=== PATIENT | female | born 1985 | race Caucasian/White ===

== ENCOUNTER → 2018-02-10 16:36 | Outpatient (CLI) | payer MEDICAID, SELFPAY | PROVIDERS: Visit Provider Obstetrics & Gynecology | DX: R31.9 Hematuria, unspecified (principal) | CPT/HCPCS: 87086; 87088 ==

== ENCOUNTER → 2018-05-16 11:19 | Outpatient (CLI) | payer MEDICAID, SELFPAY ==
[2018-05-16 15:18] LABS: Chlamydia Trachomatis by PCR Negative (Negative); Neisserai gonorrhoeae by PCR Negative (Negative); Probe Check PASS; Sample Adequacy Control PASS; Specimen Processing Control PASS
== END ==
PROVIDERS: Visit Provider Obstetrics & Gynecology
DX: Z11.3 Encounter for screening for infections with a predominantly sexual mode of transmission (principal)
CPT/HCPCS: 87491; 87591

== ENCOUNTER → 2018-08-29 16:53 | Outpatient (CLI) | payer MEDICAID, SELFPAY ==
[2018-08-29 18:58] LABS: Chlamydia Trachomatis by PCR Negative (Negative); Neisserai gonorrhoeae by PCR Negative (Negative); Probe Check PASS; Sample Adequacy Control PASS; Specimen Processing Control PASS
== END ==
PROVIDERS: Visit Provider Obstetrics & Gynecology
DX: N39.0 Urinary tract infection, site not specified (principal); Z11.3 Encounter for screening for infections with a predominantly sexual mode of transmission
CPT/HCPCS: 87086; 87088; 87491; 87591

== ENCOUNTER → 2018-10-20 11:15 | Outpatient (CLI) | payer MEDICAID, SELFPAY ==
[2018-10-20 15:11] LABS: HIV - WCH Non-Reactive (Nonreactive)
[2018-10-26 08:22] LABS: HPV HC, High Risk Positive (Negative); HPV Reflexed? YES, CHARGE PATIENT
--- OUTSIDE RECORDS SUMMARY | 2018-12-15 09:33 | XMS RPT_ITS ---
:1985 Author Organization OHIP Care Team Providers Name Role Phone LUIS FERNANDO FLORES Attending Unavailable LUIS FERNANDO FLORES Referring Unavailable LUIS FERNANDO FLORES Referring Unavailable LUIS FERNANDO FLORES Attending Unavailable LUIS FERNANDO FLORES Attending Unavailable SANDRA LUIS FERNANDO L Referring Unavailable FRANCISCO LEELA L ([facility]) Attending Unavailable FRANCISCO LEELA L ([facility]) Referring Unavailable FRANCISCO, LEELA L ([facility]) Referring Unavailable Marge Haro Attending Unavailable Marge Haro Attending Unavailable Marge Haro Attending Unavailable Marge Haro Attending Unavailable PROBLEMS PROBLEMS DATE TYPE CONDITION / CODE ATTENDING STATUS SOURCE 10/20/2018 Unknown Z12.4 - Encounter Marge Haro Active [facility] for screening for Community malignant neoplasm [facility] / Repository Z12.4(ICD-10) 10/20/2018 Unknown Z11.3 - Encounter Marge Haro Active [facility] for screening for Community infections with a Hospital predominantly Repository sexual mode of transmission / Z11.3(ICD-10) 08/29/2018 Unknown N39.0 - Urinary Marge Haro Active [facility] tract infection, Community site not specified Hospital / N39.0(ICD-10) Repository 06/23/2018 Active Lower abdominal NA Active [facility] pain, unspecified / [facility] [place] R10.30(ICD-10) Repository 06/23/2018 Active Diarrhea, NA Active [facility] unspecified / [place] R19.7(ICD-10) Repository 06/23/2018 Active Cervicalgia / NA Active [facility] M54.2(ICD-10) [facility] Repository 02/27/2018 Active Other detention NA Active [facility] (current) drug [facility] therapy / Repository Z79.899(ICD-10) 02/27/2018 Active Nontoxic NA Active [facility] multinodular goiter [facility] / E04.2(ICD-10) Repository 02/10/2018 Unknown R31.9 - Hematuria, Marge Haro Active [facility] unspecified / Community R31.9(ICD-10) Hospital Repository PROCEDURES PROCEDURES No Procedure Records FoundRESULTS RESULTS HIV - [facility] Collected: 10/20/2018 Status: F Source: [facility] 11:18 AM [facility] REPOSITORY TYPE CODE TESTS RESULT OUT OF RANGE REFERENCE UNITS LAB L3890.6005 Nonreactive Normal HIV - [facility] Non-Reactive Performed By: #### L3890.6005 #### [facility] [place], [address] PAP I-G W/RFX HRHPV Collected: 10/20/2018 Status: F Source: [facility] 10:45 AM [facility] REPOSITORY Order Comment: CYTOLOGY INFORMATION: - CLINICAL INFORMATION: - DATE LMP/MENOPAUSE: 10/15/18 LMP - COLLECTION VIAL: Thin Prep Vial - FILTER WASHER SOURCE: CERVICAL/ENDOCERVICAL - COLLECTION TECHNIQUE: BRUSH/SPATULA Specimen Comment: [id number] Specimen Comment: Source.............Cervix;Endocervix Specimen Comment: LMP / Prev Treat...[id number] Specimen Comment: No. of containers..01 ThinPrep Vial TYPE CODE TESTS RESULT OUT OF REFERENCE UNITS RANGE LAB L7400.0800 . High DIAGN Comment Result Comment: EPITHELIAL CELL ABNORMALITY. ATYPICAL SQUAMOUS CELLS OF UNDETERMINED SIGNIFICANCE. LAB L7400.0900 . Normal ADEQ Comment Result Comment: Satisfactory for evaluation. Endocervical and/or squamous metaplastic cells (endocervical component) are present. LAB L7400.1300 . High RECOMM Comment Result Comment: Suggest follow up as clinically appropriate. LAB L7400.1400 . Normal PERFORM Comment Result Comment: Tenzin Delatorre, Quality Control Associate (ASCP) LAB L7400.1700 . Normal SIGN Comment Result Comment: Mich Loza MD, Pathologist LAB L7400.1720 . Normal Path prov. Comment ICD9 Result Comment: R87.610 LAB L7400.2575 . Normal TEST METHOD Comment Result Comment: This liquid based ThinPrep(R) pap test was screened with the use of an image guided system. LAB L7400.2600 . Normal . COMM LAB L7400.2700 . Normal PAPSMR Comment Result Comment: The Pap smear is a screening test designed to aid in the detection of premalignant and malignant conditions of the uterine cervix. It is not a diagnostic procedure and should not be used as the sole means of detecting cervical cancer. Both false-positive and false-negative reports do occur. LAB L7400.2800 . Normal HPV RFLX Comment Result Comment: See below for HPV testing results. LAB L7400.2900 Negative High HPV HC,HGH Positive RISK Result Comment: This high-risk HPV test detects thirteen high-risk types (16/18/31/33/35/39/45/51/52/56/58/59/68) without differentiation. Performed at: - [facility] [id number] [employer] Specialist: Francie Evans MD, Phone: [phone] Performed at: =[facility] [id number] [employer] Specialist: Francie Evans MD, Phone: [phone] Performed By: #### L7400.0350 #### [facility] (refer to report for specific site) refer to report for address and phone number PROGRESS Observed: 09/25/2018 Status: COMPLETED Source: [facility] 1:33 PM [facility] RE[facility] HNO ID: [id number] Author: Gala Nazario Service: (none) Author Type: Nurse Practitioner Type: Progress Notes Filed: 09/25/2018 1:41 PM Note Text: Subjective HPI Pt presents with c/o flu like sx x 4 days. Reports abrupt onset, sneezing, runny nose, sore throat, fever, chills, myalgias, frequent, dry, nonproductive cough. Did not get influenza vaccines this season. No known exposure to sick contacts. Has been taking dayquil with minimal improvement of sx. Denies increased WOB, dyspnea. Review of Systems Constitutional: Positive for chills, fever and malaise/fatigue. HENT: Positive for congestion and sore throat. Negative for ear pain and sinus pain. Respiratory: Positive for cough. Negative for hemoptysis, sputum production, shortness of breath and wheezing. Musculoskeletal: Positive for myalgias. Skin: Negative for rash. Objective Physical Exam Constitutional: She is oriented to person, place, and time and well-developed, well-nourished, and in no distress. No distress. HENT: Head: Normocephalic. Right Ear: Hearing, tympanic membrane, external ear and ear canal normal. Left Ear: Hearing, tympanic membrane, external ear and ear canal normal. Nose: Nose normal. Right sinus exhibits no maxillary sinus tenderness and no frontal sinus tenderness. Left sinus exhibits no maxillary sinus tenderness and no frontal sinus tenderness. Mouth/Throat: Uvula is midline, oropharynx is clear and moist and mucous membranes are normal. No oropharyngeal exudate, posterior oropharyngeal edema, posterior oropharyngeal erythema or tonsillar abscesses. Eyes: Pupils are equal, round, and reactive to light. Conjunctivae are normal. Right eye exhibits no discharge. Left eye exhibits no discharge. Neck: Neck supple. Cardiovascular: Normal rate, regular rhythm and normal heart sounds. Exam reveals no gallop and no friction rub. No murmur heard. Pulmonary/Chest: Effort normal and breath sounds normal. No accessory muscle usage. No tachypnea. No respiratory distress. She has no decreased breath sounds (CTA, good air movement throughout, no cough noted during exam.). She has no wheezes. She has no rhonchi. She has no rales. Lymphadenopathy: She has no cervical adenopathy. Neurological: She is alert and oriented to person, place, and time. Skin: Skin is warm. She is not diaphoretic. BP 118/80 Pulse 98 Temp 37.4 ?C (99.3 ?F) (Tympanic) Wt 91 kg (200 lb 9.6 oz) SpO2 95% BMI 36.69 kg/m? .Patient presents with: Cough: chills/night sweats, congestion x3-4 days PAST MEDICAL HISTORY Diagnosis Date - Left knee pain since childhood - Left thyroid nodule 02/2016 - PMH - PAST MEDICAL HISTORY OF CHILDHOOD SEIZURES; none since age 8 - induced hypertension - Thyromegaly 02/2016 PAST SURGICAL HISTORY Procedure Laterality Date - [facility] 2010 - REMOVAL OF TONSILS,<12 Y/O 2000 Tonsillectomy ALLERGIES Amoxicillin MEDICATIONS fluticasone (FLONASE) 50 mcg/actuation nasal spray Use 2 Sprays in each nostril once daily. Rinse mouth after use. cetirizine (ZYRTEC) 10 mg tablet Take 1 tablet by mouth once daily. Cayiaaxghxslv-Bddhnwzfyfxjz-WH (TYLENOL COLD HEAD CONGEST SEVR) 5-325-200 mg tab Take 1 Dose by mouth as directed. benzonatate (TESSALON PERLES) 100 mg capsule Take 1 capsule by mouth three times daily as needed. lidocaine viscous (LIDOCAINE VISCOUS) 2 % solution Gargle and spit 10-15mLs every 3-4 hours as need for throat discomfort. FAMILY HISTORY Problem Relation Age of Onset - Alcohol/Drug Mother ALCOHOL - Alcohol/Drug Father ALCOHOL AND DRUGS - Diabetes Maternal Grandmother - Emphysema Maternal Grandmother - Stroke Maternal Grandmother - Asthma Brother - Heart Maternal Aunt 45 - Heart Maternal Uncle 45 Social History Substance Use Topics - Smoking status: Never Smoker - Smokeless tobacco: Never Used - Alcohol use No ASSESSMENT/PLAN: 1. Influenza-like illness - ICD9: 799.89, ICD10: R69 - VUHFHAMFTACZJ-ZISHMEAADVHQB-QOAFDHQSNCG 5 MG-325 MG-200 MG TABLET - BENZONATATE 100 MG CAPSULE - LIDOCAINE 2 % MUCOSAL SOLUTION Reviewed and printed influenza education. The patient is instructed to return or seek emergency treatment if symptoms become worse or with any acute change in condition. The patient verbalizes understanding and is in agreement with plan of care. Gala Nazario CNP CNOV Observed: 09/25/2018 Status: COMPLETED Source: [place] 1:30 PM [facility] REPOSITORY Office Visit (WSTR) CATRACHITA LANDERS ([id number]) 1985 F Date Time Provider Department 09/25/18 1:30 PM GALA NAZARIO [facility] During your visit today, we recorded the following information about you: Temperature Pulse Blood pressure Weight 99.3 degrees 98/minute 118/80 91 kg Gala Nazario APRN.CNP 09/25/2018 1:31 PM Signed Flu (Influenza) What is the flu? The flu is a viral infection of the nose, throat, trachea, and bronchi that occurs every winter. Major epidemics every 3 or 4 years (for example, influenza). The main symptoms are a stuffy nose, sore throat, and nagging cough. There may be more muscle pain, headache, fever, and chills than colds usually cause. For most people, influenza is just a bad cold and bed rest is not necessary. Flu is not dangerous to people who are otherwise healthy. How can I take care of my child? The treatment of flu depends on a child's main symptoms and is no different from the treatment for other viral respiratory infections. Bed rest is not necessary. Fever or aches Use acetaminophen (Tylenol) every 6 hours or ibuprofen (Advil) every 8 hours for fever over 102?F (39?C). Children and adolescents who may have influenza should never take aspirin because it may cause Reji's syndrome. Cough or hoarseness For children over age 4 give cough drops. If your child is 1 to 4 years old, give corn syrup (1/2 to 1 teaspoon as needed). Sore throat Use hard candy for children over 4 years old. Warm chicken broth may also help children over 1 year old. Stuffy nose Warm-water or saline nosedrops and suction (or nose blowing) will open most blocked noses. Use nasal washes at least four times a day or whenever your child can't breathe through the nose. Saline nosedrops are made by adding 1/2 teaspoon of salt to 1 cup of warm water. Contagiousness Influenza spreads rapidly because the incubation period is only 24 to 36 hours and the virus is very contagious. Your child may return to day care or school after the fever is gone and he feels up to it. Does my child need antiviral medicine? Most healthcare providers do not use antiviral medicines because they only reduce the time that your child is sick by a day or so. Usually the runny nose lasts 7 to 14 days and the cough lasts 2 to 3 weeks. All antiviral medicines must be given within 48 hours of the start of influenza symptoms to have an effect. Antiviral medicine is usually only used to treat children at high-risk for complications from the flu. Talk with your healthcare provider about this. Does my child need a flu shot? Yearly flu shots have always been recommended for high-risk children over 6 months of age. These children often have complications from influenza, such as pneumonia. Parents and siblings of high-risk children should also get a flu shot. Children are considered high-risk if they have the following conditions: Lung disease, such as asthma Heart disease, such as a congenital heart disease Muscle disease, such as muscular dystrophy Metabolic disease, such as diabetes Renal disease, such as nephrotic syndrome Cancer or immune system conditions Diseases requiring long-term aspirin therapy. In 2006, the [place] [employer] added all children age 6 months to 5 years to the list of people who should get a flu shot. Recent research has shown that healthy children younger than 24 months are at as great a risk of complications as children with the high-risk conditions listed above. When should I call my child's healthcare provider? Call IMMEDIATELY if: Your child is having trouble breathing. Your child starts to act very sick. Call during office hours if: Your child develops any complications such as an earache, sinus pain or pressure, or a fever lasting over 3 days. You have other questions or concerns. Published by [employer]. This content is reviewed periodically and is subject to change as new health information becomes available. The information is intended to inform and educate and is not a replacement for medical evaluation, advice, diagnosis or treatment by a healthcare professional. Written by Vipul Alexis M.D., author of Your Child's Health, [employer]. Copyright ? 2006 [employer] and/or one of its subsidiaries. All Rights Reserved. Copyright ? [employer] 2008 Pediatric Advisor Gala Nazario APRN.REFINERY PIPELINE OPERATOR 09/25/2018 1:41 PM Signed Subjective HPI Pt presents with c/o flu like sx x 4 days. Reports abrupt onset, sneezing, runny nose, sore throat, fever, chills, myalgias, frequent, dry, nonproductive cough. Did not get influenza vaccines this season. No known exposure to sick contacts. Has been taking dayquil with minimal improvement of sx. Denies increased WOB, dyspnea. Review of Systems Constitutional: Positive for chills, fever and malaise/fatigue. HENT: Positive for congestion and sore throat. Negative for ear pain and sinus pain. Respiratory: Positive for cough. Negative for hemoptysis, sputum production, shortness of breath and wheezing. Musculoskeletal: Positive for myalgias. Skin: Negative for rash. Objective Physical Exam Constitutional: She is oriented to person, place, and time and well-developed, well-nourished, and in no distress. No distress. HENT: Head: Normocephalic. Right Ear: Hearing, tympanic membrane, external ear and ear canal normal. Left Ear: Hearing, tympanic membrane, external ear and ear canal normal. Nose: Nose normal. Right sinus exhibits no maxillary sinus tenderness and no frontal sinus tenderness. Left sinus exhibits no maxillary sinus tenderness and no frontal sinus tenderness. Mouth/Throat: Uvula is midline, oropharynx is clear and moist and mucous membranes are normal. No oropharyngeal exudate, posterior oropharyngeal edema, posterior oropharyngeal erythema or tonsillar abscesses. Eyes: Pupils are equal, round, and reactive to light. Conjunctivae are normal. Right eye exhibits no discharge. Left eye exhibits no discharge. Neck: Neck supple. Cardiovascular: Normal rate, regular rhythm and normal heart sounds. Exam reveals no gallop and no friction rub. No murmur heard. Pulmonary/Chest: Effort normal and breath sounds normal. No accessory muscle usage. No tachypnea. No respiratory distress. She has no decreased breath sounds (CTA, good air movement throughout, no cough noted during exam.). She has no wheezes. She has no rhonchi. She has no rales. Lymphadenopathy: She has no cervical adenopathy. Neurological: She is alert and oriented to person, place, and time. Skin: Skin is warm. She is not diaphoretic. BP 118/80 Pulse 98 Temp 37.4 ?C (99.3 ?F) (Tympanic) Wt 91 kg (200 lb 9.6 oz) SpO2 95% BMI 36.69 kg/m? .Patient presents with: Cough: chills/night sweats, congestion x3-4 days PAST MEDICAL HISTORY Diagnosis Date - Left knee pain since childhood - Left thyroid nodule 02/2016 - PMH - PAST MEDICAL HISTORY OF CHILDHOOD SEIZURES; none since age 8 - induced hypertension - Thyromegaly 02/2016 PAST SURGICAL HISTORY Procedure Laterality Date - [facility] 2010 - REMOVAL OF TONSILS,<12 Y/O 2000 Tonsillectomy ALLERGIES Amoxicillin MEDICATIONS fluticasone (FLONASE) 50 mcg/actuation nasal spray Use 2 Sprays in each nostril once daily. Rinse mouth after use. cetirizine (ZYRTEC) 10 mg tablet Take 1 tablet by mouth once daily. Oojbmunqmjpka-Jhpxcrvhefrys-UL (TYLENOL COLD HEAD CONGEST SEVR) 5-325-200 mg tab Take 1 Dose by mouth as directed. benzonatate (TESSALON PERLES) 100 mg capsule Take 1 capsule by mouth three times daily as needed. lidocaine viscous (LIDOCAINE VISCOUS) 2 % solution Gargle and spit 10-15mLs every 3-4 hours as need for throat discomfort. FAMILY HISTORY Problem Relation Age of Onset - Alcohol/Drug Mother ALCOHOL - Alcohol/Drug Father ALCOHOL AND DRUGS - Diabetes Maternal Grandmother - Emphysema Maternal Grandmother - Stroke Maternal Grandmother - Asthma Brother - Heart Maternal Aunt 45 - Heart Maternal Uncle 45 Social History Substance Use Topics - Smoking status: Never Smoker - Smokeless tobacco: Never Used - Alcohol use No ASSESSMENT/PLAN: 1. Influenza-like illness - ICD9: 799.89, ICD10: R69 - YFRXYVPUCGNHX-PLRJXNXWIEZDW-JFTQLTDMGQN 5 MG-325 MG-200 MG TABLET - BENZONATATE 100 MG CAPSULE - LIDOCAINE 2 % MUCOSAL SOLUTION Reviewed and printed influenza education. The patient is instructed to return or seek emergency treatment if symptoms become worse or with any acute change in condition. The patient verbalizes understanding and is in agreement with plan of care. Gala Nazario CNP Referring Provider: SELF [200] Allergies As of Date: 09/25/2018 Noted Allergy Reaction AMOXICILLIN 12/07/2010 16 - Unknown Date Reviewed: 09/25/2018 Reviewed by: Love Espinoza Ma - Fully Assessed Reason for Visit: Cough [28] Cmt: chills/night sweats, congestion x3-4 days Reason For Visit History Recorded Primary Visit Diagnosis:Influenza-like illness [R69] Order(s):Izbanwzegqsyw-Agqxcwrkyuuju-CK (TYLENOL COLD HEAD CONGEST SEVR) 5-325-200 mg tabTake 1 Dose by mouth as directed.Disp: 30 tabletRfl: 0 benzonatate (TESSALON PERLES) 100 mg capsuleTake 1 capsule by mouth three times daily as needed.Disp: 40 capsuleRfl: 0 lidocaine viscous (LIDOCAINE VISCOUS) 2 % solutionGargle and spit 10-15mLs every 3-4 hours as need for throat discomfort.Disp: 120 mLRfl: 0 Prescriptions as of 09/25/2018 Sig: FLUTICASONE 50 MCG/ACTUATION * Use 2 Sprays in each nostril * CETIRIZINE 10 MG TABLET Take 1 tablet by mouth once d* JEDQCYINLPNTY-ETIAMYTVTELMN-P* Take 1 Dose by mouth as direc* BENZONATATE 100 MG CAPSULE Take 1 capsule by mouth three* LIDOCAINE 2 % MUCOSAL SOLUTION Gargle and spit 10-15mLs ever* Problem List As Of Date 09/25/2018 Noted Resolved Supervision of normal first [Z34.00] INVALID FOR*06/23/2018 Pain in thoracic spine [M54.6] INVALID FOR*06/23/2018 Pain in joint, lower leg [M25.569] INVALID FOR*06/23/2018 Patellar dislocation [S83.006A] INVALID FOR*06/23/2018 Chronic lymphocytic thyroiditis [E06.3] INVALID FOR* Other instructions from your clinician: Flu (Influenza) What is the flu? The flu is a viral infection of the nose, throat, trachea, and bronchi that occurs every winter. Major epidemics every 3 or 4 years (for example, influenza). The main symptoms are a stuffy nose, sore throat, and nagging cough. There may be more muscle pain, headache, fever, and chills than colds usually cause. For most people, influenza is just a bad cold and bed rest is not necessary. Flu is not dangerous to people who are otherwise healthy. How can I take care of my child? The treatment of flu depends on a child's main symptoms and is no different from the treatment for other viral respiratory infections. Bed rest is not necessary. Fever or aches Use acetaminophen (Tylenol) every 6 hours or ibuprofen (Advil) every 8 hours for fever over 102?F (39?C). Children and adolescents who may have influenza should never take aspirin because it may cause Reji's syndrome. Cough or hoarseness For children over age 4 give cough drops. If your child is 1 to 4 years old, give corn syrup (1/2 to 1 teaspoon as needed). Sore throat Use hard candy for children over 4 years old. Warm chicken broth may also help children over 1 year old. Stuffy nose Warm-water or saline nosedrops and suction (or nose blowing) will open most blocked noses. Use nasal washes at least four times a day or whenever your child can't breathe through the nose. Saline nosedrops are made by adding 1/2 teaspoon of salt to 1 cup of warm water. Contagiousness Influenza spreads rapidly because the incubation period is only 24 to 36 hours and the virus is very contagious. Your child may return to day care or school after the fever is gone and he feels up to it. Does my child need antiviral medicine? Most healthcare providers do not use antiviral medicines because they only reduce the time that your child is sick by a day or so. Usually the runny nose lasts 7 to 14 days and the cough lasts 2 to 3 weeks. All antiviral medicines must be given within 48 hours of the start of influenza symptoms to have an effect. Antiviral medicine is usually only used to treat children at high-risk for complications from the flu. Talk with your healthcare provider about this. Does my child need a flu shot? Yearly flu shots have always been recommended for high- risk children over 6 months of age. These children often have complications from influenza, such as pneumonia. Parents and siblings of high-risk children should also get a flu shot. Children are considered high-risk if they have the following conditions: Lung disease, such as asthma Heart disease, such as a congenital heart disease Muscle disease, such as muscular dystrophy Metabolic disease, such as diabetes Renal disease, such as nephrotic syndrome Cancer or immune system conditions Diseases requiring long-term aspirin therapy. In 2006, the [employer] [employer] added all children age 6 months to 5 years to the list of people who should get a flu shot. Recent research has shown that healthy children younger than 24 months are at as great a risk of complications as children with the high- risk conditions listed above. When should I call my child's healthcare provider? Call IMMEDIATELY if: Your child is having trouble breathing. Your child starts to act very sick. Call during office hours if: Your child develops any complications such as an earache, sinus pain or pressure, or a fever lasting over 3 days. You have other questions or concerns. Published by [employer]. This content is reviewed periodically and is subject to change as new health information becomes available. The information is intended to inform and educate and is not a replacement for medical evaluation, advice, diagnosis or treatment by a healthcare professional. Written by Vipul Alexis M.D., author of Your Child's Health, [employer]. Copyright ? 2006 [employer] and/or one of its subsidiaries. All Rights Reserved. Copyright ? [employer] Systems 2007 Pediatric Advisor Prescriptions ordered this encounter Disp Refills Start End ZETSFUIZUYEXJ-NFQPQTRJDIDCK-GYQQGKWX* 30 t* 0 09/25/2018 Route: ORAL Sig: Take 1 Dose by mouth as directed. BENZONATATE 100 MG CAPSULE 40 c* 0 09/25/2018 Route: ORAL Sig: Take 1 capsule by mouth three times daily as needed. LIDOCAINE 2 % MUCOSAL SOLUTION 120 * 0 09/25/2018 Sig: Gargle and spit 10-15mLs every 3-4 hours as need for throat discomfort. Encounter Status:Closed by GALA NAZARIO CNP on 09/25/18 CT/NG [facility] BY PCR Collected: 08/29/2018 Status: F Source: [place] 3:30 PM [facility] REPOSITORY TYPE CODE TESTS RESULT OUT OF RANGE REFERENCE UNITS LAB L8200.2100 Negative Normal Chlam Negative Trac PCR LAB L8200.2200 Negative Normal NG by Negative PCR Performed By: #### L8200.1999 #### [facility] [facility] [place], [address] Observed: 08/29/2018 Status: F Source: SHAINA CULTURE, URINE 3:30 PM [facility] REPOSITORY Urine Culture Below infection level. ORGANISM 1: Mixed Gram Positive Organisms Fans[place]we Count 1000-10,000 Performed By: #### M100.0650 #### [facility] [address] [place], [address] PROGRESS Observed: 07/10/2018 Status: COMPLETED Source: ETLAN 8:50 PM [facility] REPOSITORY HNO ID: [id number] Author: Alee Levy (Elia) Biju Service: (none) Author Type: Nurse Practitioner Type: Progress Notes Filed: 07/10/2018 8:53 PM Note Text: Subjective HPI Patient presents with: Eye Problem: bilateral eye burning and itching, left eye red and swollen x today, pt states frequently rubbing eyes Nasal Congestion: sneezing, allergies Taking Zyrtec daily with no relief. ROS All other reviewed and negative other than HPI. PAST MEDICAL HISTORY Diagnosis Date - Left knee pain since childhood - Left thyroid nodule 02/2016 - PMH - PAST MEDICAL HISTORY OF CHILDHOOD SEIZURES; none since age 8 - induced hypertension - Thyromegaly 02/2016 PAST SURGICAL HISTORY Procedure Laterality Date - MIRENA 2010 - REMOVAL OF TONSILS,<11 Y/O 2000 Tonsillectomy ALLERGIES Amoxicillin MEDICATIONS cetirizine (ZYRTEC) 10 mg tablet Take 1 tablet by mouth once daily. predniSONE (DELTASONE) 20 mg tablet Take 2 tablets by mouth once daily for 4 days. Take daily with food. fluticasone (FLONASE) 50 mcg/actuation nasal spray Use 2 Sprays in each nostril once daily. Rinse mouth after use. FAMILY HISTORY Problem Relation Age of Onset - Alcohol/Drug Mother ALCOHOL - Alcohol/Drug Father ALCOHOL AND DRUGS - Diabetes Maternal Grandmother - Emphysema Maternal Grandmother - Stroke Maternal Grandmother - Asthma Brother - Heart Maternal Aunt 45 - Heart Maternal Uncle 45 Social History Substance Use Topics - Smoking status: Never Smoker - Smokeless tobacco: Never Used - Alcohol use No Objective Physical Exam Constitutional: She is well-developed, well-nourished, and in no distress. HENT: Head: Normocephalic. Right Ear: Tympanic membrane, external ear and ear canal normal. Left Ear: Tympanic membrane, external ear and ear canal normal. Nose: Rhinorrhea present. Right sinus exhibits no maxillary sinus tenderness and no frontal sinus tenderness. Left sinus exhibits no maxillary sinus tenderness and no frontal sinus tenderness. Mouth/Throat: No posterior oropharyngeal erythema (PND). Eyes: Pupils are equal, round, and reactive to light. EOM are normal. Right eye exhibits discharge (watery). Left eye exhibits discharge (watery). Right conjunctiva is injected (mild). Left conjunctiva is injected (mild). Visual acuity intact Neck: Normal range of motion. Neck supple. Cardiovascular: Normal rate, regular rhythm and normal heart sounds. Pulmonary/Chest: Effort normal and breath sounds normal. No respiratory distress. She has no wheezes. Abdominal: Soft. She exhibits no distension. There is no tenderness. Lymphadenopathy: She has no cervical adenopathy. Skin: Skin is warm and dry. No rash noted. Nursing note and vitals reviewed. ASSESSMENT/PLAN: 1. Acute conjunctivitis of both eyes, unspecified acute conjunctivitis type - ICD9: 372.00, ICD10: H10.33 Allergic - see medication orders - course and contagiousness issues discussed, including hand washing. - Instructed to call if high fever, development of periorbital redness or swelling, eye pain, visual changes, concerns or if symptoms persist. Prescription instructions reviewed with patient as applicable. Patient advised if symptoms do not improve or if symptoms worsen sooner, to contact their primary care physician. Potential red flag symptoms discussed with the patient. Reviewed appropriate action plan to take if red flag symptoms occur. Patient agreeable to treatment plan. Alee Mckeon APRN.REFINERY PIPELINE OPERATOR CNOV Observed: 07/10/2018 Status: COMPLETED Source: ETLAN 8:00 PM [facility] REPOSITORY Office Visit (WSTR) CARTACHITA LANDERS ([id number]) 1985 F Date Time Provider Department 07/10/18 8:00 PM ALEE MCKEON (INTERACTIVE MEDIA MARKETING SPECIALIST) WSTR During your visit today, we recorded the following information about you: Temperature Pulse Respiration Blood pressure 99.8 degrees 80/minute 16/minute 112/76 Weight 88 kg Alee Mildred Mckeon APRN.REFINERY PIPELINE OPERATOR 07/10/2018 8:53 PM Signed Subjective HPI Patient presents with: Eye Problem: bilateral eye burning and itching, left eye red and swollen x today, pt states frequently rubbing eyes Nasal Congestion: sneezing, allergies Taking Zyrtec daily with no relief. ROS All other reviewed and negative other than HPI. PAST MEDICAL HISTORY Diagnosis Date - Left knee pain since childhood - Left thyroid nodule 02/2016 - PMH - PAST MEDICAL HISTORY OF CHILDHOOD SEIZURES; none since age 8 - induced hypertension - Thyromegaly 02/2016 PAST SURGICAL HISTORY Procedure Laterality Date - MIRENA 2010 - REMOVAL OF TONSILS,<11 Y/O 2000 Tonsillectomy ALLERGIES Amoxicillin MEDICATIONS cetirizine (ZYRTEC) 10 mg tablet Take 1 tablet by mouth once daily. predniSONE (DELTASONE) 20 mg tablet Take 2 tablets by mouth once daily for 4 days. Take daily with food. fluticasone (FLONASE) 50 mcg/actuation nasal spray Use 2 Sprays in each nostril once daily. Rinse mouth after use. FAMILY HISTORY Problem Relation Age of Onset - Alcohol/Drug Mother ALCOHOL - Alcohol/Drug Father ALCOHOL AND DRUGS - Diabetes Maternal Grandmother - Emphysema Maternal Grandmother - Stroke Maternal Grandmother - Asthma Brother - Heart Maternal Aunt 45 - Heart Maternal Uncle 45 Social History Substance Use Topics - Smoking status: Never Smoker - Smokeless tobacco: Never Used - Alcohol use No Objective Physical Exam Constitutional: She is well-developed, well-nourished, and in no distress. HENT: Head: Normocephalic. Right Ear: Tympanic membrane, external ear and ear canal normal. Left Ear: Tympanic membrane, external ear and ear canal normal. Nose: Rhinorrhea present. Right sinus exhibits no maxillary sinus tenderness and no frontal sinus tenderness. Left sinus exhibits no maxillary sinus tenderness and no frontal sinus tenderness. Mouth/Throat: No posterior oropharyngeal erythema (PND). Eyes: Pupils are equal, round, and reactive to light. EOM are normal. Right eye exhibits discharge (watery). Left eye exhibits discharge (watery). Right conjunctiva is injected (mild). Left conjunctiva is injected (mild). Visual acuity intact Neck: Normal range of motion. Neck supple. Cardiovascular: Normal rate, regular rhythm and normal heart sounds. Pulmonary/Chest: Effort normal and breath sounds normal. No respiratory distress. She has no wheezes. Abdominal: Soft. She exhibits no distension. There is no tenderness. Lymphadenopathy: She has no cervical adenopathy. Skin: Skin is warm and dry. No rash noted. Nursing note and vitals reviewed. ASSESSMENT/PLAN: 1. Acute conjunctivitis of both eyes, unspecified acute conjunctivitis type - ICD9: 372.00, ICD10: H10.33 Allergic - see medication orders - course and contagiousness issues discussed, including hand washing. - Instructed to call if high fever, development of periorbital redness or swelling, eye pain, visual changes, concerns or if symptoms persist. Prescription instructions reviewed with patient as applicable. Patient advised if symptoms do not improve or if symptoms worsen sooner, to contact their primary care physician. Potential red flag symptoms discussed with the patient. Reviewed appropriate action plan to take if red flag symptoms occur. Patient agreeable to treatment plan. Alee Mckeon APRN.REFINERY PIPELINE OPERATOR Referring Provider: SELF [200] Allergies As of Date: 07/10/2018 Noted Allergy Reaction AMOXICILLIN 12/07/2010 16 - Unknown Date Reviewed: 07/10/2018 Reviewed by: Fani Perea Ma - Fully Assessed Reason for Visit: Eye Problem [43] Cmt: bilateral eye burning and itching, left eye red and swollen x today Nasal Congestion [235] Cmt: allegeries Primary Visit Diagnosis:Acute conjunctivitis of both eyes, unspecified acute conjunctivitis type [H10.33] Order(s):predniSONE (DELTASONE) 20 mg tabletTake 2 tablets by mouth once daily for 4 days. Take daily with food.Disp: 8 tabletRfl: 0 fluticasone (FLONASE) 50 mcg/actuation nasal sprayUse 2 Sprays in each nostril once daily. Rinse mouth after use.Disp: 1 BottleRfl: 0 Prescriptions as of 07/10/2018 Sig: CETIRIZINE 10 MG TABLET Take 1 tablet by mouth once d* PREDNISONE 20 MG TABLET Take 2 tablets by mouth once * FLUTICASONE 50 MCG/ACTUATION * Use 2 Sprays in each nostril * Problem List As Of Date 07/10/2018 Noted Resolved Supervision of normal first [Z34.00] INVALID FOR*06/23/2018 Pain in thoracic spine [M54.6] INVALID FOR*06/23/2018 Pain in joint, lower leg [M25.569] INVALID FOR*06/23/2018 Patellar dislocation [S83.006A] INVALID FOR*06/23/2018 Chronic lymphocytic thyroiditis [E06.3] INVALID FOR* Prescriptions ordered this encounter Disp Refills Start End PREDNISONE 20 MG TABLET 8 ta* 0 07/10/2018 07/14/2018 Route: ORAL Sig: Take 2 tablets by mouth once daily for 4 days. Take daily with food. FLUTICASONE 50 MCG/ACTUATION NASAL S* 1 Yusuf* 0 07/10/2018 Route: EACH NOSTRIL Sig: Use 2 Sprays in each nostril once daily. Rinse mouth after use. Disposition: Return if symptoms worsen or fail to improve. Follow-up and Disposition History Recorded Letter Text Alee Mckeon APRN.[facility] [address] [address] Dept: [phone] 07/10/2018 Catrachita Landers [address] [address] To Whom it May Concern: This is to certify that Catrachita Landers was seen at our office for medical care. Catrachita may return to work on 07/11/2018. If you have any questions please feel free to call. Sincerely: Alee Mckeon APRN.[facility] Encounter Status:Closed by ALEE MCKEON on 07/10/18 PROGRESS Observed: 06/23/2018 Status: COMPLETED Source: ETLAN 3:53 PM [facility] REPOSITORY HNO ID: [id number] Author: Erin Rao Rdms Service: (none) Author Type: (none) Type: Progress Notes Filed: 06/23/2018 3:53 PM Note Text: Radiology Service Progress Note PATIENT NAME: Catrachita Landers DATE OF SERVICE: June 23, 2018 TIME: 3:53 PM PATIENT IDENTITY VERIFICATION COMPLETED USING TWO (2) METHODS: Patient confirmed name verbally and Date of . PATIENT GENDER DATA: Female. status: : No status: NO. PATIENT RELEVANT IMPLANT DATA REVIEWED: Not Applicable RADIOLOGY DEPARTMENT: Ultrasound PERIPHERAL IV DATA: Not applicable SIGNED BY: Erin Rao Rdms June 23, 2018 3:53 PM US THYROID/PARATHYROID Observed: 06/23/2018 Status: F Source: ETLAN 3:52 PM [facility] REPOSITORY * * *Final Report* * * DATE OF EXAM: Jun 23 2018 3:52PM U 1048 - US THYROID/PARATHYROID / PROCEDURE REASON: Cervicalgia * * * * Physician Interpretation * * * * EXAMINATION: US THYROID/PARATHYROID HISTORY: Cervicalgia . TECHNIQUE: Grayscale and color Doppler images of the thyroid gland were obtained. COMPARISON: 03/20/2018 RESULT: Limited examination secondary to patient swallowing during the examination. The thyroid gland is heterogeneous in echotexture. The right lobe measures approximately 5.3 x 1.5 x 1.7 cm. The left lobe measures approximately 5.4 x 1.6 x 1.7 cm. The isthmus measures approximately 5 mm. Please note that the nodule seen within the left lobe and right isthmus on the prior examination are not appreciated on today's exam. IMPRESSION: Diffusely heterogeneous thyroid echotexture. Please note that the nodules seen within the left lobe and right isthmus on the prior examination are not appreciated on today's exam. Ground Service Equipment Mechanic[facility] Transcribe Date/Time: Jun 25 2018 4:44P Dictated by : HAJA COX MD This examination was interpreted and the report reviewed and electronically signed by: HAJA COX MD on Jun 25 2018 4:47PM EST [id number] CBC AND DIFFERENTIAL Collected: 06/23/2018 Status: F Source: ETLAN 2:47 PM [facility] REPOSITORY TYPE CODE TESTS RESULT OUT OF REFERENCE UNITS RANGE LAB WBC 3.70-11.00 k/uL WBC 7.33 LAB RBC 3.90-5.20 m/uL RBC 4.80 LAB HGB 11.5-15.5 g/dL Hemoglobin 14.7 LAB HCT 36.0-46.0 % Hematocrit 44.7 LAB MCV 80.0-100.0 fL MCV 93.1 LAB MCH 26.0-34.0 pG MCH 30.6 LAB MCHC 30.5-36.0 g/dL MCHC 32.9 LAB RDWCV 11.5-15.0 % RDW-CV 12.7 LAB PLTCT 150-400 k/uL Platelet Count 290 LAB MPV 9.0-12.7 fL MPV 9.1 LAB ANEUT % Neut% 56.9 LAB AANEUT 1.45-7.50 k/uL Abs Neut 4.17 LAB ALYMP % Lymph% 35.2 LAB AALYMP 1.00-4.00 k/uL Abs Lymph 2.58 LAB AMONO % Stoddard% 6.0 LAB AAMONO <0.87 k/uL Abs Stoddard 0.44 LAB AEOS % Eosin% 1.4 LAB AAEOS <0.46 k/uL Abs Eosin 0.10 LAB ABASO % Baso% 0.5 LAB AABASO <0.11 k/uL Abs Baso 0.04 LAB AUNRBC 0 /100 WBC NRBCs 0.0 LAB ABNRBC <0.01 k/uL Absolute nRBC <0.01 LAB DTYP DTYPE Auto Diff Performed By: #### CBCDIF, CMP, TSH #### [facility] [address], [place] [address] COMP METABOLIC PANEL Collected: 06/23/2018 Status: F Source: ETLAN 2:47 PM [facility] REPOSITORY TYPE CODE TESTS RESULT OUT OF REFERENCE UNITS RANGE LAB TP 6.3-8.0 g/dL Protein, Total 7.0 LAB ALB 3.9-4.9 g/dL Albumin 4.3 LAB CA 8.5-10.2 mg/dL Calcium, Total 9.4 LAB TBIL 0.2-1.3 mg/dL Bilirubin, Total 0.5 LAB ALKP 32-117 U/L Alkaline Phosphatase 51 LAB AST 13-35 U/L AST 35 LAB GLU 74-99 mg/dL Low Glucose 72 Result Comment: The [place] Diabetes Association (ADA) provides guidance for cutoff values for fasting glucose and random glucose. The ADA defines fasting as no caloric intake for at least 8 hours. Fas ting plasma glucose results between 100 to 125 mg/dL indicate increased risk for diabetes (prediabetes). Fasting plasma glucose results greater than or equal to 126 mg/dL meet the criteria for diagnosis of diabetes. In the absence of unequivocal hyperglycemia, results should be confirmed by repeat testing. In a patient with classic symptoms of hyperglycemia or hyperglycemic crisis, random plasma glucose results greater than or equal to 200 mg/dL meet the criteria for diagnosis of diabetes. Reference: Standards of Medical Care in Diabetes 2016, [place] Diabetes Association. Diabetes Care. 2016.39(Suppl 1). LAB BUN 7-21 mg/dL BUN 9 LAB CRET 0.58-0.96 mg/dL Creatinine 0.58 LAB NA 136-144 mmol/L Sodium 140 LAB K 3.7-5.1 mmol/L Potassium 3.9 LAB CL 97-105 mmol/L Chloride 100 LAB CO2 22-30 mmol/L CO2 26 LAB AGAP 9-18 mmol/L Anion Gap 14 LAB ALT 7-38 U/L ALT 33 LAB GFRAA eGFR- Amer. >60 LAB GFRNAA . eGFR-All Other Races >60 Result Comment: eGFR (Estimated GFR) Units of measure: mL/min/1.73 meters squared eGFR is derived from the reexpressed MDRD Study equation using the following parameters: serum creatinine, age, gender and race. The creatinine assay has been calibrated to be traceable to IDMS. An eGFR <60 mL/min/1.73m2 for >3 months is consistent with chronic kidney disease. Refer to KDOQI guidelines for clinical interpretation. In patients with unstable renal function, e.g. those with acute kidney injury, the eGFR may not accurately reflect actual GFR. Performed By: #### CBCDIF, CMP, TSH #### [facility] [address] [place], [place] [address] TSH Collected: 06/23/2018 Status: F Source: ETLAN 2:47 PM [facility] REPOSITORY TYPE CODE TESTS RESULT OUT OF RANGE REFERENCE UNITS LAB TSH 0.400-5.500 uU/mL TSH 3.670 Result Comment: If the patient is , TSH reference range varies by gestational period: First Trimester 0.100-2.500 uU/mL Second Trimester 0.200-3.000 uU/mL Third Trimester 0.300-3.000 uU/mL References: 1. De Delia L, Pablo M, Domingo EK, et al. Management of Thyroid Dysfunction during and : An Endocrine Society Clinical Practice Guideline. J Clin Endocrinol Metab, 2012:97:6602-8622. 2. Franko CHIU. Overview of thyroid disease in . UpToDate. 2016. Accessed on May 07, 2016. Performed By: #### CBCDIF, CMP, TSH #### [facility] [address] [place], [place] [address] PROGRESS Observed: 06/23/2018 Status: COMPLETED Source: ETLAN 1:36 PM [facility] REPOSITORY HNO ID: [id number] Author: Leela Rowe (Ahsan) Francisco Service: (none) Author Type: Nurse Practitioner Type: Progress Notes Filed: 06/23/2018 3:02 PM Note Text: HPI/CC: Catrachita Landers is a 33 year old female who presents for Diarrhea, abdominal cramping and bloating x 1 week) and Difficulty Swallowing feels like something is stuck in throat; tender to touch x 1 week. Neck pain is intermittent and 4/10. Denies fever, chills, N/V, Attempted acetaminophen. ROS as above, otherwise non-contributory. Reviewed PMHx, PSHx, social Hx, medications and allergies. PHYSICAL EXAMINATION: BP 106/64 Pulse 84 Temp 36.7 ?C (98.1 ?F) Resp 16 Wt 87.5 kg (193 lb) BMI 35.30 kg/m? General appearance: Well appearing, alert, in no acute distress, well-hydrated, well nourished. Skin: Skin color, texture, turgor normal, no suspicious rashes or lesions Oropharynx: Lips, mucosa, and tongue normal, teeth and gums normal, oropharynx normal Neck: Positive findings: thyroid: left side with tenderness to palpation Lungs: Lungs clear to auscultation. No wheezing, rhonchi, rales Heart: RRR without murmur, gallop, or rubs. No ectopy ASSESSMENT/PLAN: 1. Lower abdominal pain - ICD9: 789.09, ICD10: R10.30 (primary diagnosis) 2. Diarrhea, unspecified type - ICD9: 787.91, ICD10: R19.7 - UA DIP B/O - CBC + DIFF - COMP METABOLIC PANEL - TSH BLD 3. Neck pain - ICD9: 723.1, ICD10: M54.2 - US THYROID/PARATHYROID - CBC + DIFF - COMP METABOLIC PANEL - TSH BLD - f/u PRN Leela Singh APRN.[facility] Observed: 06/23/2018 Status: COMPLETED Source: ETLAN 1:20 PM [facility] REPOSITORY Office Visit (FAMPWS) CATRACHITA LANDERS ([id number]) 1985 F Date Time Provider Department 06/23/18 1:20 PM LEELA SINGH ([facility]) PATRICEWS During your visit today, we recorded the following information about you: Temperature Pulse Respiration Blood pressure 98.1 degrees 84/minute 16/minute 106/64 Weight 87.5 kg Leela Singh, LIZZIE 06/23/2018 3:02 PM Signed HPI/CC: Catrachita Landers is a 33 year old female who presents for Diarrhea, abdominal cramping and bloating x 1 week) and Difficulty Swallowing feels like something is stuck in throat; tender to touch x 1 week. Neck pain is intermittent and 4/10. Denies fever, chills, N/V, Attempted acetaminophen. ROS as above, otherwise non-contributory. Reviewed PMHx, PSHx, social Hx, medications and allergies. PHYSICAL EXAMINATION: BP 106/64 Pulse 84 Temp 36.7 ?C (98.1 ?F) Resp 16 Wt 87.5 kg (193 lb) BMI 35.30 kg/m? General appearance: Well appearing, alert, in no acute distress, well-hydrated, well nourished. Skin: Skin color, texture, turgor normal, no suspicious rashes or lesions Oropharynx: Lips, mucosa, and tongue normal, teeth and gums normal, oropharynx normal Neck: Positive findings: thyroid: left side with tenderness to palpation Lungs: Lungs clear to auscultation. No wheezing, rhonchi, rales Heart: RRR without murmur, gallop, or rubs. No ectopy ASSESSMENT/PLAN: 1. Lower abdominal pain - ICD9: 789.09, ICD10: R10.30 (primary diagnosis) 2. Diarrhea, unspecified type - ICD9: 787.91, ICD10: R19.7 - UA DIP B/O - CBC + DIFF - COMP METABOLIC PANEL - TSH BLD 3. Neck pain - ICD9: 723.1, ICD10: M54.2 - US THYROID/PARATHYROID - CBC + DIFF - COMP METABOLIC PANEL - TSH BLD - f/u PRN Leela Singh APRN.CNP Referring Provider: SELF [200] Allergies As of Date: 06/23/2018 Noted Allergy Reaction AMOXICILLIN 12/07/2010 16 - Unknown Date Reviewed: 06/23/2018 Reviewed by: Mich Umanzor LPN - Fully Assessed Reason for Visit: Diarrhea [35] Cmt: and bloating x 1 week Difficulty Swallowing [207] Cmt: feels like something is stuck in throat; tender to touch Primary Visit Diagnosis:Lower abdominal pain [R10.30] Other Visit Diagnoses:Diarrhea, unspecified type [R19.7] Neck pain [M54.2] Order(s):UA DIP B/O [[id number]] Order #: [id number] THYROID/PARATHYROID [[id number]] Order #: [id number] FUTURE CBC + DIFF [SQCBCDIF] Order #: [id number] FUTURE COMP METABOLIC PANEL [SQCMP] Order #: [id number] FUTURE TSH BLD [SQTSH] Order #: [id number] FUTURE Prescriptions as of 06/23/2018 Sig: CETIRIZINE 10 MG TABLET Take 1 tablet by mouth once d* Problem List As Of Date 06/23/2018 Noted Resolved Supervision of normal first [Z34.00] INVALID FOR*06/23/2018 Pain in thoracic spine [M54.6] INVALID FOR*06/23/2018 Pain in joint, lower leg [M25.569] INVALID FOR*06/23/2018 Patellar dislocation [S83.006A] INVALID FOR*06/23/2018 Chronic lymphocytic thyroiditis [E06.3] INVALID FOR* Letter Text [facility] Leela Singh CNP [address], [place] [address] 06/23/2018 TO WHOM IT MAY CONCERN: This is to confirm that Catrachita Landers had an appointment and was seen at the [facility] in the Department of Family Medicine by Leela Singh CNP on 06/23/2018. Sincerely yours, Leela Singh CNP Letter Text [facility] Department of Family Medicine Leela Singh CNP [address], [place] [address] 06/23/2018 TO WHOM IT MAY CONCERN: This is to confirm that Catrachita Landers had an appointment and was seen at the [facility] in the Department of Family Medicine by Leela Singh CNP on 06/23/2018 in regards to her thyroid. Sincerely yours, Leela Singh CNP Encounter Status:Closed by LEELA SINGH CNP on 06/23/18 CT/NG [facility] BY PCR Collected: 05/16/2018 Status: F Source: MACY 8:30 AM [facility] REPOSITORY TYPE CODE TESTS RESULT OUT OF RANGE REFERENCE UNITS LAB L8200.2100 Negative Normal Chlam Negative Trac PCR LAB L8200.2200 Negative Normal NG by Negative PCR Performed By: #### L8200.2000 #### [facility] [address] [place], [address] PROGRESS Observed: 04/18/2018 Status: COMPLETED Source: ETLAN 6:50 AM [facility] REPOSITORY HNO ID: [id number] Author: Luis Fernando Flores Service: (none) Author Type: Physician Type: Progress Notes Filed: 04/18/2018 6:52 AM Note Text: CC: Catrachita Landers is a 32 year old female who presents to the office for weight follow up HPI: ? Obesity, starting weight 195 lbs, tolerated Adipex well in the past, BMI 35, just finished 2nd month of Adipex, tolerating well, previous weight is 189 lbs. Currently weight is 184 lbs. Allergies, itching nose, watery eyes and noses, PND symptoms, asking for options ? PAST MEDICAL HISTORY Diagnosis Date - Left knee pain since childhood - Left thyroid nodule 02/2016 - PMH - PAST MEDICAL HISTORY OF CHILDHOOD SEIZURES; none since age 8 - induced hypertension - Thyromegaly 02/2016 PAST SURGICAL HISTORY Procedure Laterality Date - MIRENA 2010 - REMOVAL OF TONSILS,<11 Y/O 2000 Tonsillectomy Current Outpatient Prescriptions: Phentermine HCl (ADIPEX-P) 37.5 mg tablet Take 1 tablet by mouth once daily for 30 days. BMI 35 cetirizine (ZYRTEC) 10 mg tablet Take 1 tablet by mouth once daily. No current facility-administered medications for this visit. 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 PT COUNSELED BIKE HELMET No SEAT BELT No SELF EXAMS Yes Comment:DOESNT DO SBE. PT COUNSELED Social History Narrative 2 sons, ages 5 and 7 ([facility] 12/2014) ROS: See HPI PE: BP 116/70 Pulse 88 Temp (Src) 98.5 (Left Tympanic) Resp 16 Wt 184 lb (83.5kg) Gen: AANDOX3, NAD, non-toxic appearing HEENT: PERRLA, EOMs intact b/l, nares with clear drainage, pharynx without erythema, exudate, lesions, or drainage. Posterior cobblestoning, MMM, Uvula midline. Neck: No LAD, no thyromegaly, no meningismus. CV: RRR, no murmur Lungs: CTA b/l, no wheezing Skin: No rashes, lesions, or wounds on exposed skin. ASSESSMENT/PLAN: 1. Seasonal allergic rhinitis due to pollen - ICD9: 477.0, ICD10: J30.1 (primary diagnosis) - rx as below, use of nasal saline mist as well, avoid allergens as able - CETIRIZINE 10 MG TABLET 2. Obesity, Class II, BMI 35-39.9 - ICD9: 278.00, ICD10: E66.9 - 3rd month rx refilled, overall doing well - PHENTERMINE 37.5 MG TABLET Luis Fernando Flores DO Return if no improvement. Follow up with Luis Fernando Flores DO. Discussed risks, benefits, alternatives, and potential side effects of medications. Patient/Guardian expressed understanding and agreed with the plan. See patient instructions. Luis Fernando Flores DO [address] [place] [address] CNOV Observed: 04/15/2018 Status: COMPLETED Source: [place] 11:20 AM [facility] REPOSITORY Office Visit (FAMPWS) CATRACHITA LANDERS ([id number]) 1985 F Date Time Provider Department 04/15/18 11:20 AM [facility] During your visit today, we recorded the following information about you: Temperature Pulse Respiration Blood pressure 98.5 degrees 88/minute 16/minute 116/70 Weight 83.5 kg Luis Fernando Flores DO 04/18/2018 6:52 AM Signed CC: Catrachita Landers is a 32 year old female who presents to the office for weight follow up HPI: ? Obesity, starting weight 195 lbs, tolerated Adipex well in the past, BMI 35, just finished 2nd month of Adipex, tolerating well, previous weight is 189 lbs. Currently weight is 184 lbs. Allergies, itching nose, watery eyes and noses, PND symptoms, asking for options ? PAST MEDICAL HISTORY Diagnosis Date - Left knee pain since childhood - Left thyroid nodule 02/2016 - PMH - PAST MEDICAL HISTORY OF CHILDHOOD SEIZURES; none since age 8 - induced hypertension - Thyromegaly 02/2016 PAST SURGICAL HISTORY Procedure Laterality Date - MIRENA 2010 - REMOVAL OF TONSILS,<12 Y/O 2000 Tonsillectomy Current Outpatient Prescriptions: Phentermine HCl (ADIPEX-P) 37.5 mg tablet Take 1 tablet by mouth once daily for 30 days. BMI 35 cetirizine (ZYRTEC) 10 mg tablet Take 1 tablet by mouth once daily. No current facility-administered medications for this visit. 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 PT COUNSELED BIKE HELMET No SEAT BELT No SELF EXAMS Yes Comment:DOESNT DO SBE. PT COUNSELED Social History Narrative 2 sons, ages 5 and 7 ([facility] 12/2014) ROS: See HPI PE: BP 116/70 Pulse 88 Temp (Src) 98.5 (Left Tympanic) Resp 16 Wt 184 lb (83.5kg) Gen: AANDOX3, NAD, non-toxic appearing HEENT: PERRLA, EOMs intact b/l, nares with clear drainage, pharynx without erythema, exudate, lesions, or drainage. Posterior cobblestoning, MMM, Uvula midline. Neck: No LAD, no thyromegaly, no meningismus. CV: RRR, no murmur Lungs: CTA b/l, no wheezing Skin: No rashes, lesions, or wounds on exposed skin. ASSESSMENT/PLAN: 1. Seasonal allergic rhinitis due to pollen - ICD9: 477.0, ICD10: J30.1 (primary diagnosis) - rx as below, use of nasal saline mist as well, avoid allergens as able - CETIRIZINE 10 MG TABLET 2. Obesity, Class II, BMI 35-39.9 - ICD9: 278.00, ICD10: E66.9 - 3rd month rx refilled, overall doing well - PHENTERMINE 37.5 MG TABLET Luis Fernando Flores DO Return if no improvement. Follow up with Luis Fernando Flores DO. Discussed risks, benefits, alternatives, and potential side effects of medications. Patient/Guardian expressed understanding and agreed with the plan. See patient instructions. Luis Fernando Flores DO [address] [place] [address] Referring Provider: LUIS FERNANDO FLORES [[id number]] Allergies As of Date: 04/15/2018 Noted Allergy Reaction AMOXICILLIN 12/07/2010 16 - Unknown Date Reviewed: 04/15/2018 Reviewed by: Bonnie Webb LPN - Fully Assessed Reason for Visit: Weight Check [196] Cmt: Last weight 189lbs Primary Visit Diagnosis:Seasonal allergic rhinitis due to pollen [J30.1] Other Visit Diagnosis:Obesity, Class II, BMI 35-39.9 [E66.9] Order(s):Phentermine HCl (ADIPEX-P) 37.5 mg tabletTake 1 tablet by mouth once daily for 30 days. BMI 35Disp: 30 tabletRfl: 0 cetirizine (ZYRTEC) 10 mg tabletTake 1 tablet by mouth once daily.Disp: 30 tabletRfl: 11 Prescriptions as of 04/15/2018 Sig: PHENTERMINE 37.5 MG TABLET Take 1 tablet by mouth once d* CETIRIZINE 10 MG TABLET Take 1 tablet by mouth once d* Problem List As Of Date 04/15/2018 Noted Resolved SUPERVIS NORMAL 1ST PREG [Z34.00] INVALID FOR* Pain in thoracic spine [M54.6] INVALID FOR* Pain in joint, lower leg [M25.569] INVALID FOR* Patellar dislocation [S83.006A] INVALID FOR* Chronic lymphocytic thyroiditis [E06.3] INVALID FOR* Prescriptions ordered this encounter Disp Refills Start End PHENTERMINE 37.5 MG TABLET 30 t* 0 04/15/2018 05/15/2018 Class: Print RX Route: ORAL Sig: Take 1 tablet by mouth once daily for 30 days. BMI 35 CETIRIZINE 10 MG TABLET 30 t* 11 04/15/2018 Route: ORAL Sig: Take 1 tablet by mouth once daily. Medications Discontinued During This Encounter Phentermine HCl (ADIPEX-P) 37.5 mg t* 30 t* 0 03/22/2018 04/15/2018 Class: Print RX Route: ORAL Sig: Take 1 tablet by mouth once daily for 30 days. BMI 35 Disc: Reason for discontinue is not on file. Encounter Status:Closed by LUIS FERNANDO FLORES DO on 04/18/18 PROGRESS Observed: 03/22/2018 Status: COMPLETED Source: [facility] 7:47 PM [facility] HNO ID: [id number] Author: Luis Fernando Flores Service: (none) Author Type: Physician Type: Progress Notes Filed: 03/22/2018 7:55 PM Note Text: CC:Catrachita Landers is a 32 year old female who presents to the office for weight follow up HPI: Obesity, starting weight 195 lbs, tolerated Adipex well in the past, BMI 35, just finished 1st month of Adipex, tolerating well, weight is 189 lbs. PAST MEDICAL HISTORY Diagnosis Date - Left knee pain since childhood - Left thyroid nodule 02/2016 - PMH - PAST MEDICAL HISTORY OF CHILDHOOD SEIZURES; none since age 8 - induced hypertension - Thyromegaly 02/2016 PAST SURGICAL HISTORY Procedure Laterality Date - MIRENA 2010 - REMOVAL OF TONSILS,<11 Y/O 2000 Tonsillectomy Current Outpatient Prescriptions: Phentermine HCl (ADIPEX-P) 37.5 mg tablet Take 1 tablet by mouth once daily for 30 days. BMI 35 No current facility-administered medications for this visit. 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 PT COUNSELED BIKE HELMET No SEAT BELT No SELF EXAMS Yes Comment:DOESNT DO SBE. PT COUNSELED Social History Narrative 2 sons, ages 5 and 7 ([facility] 12/2014) ROS: See HPI PE: BP 120/80 Pulse 88 Temp (Src) 97.5 (Left Tympanic) Resp 16 Wt 189 lb (85.7kg) Gen: AANDOX3, NAD, non-toxic appearing HEENT: PERRLA, EOMs intact b/l, nares without drainage, pharynx without erythema, exudate, lesions, or drainage. Uvula midline. Neck: No LAD, no thyromegaly, no meningismus. CV: RRR, no murmur Lungs: CTA b/l, no wheezing Skin: No rashes, lesions, or wounds on exposed skin. ASSESSMENT/PLAN: 1. Obesity, Class II, BMI 35-39.9 - ICD9: 278.00, ICD10: E66.9 - 2nd month rx refilled, doing well. - PHENTERMINE 37.5 MG TABLET Luis Fernando Flores DO Return if no improvement. Follow up with Luis Fernando Flores. Discussed risks, benefits, alternatives, and potential side effects of medications. Patient/Guardian expressed understanding and agreed with the plan. See patient instructions. Luis Fernando Flores DO [address] [place] [address] CNOV Observed: 03/22/2018 Status: COMPLETED Source: [place] 7:00 PM [facility] REPOSITORY Office Visit (FAMPWS) CATRACHITA LANDERS ([id number]) 1985 F Date Time Provider Department 03/22/18 7:00 PM [facility] During your visit today, we recorded the following information about you: Temperature Pulse Respiration Blood pressure 97.5 degrees 88/minute 16/minute 120/80 Weight 85.7 kg Luis Fernando Flores DO 03/22/2018 7:55 PM Signed CC:Catrachitatra Landers is a 32 year old female who presents to the office for weight follow up HPI: Obesity, starting weight 195 lbs, tolerated Adipex well in the past, BMI 35, just finished 1st month of Adipex, tolerating well, weight is 189 lbs. PAST MEDICAL HISTORY Diagnosis Date - Left knee pain since childhood - Left thyroid nodule 02/2016 - PMH - PAST MEDICAL HISTORY OF CHILDHOOD SEIZURES; none since age 8 - induced hypertension - Thyromegaly 02/2016 PAST SURGICAL HISTORY Procedure Laterality Date - MIRENA 2010 - REMOVAL OF TONSILS,<12 Y/O 2000 Tonsillectomy Current Outpatient Prescriptions: Phentermine HCl (ADIPEX-P) 37.5 mg tablet Take 1 tablet by mouth once daily for 30 days. BMI 35 No current facility-administered medications for this visit. 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 PT COUNSELED BIKE HELMET No SEAT BELT No SELF EXAMS Yes Comment:DOESNT DO SBE. PT COUNSELED Social History Narrative 2 sons, ages 5 and 7 ([facility] 12/2014) ROS: See HPI PE: BP 120/80 Pulse 88 Temp (Src) 97.5 (Left Tympanic) Resp 16 Wt 189 lb (85.7kg) Gen: AANDOX3, NAD, non-toxic appearing HEENT: PERRLA, EOMs intact b/l, nares without drainage, pharynx without erythema, exudate, lesions, or drainage. Uvula midline. Neck: No LAD, no thyromegaly, no meningismus. CV: RRR, no murmur Lungs: CTA b/l, no wheezing Skin: No rashes, lesions, or wounds on exposed skin. ASSESSMENT/PLAN: 1. Obesity, Class II, BMI 35-39.9 - ICD9: 278.00, ICD10: E66.9 - 2nd month rx refilled, doing well. - PHENTERMINE 37.5 MG TABLET Luis Fernando Flores DO Return if no improvement. Follow up with Luis Fernando Flores. Discussed risks, benefits, alternatives, and potential side effects of medications. Patient/Guardian expressed understanding and agreed with the plan. See patient instructions. Luis Fernando Flores DO [address] [place] [address] Referring Provider: SELF [[id number]] Allergies As of Date: 03/22/2018 Noted Allergy Reaction AMOXICILLIN 12/07/2010 16 - Unknown Date Reviewed: 03/22/2018 Reviewed by: Bonnie Webb LPN - Fully Assessed Reason for Visit: Follow Up [171] Cmt: last weight 195 Reason For Visit History Recorded Visit Diagnosis:Obesity, Class II, BMI 35-39.9 [E66.9] Order(s):Phentermine HCl (ADIPEX-P) 37.5 mg tabletTake 1 tablet by mouth once daily for 30 days. BMI 35Disp: 30 tabletRfl: 0 Prescriptions as of 03/22/2018 Sig: PHENTERMINE 37.5 MG TABLET Take 1 tablet by mouth once d* Problem List As Of Date 03/22/2018 Noted Resolved SUPERVIS NORMAL 1ST PREG [Z34.00] INVALID FOR* Pain in thoracic spine [M54.6] INVALID FOR* Pain in joint, lower leg [M25.569] INVALID FOR* Patellar dislocation [S83.006A] INVALID FOR* Chronic lymphocytic thyroiditis [E06.3] INVALID FOR* Prescriptions ordered this encounter Disp Refills Start End PHENTERMINE 37.5 MG TABLET 30 t* 0 03/22/2018 04/21/2018 Class: Print RX Route: ORAL Sig: Take 1 tablet by mouth once daily for 30 days. BMI 35 Medications Discontinued During This Encounter Phentermine HCl (ADIPEX-P) 37.5 mg t* 30 t* 0 02/22/2018 03/22/2018 Class: Print RX Route: ORAL Sig: Take 1 tablet by mouth once daily for 30 days. BMI 35 Disc: Reason for discontinue is not on file. Encounter Status:Closed by LUIS FERNANDO FLORES DO on 03/22/18 PROGRESS Observed: 03/16/2018 Status: COMPLETED Source: [place] 4:14 [facility] REPOSITORY HNO ID: [id number] Author: Bunny Brown Service: (none) Author Type: Awning Maker And Installer Type: Progress Notes Filed: 03/16/2018 4:15 PM Note Text: Radiology Service Progress Note PATIENT NAME: Catrachita Landers DATE OF SERVICE: March 16, 2018 TIME: 4:14 PM PATIENT IDENTITY VERIFICATION COMPLETED USING TWO (2) METHODS: Patient confirmed name verbally and Date of . PATIENT GENDER DATA: Female. status: : No status: N/A PATIENT RELEVANT IMPLANT DATA REVIEWED: Not Applicable RADIOLOGY DEPARTMENT: Ultrasound PERIPHERAL IV DATA: Not applicable SIGNED BY: BUNNY BROWN RDMS RVT March 16, 2018 4:14 PM US THYROID/PARATHYROID Observed: 03/16/2018 Status: F Source: [facility] 4:14 PM [facility] REPOSITORY * * *Final Report* * * DATE OF EXAM: Mar 16 2018 4:14PM [facility] 1048 - US THYROID/PARATHYROID / PROCEDURE REASON: Nontoxic multinodular goiter * * * * Physician Interpretation * * * * US THYROID/PARATHYROID EXAM DATE/TIME: 03/16/2018 4:14 PM CLINICAL HISTORY: Follow up thyroid nodules. COMPARISON: Ultrasound thyroid on 05/19/2017 TECHNIQUE: Sonography and Doppler imaging of the thyroid was performed. Images were obtained and stored in a permanent archive. FINDINGS: RIGHT LOBE: Size: 4.3 x 1.7 x 1.3 cm Echotexture: Heterogeneous Nodules: No discrete nodules identified. The calcifications seen on prior study appear as ligaments going through the thyroid. LEFT LOBE: Size: 4.3 x 1.7 x 1.6 cm Echotexture: Heterogeneous Nodules: There is a heterogeneous slightly hypoechoic nodule in the mid to inferior thyroid measuring 1.3 x 1.3 x 0.7 cm, previously 1.4 x 1.1 x 0.8 cm. ISTHMUS: AP diameter: 5 mm Nodules: A 7 x 4 x 2 mm hypoechoic/sonolucent nodule identified in the right isthmus, not previously identified. IMPRESSION: Stable left thyroid nodule with new nodule in the right isthmus. Ground Service Equipment Mechanic: [facility] Transcribe Date/Time: Mar 20 2018 9:59A Dictated by : ANGEL LAZARO MD This examination was interpreted and the report reviewed and electronically signed by: ANGEL LAZARO MD on Mar 20 2018 10:16AM EST [id number] HEMOGLOBIN A1C Collected: 02/27/2018 Status: F Source: [place] 4:30 PM [facility] REPOSITORY TYPE CODE TESTS RESULT OUT OF REFERENCE UNITS RANGE LAB HGBA1C 4.3-5.6 % Hemoglobin A1c 5.1 LAB HBA0 mg/dL Est. Average Glucose 100 Result Comment: eAG: (Estimated average glucose) is a calculated value from HgbA1c and is small business sales representative of the average blood glucose level in the last 2-3 month period. Performed By: #### HBA1C #### [facility] [address] [place], [place] [address] FREE T4 Collected: 02/27/2018 Status: F Source: [place] 4:29 PM [facility] REPOSITORY TYPE CODE TESTS RESULT OUT OF RANGE REFERENCE UNITS LAB FT4 0.9-1.7 ng/dL Free T4 1.4 Performed By: #### FT4, T3, TSH, MICRO #### [facility] [address] [place], [place] [address] T3 Collected: 02/27/2018 Status: F Source: [facility] 4:29 PM [facility] [place] REPOSITORY TYPE CODE TESTS RESULT OUT OF RANGE REFERENCE UNITS LAB T3 79-165 ng/dL T3 122 Performed By: #### FT4, T3, TSH, MICRO #### [facility] [address] [place], [place] [address] TSH Collected: 02/27/2018 Status: F Source: [place] 4:29 PM [facility] REPOSITORY TYPE CODE TESTS RESULT OUT OF RANGE REFERENCE UNITS LAB TSH 0.400-5.500 uU/mL TSH 3.660 Result Comment: If the patient is , TSH reference range varies by gestational period: First Trimester 0.100-2.500 uU/mL Second Trimester 0.200-3.000 uU/mL Third Trimester 0.300-3.000 uU/mL References: 1. De Delia L, Pablo M, Domingo EK, et al. Management of Thyroid Dysfunction during and : An Endocrine Society Clinical Practice Guideline. J Clin Endocrinol Metab, 2012:97:9377-2297. 2. Franko CHIU. Overview of thyroid disease in . UpToDate. 2016. Accessed on May 07, 2016. Performed By: #### FT4, T3, TSH, MICRO #### [facility] [address] [place] [id number] TPO ANTIBODY Collected: 02/27/2018 Status: F Source: [place] 4:29 PM [facility] REPOSITORY TYPE CODE TESTS RESULT OUT OF REFERENCE UNITS RANGE LAB MICRO <5.6 IU/mL TPO Antibody <1.0 Performed By: #### FT4, T3, TSH, MICRO #### [facility] [address] [place], [place] [address] PROGRESS Observed: 02/22/2018 Status: COMPLETED Source: [facility] 6:15 PM [facility] HNO ID: [id number] Author: Luis Fernando Flores Service: (none) Author Type: Physician Type: Progress Notes Filed: 02/22/2018 6:21 PM Note Text: CC: Catrachita Landers is a 32 year old female who presents to the office for 6 months follow up HPI: Thyroid goiter, diagnosed 2 years ago, has had an FNA which was benign. Last US in the last 1 year, wondering if growing, sometimes feels a fullness in anterior neck area when swallowing, Last labs wnl Obesity, weight 195 lbs, tolerated Adipex well in the past, BMI 35, asking to restart now PAST MEDICAL HISTORY Diagnosis Date - Left knee pain since childhood - Left thyroid nodule 02/2016 - PMH - PAST MEDICAL HISTORY OF CHILDHOOD SEIZURES; none since age 8 - induced hypertension - Thyromegaly 02/2016 PAST SURGICAL HISTORY Procedure Laterality Date - MIRENA 2010 - REMOVAL OF TONSILS,<11 Y/O 2000 Tonsillectomy Current Outpatient Prescriptions: Phentermine HCl (ADIPEX-P) 37.5 mg tablet Take 1 tablet by mouth once daily for 30 days. BMI 35 No current facility-administered medications for this visit. 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 PT COUNSELED BIKE HELMET No SEAT BELT No SELF EXAMS Yes Comment:DOESNT DO SBE. PT COUNSELED Social History Narrative 2 sons, ages 5 and 7 ([facility] 12/2014) ROS: See HPI PE: BP 110/80 Pulse 80 Temp (Src) 98.9 (Left Tympanic) Resp 16 Wt 195 lb (88.5kg) Gen: AANDOX3, NAD, non-toxic appearing HEENT: PERRLA, EOMs intact b/l, nares without drainage, pharynx without erythema, exudate, lesions, or drainage. Uvula midline. Neck: No LAD, + b/l NT thyromegaly, no meningismus. CV: RRR, no murmur Lungs: CTA b/l, no wheezing Skin: No rashes, lesions, or wounds on exposed skin. ASSESSMENT/PLAN: 1. Multinodular goiter - ICD9: 241.1, ICD10: E04.2 (primary diagnosis) - recheck thyroid US and labs - TSH BLD - T4 FREE/FREE THYROX - T3 BLD - THYROID PEROXIDASE ANTIBODY BLOOD - US THYROID/PARATHYROID 2. Obesity, Class II, BMI 35-39.9 - ICD9: 278.00, ICD10: E66.9 - Lengthy discussion in office today regarding diet and exercise. Discussed use of small plate to eat meals from, drink 1 glass of water 10-15 minutes prior to eating meal, drink 8 glasses of water daily, eat fresh fruit and vegetable during meal first then lean protein such as grilled/baked chicken breast or fish, limit carbohydrate intake (less pasta, breads, rice and snack foods) as well as limiting sugars (desserts etc). Important to count / track your calories and exercise as well. - 1st month medication refilled. - PHENTERMINE 37.5 MG TABLET Luis Fernando Flores DO Return if no improvement. Follow up with Luis Fernando Flores DO. Discussed risks, benefits, alternatives, and potential side effects of medications. Patient/Guardian expressed understanding and agreed with the plan. See patient instructions. Luis Fernando Flores DO [address] [place] [address] CNOV Observed: 02/22/2018 Status: COMPLETED Source: [place] 5:40 PM [facility] REPOSITORY Office Visit (FAMPWS) CATRACHITA LANDERS ([id number]) 1985 F Date Time Provider Department 02/22/18 5:40 PM FLORESLUIS FERNANDO DENIS During your visit today, we recorded the following information about you: Temperature Pulse Respiration Blood pressure 98.9 degrees 80/minute 16/minute 110/80 Weight 88.5 kg Luis Fernando Flores DO 02/22/2018 6:21 PM Signed CC: Catrachita Landers is a 32 year old female who presents to the office for 6 months follow up HPI: Thyroid goiter, diagnosed 2 years ago, has had an FNA which was benign. Last US in the last 1 year, wondering if growing, sometimes feels a fullness in anterior neck area when swallowing, Last labs wnl Obesity, weight 195 lbs, tolerated Adipex well in the past, BMI 35, asking to restart now PAST MEDICAL HISTORY Diagnosis Date - Left knee pain since childhood - Left thyroid nodule 02/2016 - PMH - PAST MEDICAL HISTORY OF CHILDHOOD SEIZURES; none since age 8 - induced hypertension - Thyromegaly 02/2016 PAST SURGICAL HISTORY Procedure Laterality Date - MIRENA 2010 - REMOVAL OF TONSILS,ANDlt;11 Y/O 2000 Tonsillectomy Current Outpatient Prescriptions: Phentermine HCl (ADIPEX-P) 37.5 mg tablet Take 1 tablet by mouth once daily for 30 days. BMI 35 No current facility-administered medications for this visit. 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 PT COUNSELED BIKE HELMET No SEAT BELT No SELF EXAMS Yes Comment:DOESNT DO SBE. PT COUNSELED Social History Narrative 2 sons, ages 5 and 7 ([facility] 12/2014) ROS: See HPI PE: BP 110/80 Pulse 80 Temp (Src) 98.9 (Left Tympanic) Resp 16 Wt 195 lb (88.5kg) Gen: AANDamp;OX3, NAD, non-toxic appearing HEENT: PERRLA, EOMs intact b/l, nares without drainage, pharynx without erythema, exudate, lesions, or drainage. Uvula midline. Neck: No LAD, + b/l NT thyromegaly, no meningismus. CV: RRR, no murmur Lungs: CTA b/l, no wheezing Skin: No rashes, lesions, or wounds on exposed skin. ASSESSMENT/PLAN: 1. Multinodular goiter - ICD9: 241.1, ICD10: E04.2 (primary diagnosis) - recheck thyroid US and labs - TSH BLD - T4 FREE/FREE THYROX - T3 BLD - THYROID PEROXIDASE ANTIBODY BLOOD - US THYROID/PARATHYROID 2. Obesity, Class II, BMI 35-39.9 - ICD9: 278.00, ICD10: E66.9 - Lengthy discussion in office today regarding diet and exercise. Discussed use of small plate to eat meals from, drink 1 glass of water 10- 15 minutes prior to eating meal, drink 8 glasses of water daily, eat fresh fruit and vegetable during meal first then lean protein such as grilled/baked chicken breast or fish, limit carbohydrate intake (less pasta, breads, rice and snack foods) as well as limiting sugars (desserts etc). Important to count / track your calories and exercise as well. - 1st month medication refilled. - PHENTERMINE 37.5 MG TABLET Luis Fernando Flores DO Return if no improvement. Follow up with Luis Fernando Flores DO. Discussed risks, benefits, alternatives, and potential side effects of medications. Patient/Guardian expressed understanding and agreed with the plan. See patient instructions. Luis Fernando Flores DO [address] [place] [address] Referring Provider: SELF [200] Allergies As of Date: 02/22/2018 Noted Allergy Reaction AMOXICILLIN 12/07/2010 16 - Unknown Date Reviewed: 02/22/2018 Reviewed by: Bonnie Webb LPN - Fully Assessed Reason for Visit: Follow Up [171] Cmt: thyroid Primary Visit Diagnosis:Multinodular goiter [E04.2] Other Visit Diagnosis:Obesity, Class II, BMI 35-39.9 [E66.9] Order(s):TSH BLD [SQTSH] Order #: [id number] FUTURE T4 FREE/FREE THYROX [SQFT4] Order #: [id number] FUTURE T3 BLD [SQT3] Order #: [id number] FUTURE THYROID PEROXIDASE ANTIBODY BLOOD [SQMICRO] Order #: [id number] FUTURE US THYROID/PARATHYROID [2045702] Order #: [id number] FUTURE Phentermine HCl (ADIPEX-P) 37.5 mg tabletTake 1 tablet by mouth once daily for 30 days. BMI 35Disp: 30 tabletRfl: 0 Prescriptions as of 02/22/2018 Sig: PHENTERMINE 37.5 MG TABLET Take 1 tablet by mouth once d* Problem List As Of Date 02/22/2018 Noted Resolved SUPERVIS NORMAL 1ST PREG [Z34.00] INVALID FOR* Pain in thoracic spine [M54.6] INVALID FOR* Pain in joint, lower leg [M25.569] INVALID FOR* Patellar dislocation [S83.006A] INVALID FOR* Chronic lymphocytic thyroiditis [E06.3] INVALID FOR* Prescriptions ordered this encounter Disp Refills Start End PHENTERMINE 37.5 MG TABLET 30 t* 0 02/22/2018 03/24/2018 Class: Print RX Route: ORAL Sig: Take 1 tablet by mouth once daily for 30 days. BMI 35 Medications Discontinued During This Encounter doxycycline monohydrate (MONODOX) 10* 10 c* 0 10/24/2017 02/22/2018 Route: ORAL Sig: Take 1 capsule by mouth twice daily. Disc: Reason for discontinue is not on file. fluticasone (FLONASE) 50 mcg/actuati* 1 Yusuf* 11 10/24/2017 02/22/2018 Route: EACH NOSTRIL Sig: Use 2 Sprays in each nostril once daily. Disc: Reason for discontinue is not on file. benzonatate (TESSALON PERLES) 100 mg* 15 c* 0 10/24/2017 02/22/2018 Route: ORAL Sig: Take 1 capsule by mouth three times daily as needed for Cough. Disc: Reason for discontinue is not on file. Phentermine HCl (ADIPEX-P) 37.5 mg t* 30 t* 0 08/10/2017 02/22/2018 Class: Print RX Route: ORAL Sig: Take 1 tablet by mouth once daily. .Body mass index is 36.4 kg/(m2). May fill on or after 08/10/2017 Disc: Reason for discontinue is not on file. diazePAM (VALIUM) 5 mg tablet 2 ta* 0 05/30/2017 02/22/2018 Class: Print RX Route: ORAL Sig: Take 1 tablet by mouth every 6 hours as needed (take two tablets about an hour prior to procedure). Disc: Reason for discontinue is not on file. Encounter Status:Closed by LUIS FERNANDO FLORES DO on 02/22/18 Observed: 02/10/2018 Status: F Source: MACY CULTURE, URINE 4:00 PM [facility] REPOSITORY Urine Culture ORGANISM 1: Mixed Gram Positive Organisms [place]we Count 25,000-50,000 MIX CULTURE Mixed contaminants. Submit a new specimen if indicated. Performed By: #### M100.0650 #### [facility] [address] [place], [address] ALLERGIES ALLERGIES DATE TYPE / CODE NAME / CODE REACTION SEVERITY SOURCE 12/05/2013 Drug amoxicillin/Q24927 Hives Unknown Blunt Allergy/416 3675(RXNORM) Community 265360([facility] ED CT) Repository 12/07/2010 DRUG AMOXICILLIN UNKNOWN [facility] INGREDI/[address] [place] [id number]([facility] ED CT) ENCOUNTERS ENCOUNTERS ADMIT/DISCHARGE ACCOUNT ADMITTING ENCOUNTER LOCATION SOURCE NUMBER CLASS 10/20/[id number] [facility] ing:WOBLAB Repository 09/25/2018/09/26/[id number] Repository 08/29/[id number] [facility] ing:LABSPEC Repository 07/10/2018/07/12/[id number] Repository 06/23/2018/06/27/[id number] Repository 06/23/2018/06/23/[id number] Repository 06/23/2018/06/26/[id number] Repository 05/16/[id number] [facility] ing:LABSPEC Repository 04/15/2018/04/18/[id number] Repository 03/22/2018/03/23/20 [id number] Ambulatory [address] Repository 03/16/2018/03/16/20 [id number] Ambulatory [address] Repository 02/27/2018/02/28/20 [id number] Ambulatory [address] Repository 02/22/2018/02/24/20 [id number] Ambulatory [address] Repository 02/10/2018 [id number] [facility] Rep[facility] PAYERS PAYERS ENCOUNTER GUARANTOR PAYER SUBSCRIBER SOURCE 10/20/2018 CATRACHITA A Primary CATRACHITA A Blunt [id number] Insurance:CARESOURCEP ADAMSDOB: [facility] Number: [id number] Hospital [address]99[address]Gzg: [phone] [id number] Repository [phone] () Date:2018-10-20[address]ATTN: [place] [address]LW: 10/20/2018 Secondary NOT GIVENUNK Shaina Insurance:SELF PAY [facility] Number: Effective Repository Date:2018-10-20 08/29/2018 CATRACHITA A Primary CATRACHITA A Blunt [id number] Insurance:CARESOURCEP ADAMSDOB: [facility] Number: [id number] Hospital [address]Buo: [phone] [id number] Repository [phone] () Date:2018-08-29 [address]ATTN: [place] [address]VJ: 08/29/2018 Secondary NOT GIVENUNK Blunt Insurance:SELF PAY [facility] Number: Effective Repository Date:2018-08-29 05/16/2018 CATRACHITA A Primary CATRACHITA A Blunt [id number] Insurance:CARESOURCEP ADAMSDOB: [facility] Number: [id number] Hospital [address]Jlm: [phone] [id number] Repository [phone] () Date:2018-05-16[address]ATTN: [place] [address]OL: 05/16/2018 Secondary NOT GIVENUNK Blunt Insurance:SELF PAY [facility] Number: Effective Repository Date:2018-05-16 02/10/2018 Catrachita A Primary Catrachita A Blunt [id number] Insurance:[facility] AnshulB: [facility] Number: [id number] Hospital [address]Mju: [phone] [id number] Repository [phone] () Date:2018-02-10[address]ATTN: [place] [address]ER: 02/10/2018 Secondary NOT GIVENUNK Shaina Insurance:SELF PAY [facility] Number: Effective Repository Date:2018-02-10
== END ==
PROVIDERS: Visit Provider Obstetrics & Gynecology
DX: Z11.3 Encounter for screening for infections with a predominantly sexual mode of transmission (principal); Z12.4 Encounter for screening for malignant neoplasm of cervix
CPT/HCPCS: 36415; 86703; 87624; 88175; G0145

== ENCOUNTER → 2018-11-17 16:26 | Outpatient (CLI) | payer MEDICAID, SELFPAY ==
[2018-11-17 22:29] LABS: Chlamydia Trachomatis by PCR Negative (Negative); Neisserai gonorrhoeae by PCR Negative (Negative); Probe Check PASS; Sample Adequacy Control PASS; Specimen Processing Control PASS
== END ==
PROVIDERS: Visit Provider Obstetrics & Gynecology
DX: Z11.3 Encounter for screening for infections with a predominantly sexual mode of transmission (principal)
CPT/HCPCS: 87491; 87591

== ENCOUNTER → 2019-06-12 14:25 | Outpatient (CLI) | payer MEDICAID, SELFPAY ==
[2019-06-12 18:50] LABS: Chlamydia Trachomatis by PCR Negative (Negative); Neisserai gonorrhoeae by PCR Negative (Negative); Probe Check PASS; Sample Adequacy Control PASS; Specimen Processing Control PASS; Trichomonas Vag DNA by PCR Negative (Negative)
== END ==
PROVIDERS: Visit Provider Obstetrics & Gynecology
DX: Z11.3 Encounter for screening for infections with a predominantly sexual mode of transmission (principal)
CPT/HCPCS: 87491; 87591; 87661

== ENCOUNTER → 2019-08-28 17:18 | Outpatient (CLI) | payer MEDICAID, SELFPAY | PROVIDERS: Visit Provider Obstetrics & Gynecology | DX: N39.0 Urinary tract infection, site not specified (principal) | CPT/HCPCS: 87086; 87088 ==

== ENCOUNTER → 2019-09-12 17:48 | Outpatient (CLI) | payer MEDICAID, SELFPAY ==
[2019-09-12 21:28] LABS: Chlamydia Trachomatis by PCR Negative (Negative); Neisserai gonorrhoeae by PCR Negative (Negative); Probe Check PASS; Sample Adequacy Control PASS; Specimen Processing Control PASS
== END ==
PROVIDERS: Referring Provider Obstetrics & Gynecology; Visit Provider Obstetrics & Gynecology
DX: Z11.3 Encounter for screening for infections with a predominantly sexual mode of transmission (principal)
CPT/HCPCS: 87491; 87591

== ENCOUNTER → 2019-10-10 10:19 | Outpatient (CLI) | payer MEDICAID, SELFPAY ==
--- NOTE | 2019-10-10 10:30 | MRI_ITS ---
STUDY: MRI RIGHT MIDFOOT REASON FOR EXAM: Right lateral foot pain. TECHNIQUE: Standardized fat and water weighted pulse sequences were obtained in all 3 orthogonal planes. COMPARISON: None. FINDINGS: Normal talonavicular articulation. Normal calcaneocuboid articulation. Normal navicular-cuneiform articulations. Normal intercuneiform articulations. Normal first tarsometatarsal articulation. Normal Lisfranc ligament. Normal second and third tarsometatarsal articulations. Normal cuboid fourth and cuboid fifth tarsometatarsal articulation. Normal first through fifth metatarsi. Normal tibialis anterior tendon. Normal extensor hallucis longus tendon. Normal extensor digitorum longus tendons. Normal peroneus longus tendon and distal insertion. There is a very small volume of fluid in the peroneus brevis tendon sheath at the level of the anterior calcaneus (T2 series 5 images 26, 27). The peroneus brevis tendon is morphologically normal. There is a small volume of fluid in the flexor hallucis longus tendon sheath distal to the sustentaculum rasta (T2 series 5 image 25). Normal intrinsic muscles of the mid and forefoot region. Normal extensor digitorum brevis muscle. Normal visualized plantar fascia. Normal subcutis adipose space. MRI/Lower Ext/No Jt/w/o IMPRESSION: Very mild peroneus brevis tenosynovitis. Small volume of fluid in the flexor hallucis longus tendon sheath. Otherwise, unremarkable MRI of the right midfoot. Electronically Signed: Hong Barraza MD at 12:21 EST Tel , Service support ,
== END ==
PROVIDERS: Family Provider Student in an Organized Health Care Education/Training Program; PCP Student in an Organized Health Care Education/Training Program; Referring Provider Podiatrist; Visit Provider Podiatrist
DX: M19.271 Secondary osteoarthritis, right ankle and foot (principal); M76.71 Peroneal tendinitis, right leg; M79.671 Pain in right foot
CPT/HCPCS: 73718

== ENCOUNTER → 2019-10-22 13:08 | Outpatient (CLI) | payer MEDICAID, SELFPAY | PROVIDERS: Visit Provider Obstetrics & Gynecology | DX: R87.610 Atypical squamous cells of undetermined significance on cytologic smear of cervix (ASC-US) (principal); R87.810 Cervical high risk human papillomavirus (HPV) DNA test positive; Z12.4 Encounter for screening for malignant neoplasm of cervix ==

== ENCOUNTER 2019-12-27 18:00 | Outpatient (RCR) | payer MEDICAID, SELFPAY ==
--- NOTE | 2019-12-06 16:54 | HP.PTEVAL ---
Patient's Visit Information NADEEN HAYES is a 34 year old F referred to Physical Therapy by Lorna Naqvi DPM with a diagnosis of Peroneal Tendonitis and Mid Foot Sprain. Date of Evaluation: 12/06/19 Physical Therapist: Nichole Berry DPT - Visit Plan Frequency: 2x /Week Duration: 4 Weeks Plan: Focus on LE and core strength/stabilization. US as modality of choice - Subjective Findings: Right foot pain for over a year- if she is on it to long it starts to throb and the veins are burning. She has started to work out- and her feet go numb. Insidious onset- MRI and x-rays which were negative. Seeing Dr. Naqvi- band, exercises, no injections or brace. Pain is on the top of the 5th met and in the plantar facia. Worst: 10/10 Agg: standing on it or being on it. Eases: massage Best: 0/10. When she is working and then drives home it feels like she is walking on needles. 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 Has tried insoles but needs to wait until February to get custom. She currently has over the counter. Sleep: not disturbed. Describes as throbbing and burning sensation. Does have knee pain in the right side- comes and goes- that has been longer than the foot pain. Does have low back pain- has had it for a long time. PMHx: none Meds: none - Objective Posture: FH, RS- pt is overweight- can correct posture but is unable to maintain. Gait: no deviation noted. Observation: mild pes planus- rearfoot varus- mild edema around lateral malleolus. HR/TR: able without UE A. SLS: 10 sec then LOB increased pes planus. Palpation: tender along lateral mall, plantar fascia, and along the met heads. ROM: DF: neutral, PF: 40 degrees, Ever: 30 degrees, Inver: 40 degrees. Strength: Core:poor, Hip; 4/5, Knee4+/5, Ankle: 4+/5. Flex: HS: moderate, Gastroc: severe. Soleus: moderate - Goals Goal 1:: Patient will be I with HEP and progression Goal Time Frame: 4-6 Weeks Goal 2:: Patient will demo 10 degrees of DF Goal Time Frame: 4-6 Weeks Goal 3:: Patient will maintain proper posture t/o tx session to demo increased core s/s Goal Time Frame: 4-6 Weeks - Rehabilitation Potential Physical Therapy Diagnosis: Patient presents with hypomobility- she has decreased ROM, strength, flex and muscular endurance leading to poor posture and increasdd pain with ADL's. Rehabilitation Potential: Fair - Anticipated Interventions Patient/Client Instruction: Educate patient on: Benefits of Fitness Program Therapeutic Exercise to Include: Strength training, Endurance training, Balance training, Agility training, Body mechanics, Postural training, Flexibilty training, Gait and locomotor training, Passive ROM, Active ROM, Dynamic Lumbar Stabilization For the Purpose of:: To improve muscle performance and motor function TENS: Yes Cryotherapy (ice pack, ice massage): Yes Thermo therapy (hot pack): Yes Ultrasound (thermal/non thermal): Yes For the Purpose of:: To improve nutrient delivery to tissue Thank you for the opportunity to evaluate your patient. For Medicare and Medicare HMO plans, please review the plan of care and approve it. It will need to be FAXED BACK to us at [phone] for Medicare purposes. For Medicare only, by signing this I certify the plan of care. Please let me know if there are questions or concerns regarding this plan of care. Physician Signature: Date:
--- NOTE | 2020-04-01 10:26 | HP.PT.NRP ---
NADEEN HAYES was seen in my office for initial evaluation on 12/06/19. The following Plan of Care was established for this patient: Initial Frequency: 2x /Week Initial Duration: 4 Weeks Patient/Client Instruction: Educate patient on: Benefits of Fitness Program Therapeutic Exercise to Include: Strength training, Endurance training, Balance training, Agility training, Body mechanics, Postural training, Flexibilty training, Gait and locomotor training, Passive ROM, Active ROM, Dynamic Lumbar Stabilization For the Purpose of:: To improve muscle performance and motor function TENS: Yes Cryotherapy (ice pack, ice massage): Yes Thermo therapy (hot pack): Yes Ultrasound (thermal/non thermal): Yes For the Purpose of:: To improve nutrient delivery to tissue This patient was last seen in our office . Pertinent comments regarding their Physical therapy will appear below: Patient has not attended physical therapy in over 8 weeks- appropriate for d/c and return to MD as appropriate. At this point I will be discontinuing this patient from physical therapy. I would be happy to see this patient again in the future if found appropriate by the physician. Thank you! EDWARD McgrathT
== END 2019-12-27 19:00 | disposition home or self-care (01) ==
LOC: PT 18:00
PROVIDERS: Family Provider Student in an Organized Health Care Education/Training Program; PCP Student in an Organized Health Care Education/Training Program; Referring Provider Podiatrist; Visit Provider Podiatrist
DX: M76.71 Peroneal tendinitis, right leg (principal); M76.72 Peroneal tendinitis, left leg; S93.602D Unspecified sprain of left foot, subsequent encounter; S93.601D Unspecified sprain of right foot, subsequent encounter
CPT/HCPCS: 97035; 97110; 97162

== ENCOUNTER → 2020-04-29 | Outpatient (CLI) | payer MEDICAID, SELFPAY ==
[2020-04-29 17:54] LABS: Color, Urine Yellow (Yellow); Glucose, Dipstick Normal (Normal); Ketone-Dipstick Negative (Negative); Leukocyte Esterase-Dipstick Negative /ul (Negative); Nitrite-Dipstick Negative (Negative); Occult Blood-Urine 25 /ul (Negative); Protein-Dipstick Negative (Negative); Specific Gravity, Urine 1.025 (1.002-1.030); Urine Bilirubin Dipstick Negative (Negative); Urine Clarity Sl. Cloudy (Clear); Urine Urobilinogen Normal (Normal)
[2020-04-29 19:54] LABS: Chlamydia Trachomatis by PCR Negative (Negative); Neisserai gonorrhoeae by PCR Negative (Negative); Probe Check PASS; Sample Adequacy Control PASS; Specimen Processing Control PASS; Trichomonas Vag DNA by PCR Negative (Negative)
== END | disposition home or self-care (01) ==
LOC: LABSPEC 16:08
PROVIDERS: PCP Student in an Organized Health Care Education/Training Program; Visit Provider Obstetrics & Gynecology
DX: N39.0 Urinary tract infection, site not specified (principal); Z11.3 Encounter for screening for infections with a predominantly sexual mode of transmission
CPT/HCPCS: 81002; 87086; 87088; 87491; 87591; 87661

== ENCOUNTER → 2020-07-17 12:59 | Outpatient (CLI) | payer MEDICAID, SELFPAY ==
[2020-07-17 13:19] LABS: Bacteria 0 SEEN /hpf (None Seen); Mucous, Urine 0 SEEN /hpf (<or=2+); Red Blood Cells-Urine 0 SEEN /hpf (0-5); White Blood Cells 0 SEEN /hpf (0-5)
[2020-07-17 13:46] LABS: Color, Urine Straw (Yellow); Glucose, Dipstick Normal (Normal); Ketone-Dipstick Negative (Negative); Leukocyte Esterase-Dipstick Negative /ul (Negative); Nitrite-Dipstick Negative (Negative); Occult Blood-Urine 10 /ul (Negative); Protein-Dipstick Negative (Negative); Urine Bilirubin Dipstick Negative (Negative); Urine Clarity Clear (Clear); Urine Urobilinogen Normal (Normal)
[2020-07-17 13:54] LABS: Squamous Epithelial Cells - UA 0-5 SEEN /hpf (5-10)
== END ==
PROVIDERS: PCP Student in an Organized Health Care Education/Training Program; Visit Provider Student in an Organized Health Care Education/Training Program
DX: R30.0 Dysuria (principal); N76.0 Acute vaginitis
CPT/HCPCS: 81001; 87086; 87088

== ENCOUNTER → 2020-07-29 13:05 | Outpatient (CLI) | payer MEDICAID, SELFPAY ==
[2020-08-01 05:07] LABS: Chlamydia By Nucleic Acid AMP Negative (Negative)
[2020-08-01 15:50] LABS: Gonococcus By Nucleic Acid AMP Negative (Negative)
== END ==
PROVIDERS: PCP Student in an Organized Health Care Education/Training Program; Visit Provider Student in an Organized Health Care Education/Training Program
DX: Z11.3 Encounter for screening for infections with a predominantly sexual mode of transmission (principal); Z30.430 Encounter for insertion of intrauterine contraceptive device
CPT/HCPCS: 87491; 87591

== ENCOUNTER → 2020-10-23 10:41 | Outpatient (CLI) | payer MEDICAID, SELFPAY ==
[2020-10-30 15:00] LABS: HPV APTIMA, High Risk Positive (Negative)
[2020-10-30 15:01] LABS: HPV Reflexed? YES, CHARGE PATIENT
== END ==
PROVIDERS: PCP Student in an Organized Health Care Education/Training Program; Visit Provider Student in an Organized Health Care Education/Training Program
DX: Z12.4 Encounter for screening for malignant neoplasm of cervix (principal)
CPT/HCPCS: 87624; 88175; G0145

== ENCOUNTER → 2020-12-04 15:57 | Outpatient (CLI) | payer MEDICAID, SELFPAY ==
--- NOTE | 2020-12-04 | CER_PTH ---
PATIENT: NADEEN HAYES LOC: [facility] U#:[id number] AGE/SX: 40/F ROOM: RE12/04/[address]: Dr. Bing Wyatt, : 1985 BED: DIS: SPEC #: [id number] RECD: 12/04/20 16:51 STATUS: MENA MATA #: [id number] SANDRA: 12/04/20 00:[address]: Bing Wyatt DEPT: SURGICAL PATHOLOGY RECD BY: Andrea Man ENTERED: 12/05/20 07:24 SP TYPE: CERV OTHR DR: Dr. Luis Fernando Dunlap, Tissues: A - Uterine cervix, NOS B - Endocervical Procedures: Surgery Specimen Level IV HEADER OPERATION: Colposcopy PRE-OP DIAGNOSIS: Negative pap, HPV, HR positive TISSUE SUBMITTED: A - Cervical biopsy 12 o'clock, B - ECC MICROSCOPIC DIAGNOSIS A. Cervix, 12 o'clock, biopsy: A piece of squamous mucosa, negative for dysplasia. See comment. B. ECC: Fragments of benign ecto- and endocervical epithelium and mucosa, negative for dysplasia. NANCY:michael 12/08/2020 COMMENT A. Transitional zone mucosa is not seen. Immunohistochemistry ([id number]) for surrogate HPV marker (p16) supports the above diagnosis. Case has been reviewed in consultation with Dr. Sharpe who concurs with the above diagnosis. IDC:AM MICROSCOPIC DESCRIPTION Slides are reviewed. GROSS DESCRIPTION A - Received in fixative is one container labeled with the patient's name and designated cervical biopsy. The specimen consists of one irregular fragment of light chatman soft tissue that measures 0.5 x 0.4 x 0.1 cm. The specimen is totally submitted in one cassette. B - Received in fixative is one container labeled with the patient's name and designated ECC. The specimen consists of multiple irregular fragments of chatman mucoid tissue that in aggregate measure 2.5 x 2 x 0.1 cm. The specimen is totally submitted in one cassette. / NANCY:michael 12/05/20 TC:4 CPT: 55922 x2
--- NOTE | 2020-12-04 | IMM_PTH ---
PATIENT: NADEEN HAYES LOC: [facility] U#:[id number] AGE/SX: 40/F ROOM: RE12/04/[address]: Dr. Bing Wyatt, : 1985 BED: DIS: SPEC #: [id number] RECD: 12/08/20 12:30 STATUS: MENA REQ #: [id number] SANDRA: 12/04/20 00:[address]: Bing Wyatt DEPT: IMMUNOHISTOCHEMISTRY RECD BY: Jeanne Murphy ENTERED: 12/08/20 12:31 SP TYPE: IMMUNO OTHR DR: Dr. Luis Fernando Dunlap, DO Tissues: A - Uterine cervix, NOS Procedures: p16 (initial) KI-67 (add) PHYSICIAN & INSTITUTION [place] [address] SPECIMEN INFORMATION: Tissue Source: A - Cervix at 12 o'clock, biopsy Clinical Info: Negative pap, HPV-HR positive Specimen Number: [id number] CPT code: 05268, 01441 METHODOLOGY: Deparaffinized sections of prefer/formalin-fixed tissue or PAP/DQ stained slides are incubated with monoclonal/polyclonal antibodies/oligonucleotide probes. Localization is made via biotin free immunoperoxidase method. Appropriate controls are performed and reacted as expected. Results on target cell population are indicated in the following table: RESULTS: ANTIBODY / CLONE RESULT Block A P16 (E6H4) negative Ki-67 (30-9) negative These tests were developed and their performance characteristics determined by [facility]. They may not have been cleared or approved by the U.S. Food and Drug Administration. The FDA has determined that such clearance or approval is not necessary. The above immunohistochemical/dualISH markers are ordered and reviewed by the Pathologist. INTERPRETATION: A. Cervix at 12 o'clock, biopsy: Negative for dysplasia. SJ:michael 12/09/2020
== END ==
PROVIDERS: PCP Student in an Organized Health Care Education/Training Program; Visit Provider Student in an Organized Health Care Education/Training Program
DX: Z04.9 Encounter for examination and observation for unspecified reason (principal)
CPT/HCPCS: 88305; 88341; 88342

== ENCOUNTER → 2021-01-19 13:49 | Outpatient (CLI) | payer MEDICAID, SELFPAY ==
[2021-01-19 15:23] LABS: HIV - WCH Non-Reactive (Nonreactive); Hepatitis B Surface Antibody Non-Reactive; Hepatitis B Surface Antigen Non-Reactive (Nonreactive); Hepatitis C Antibody Non-Reactive (Nonreactive); Syphilis Antibodies Non-reactive
== END ==
PROVIDERS: PCP Student in an Organized Health Care Education/Training Program; Visit Provider Student in an Organized Health Care Education/Training Program
DX: Z11.3 Encounter for screening for infections with a predominantly sexual mode of transmission (principal)
CPT/HCPCS: 36415; 86703; 86706; 86803; 87340

== ENCOUNTER → 2021-08-11 16:36 | Outpatient (CLI) | payer MEDICAID, SELFPAY | PROVIDERS: PCP Student in an Organized Health Care Education/Training Program; Visit Provider Obstetrics & Gynecology | DX: N39.0 Urinary tract infection, site not specified (principal) | CPT/HCPCS: 87086; 87088 ==

== ENCOUNTER → 2021-11-02 14:34 | Outpatient (CLI) | payer MEDICAID, SELFPAY ==
[2021-11-02 16:22] LABS: HIV - WCH Non-Reactive (Nonreactive); Hepatitis B Surface Antigen Non-Reactive (Nonreactive); Hepatitis C Antibody Non-Reactive (Nonreactive); Syphilis Antibodies Non-reactive
[2021-11-06 14:12] LABS: HPV APTIMA, High Risk Negative (Negative)
== END ==
PROVIDERS: PCP Student in an Organized Health Care Education/Training Program; Visit Provider Student in an Organized Health Care Education/Training Program
DX: Z12.4 Encounter for screening for malignant neoplasm of cervix (principal); Z11.3 Encounter for screening for infections with a predominantly sexual mode of transmission
CPT/HCPCS: 36415; 86703; 86780; 86803; 87340; 87624; 88175; G0145

== ENCOUNTER 2021-12-31 17:02 | Outpatient (CLI) | payer MEDICAID, SELFPAY | END 2021-12-31 23:59 | disposition home or self-care (01) | PROVIDERS: PCP Student in an Organized Health Care Education/Training Program; Visit Provider Student in an Organized Health Care Education/Training Program | DX: R30.0 Dysuria (principal); N77.1 Vaginitis, vulvitis and vulvovaginitis in diseases classified elsewhere | CPT/HCPCS: 87086; 87088 ==

== ENCOUNTER 2022-03-01 13:24 | Outpatient (CLI) | payer MEDICAID, SELFPAY | END 2022-03-01 23:59 | disposition home or self-care (01) | PROVIDERS: PCP Student in an Organized Health Care Education/Training Program; Visit Provider Student in an Organized Health Care Education/Training Program | DX: N30.00 Acute cystitis without hematuria (principal) | CPT/HCPCS: 87086; 87088 ==

== ENCOUNTER 2022-03-30 16:03 | Emergency (ER) | payer MEDICAID, SELFPAY ==
[2022-03-30 16:03] VITALS: BP 135/113; PULSE 106; RESP 18; TEMP 36.9; O2SAT 99; BMI 42.0
--- NOTE | 2022-03-30 16:39 | ED.VIS.LOWEX ---
HPI History of Present Illness Chief Complaint: Lower Extremity Injury Detail of Chief Complaint: Atraumatic right lower leg and calf pain. Informant: patient Occured/Mechanism Mechanism/Context: No injury and No blunt trauma Onset/Context/Timing Onset: Days Context: Gradual Onset Timing: Continuous Quality of Pain: Dull and Aching Current Severity: Mild Maximum Severity: Mild Associated Symptoms Associated Symptoms: Negative for Parasthesia, Weakness and Loss of Funtion Narrative Narrative: 36-year-old female no significant past medical history. Said 7 days ago she started developing right knee pain then developed mild swelling. Then the pain went posteriorly into her proximal and middle calf. She is never had a DVT or PE. Her mom has a history of blood clots. She denies any recent fall or trauma. She denies any recent travel, surgery or immobilization. No chest pain or shortness of breath. She does not smoke. She is on no hormone replacement therapy. Prior similar symptoms: No Recent Illness/Hospitalization: No PFSH PFSH Medical History no medical history no medical history Home Medications azithromycin 250 mg PO DAILY #6 tablet 12/05/13 [Rx Last Taken Unknown] Allergy/AdvReac Type Severity Reaction Status Date / Time amoxicillin [Amoxicillin] Allergy Hives Verified 03/30/22 16:05 Social History Smoking Status: Never smoker ROS ROS ED ROS Narrative Denies. Review of Systems ROS Unobtainable: Denies due to encephalopathy Constitutional Constitutional ED: Denies fever(s) Eyes Eyes: Denies change in vision ENT ENT ED: Denies ear pain Cardiovascular Cardiovascular: Denies chest pain or palpitations Respiratory/Chest Respiratory/Chest: Denies cough or dyspnea Gastrointestinal Gastrointestinal: Denies abdominal pain, diarrhea, nausea or vomiting Genitourinary Genitourinary ED: Denies dysuria or hematuria Musculoskeletal Musculoskeletal: Denies myalgias Integumentary Denies rash Neurologic Neurologic: Denies headache(s) Psychiatric Psychiatric: Denies depression Endocrine Endocrinology: Denies polyuria Hematologic/Lymphatic Hematologic/Lymphatic: Denies easy bruising Allergic/Immunologic Allergic/Immunologic ED: Denies urticaria EXAM Physical Exam Narrative Exam Narrative: 36-year-old female no acute distress vital signs stable afebrile. Blood pressure elevated 135/113. H EENT exam unremarkable. Lungs are clear. Heart regular rhythm no murmur. Abdomen soft nontender. Moving all 4 extremities. Neurovascularly intact. Right knee mild swelling. Small effusion. Tender anteriorly. Full flexion-extension intact. No septic joint. No redness. Able to do flexion-extension. She also has tenderness to her proximal and mid calf. No cords. Right foot has normal dorsi plantar flexion. Normal DP pulse. Normal touch sensation. Normal motor strength. Const Vital Signs: 03/30/22 16:03 Temperature 98.4 F Temperature Source Temporal Pulse Rate 106 H Respiratory Rate 18 Blood Pressure 135/113 H Blood Pressure Mean 120 Pulse Ox 99 Oxygen Delivery Method Room Air Positive well nourished, well developed and obese; Negative for cachectic, contractures or unkempt General Appearance ED: well developed and NAD; Negative for unkempt, cachectic or contractures Nutritional Appearance: obese; Negative for cachectic HEENT Reports moist mucous membranes normocephalic and atraumatic Eyes PERRL Neck full ROM and supple Thyroid: Negative for tender Chest Wall inspection of chest normal and palpation of chest normal Resp normal respiratory effort, no retractions and clear to auscultation bilaterally Auscultation: Negative for rales, rhonchi or wheezes Cardio regular rate, regular rhythm, S1 normal heart sound, S2 normal heart sound and no murmurs GI non-tender, non-distended and no masses Auscultation: normoactive bowel sounds Palpation: soft; Negative for tender, guarding or rebound tenderness present Back/Spine no CVA tenderness General Back: Negative for CVA tenderness Thoracic Spine / Upper Back: Negative for thoracic spinal tenderness Lumbar Spine / Lower Back: Negative for lumbar spinal tenderness Extremity normal to inspection and full ROM Extremity Narrative: Right knee mild swelling. Small effusion. Full flexion extension. No septic joint. No cellulitis. Proximal calf and mid calf tenderness. No cord. No edema. Right foot neurovascular intact with normal motor strength and sensation. General Extremety ED: Negative for cyanosis or edema General Extremity: Negative for cyanosis or edema Neuro oriented x3 and moves all extremities Sensorium / Orientation: alert, oriented to person, oriented to place and oriented to time Motor Exam: strength 5/5 throughout Psych mental status grossly normal Appearance: Negative for unkempt Mood & Affect: Negative for anxious Skin no wounds Lesions: no lesions Rashes: no rashes Trauma: Negative for abrasion, laceration or puncture MDM MDM MDM Narrative Medical decision making narrative: 36-year-old female with right knee pain and swelling which may be arthritis versus other etiologies for an effusion. She also has right calf pain that may be secondary to the same effusion possibly a Dodson's cyst or rule out DVT. She has no DVT risk factors. Her mom does have a history of blood clots. Repeat exam patient doing well. He has be discharged home. Ice. Elevate. Anti-inflammatories. Radiography Diagnostic Testing: Clinical Impression(s) from Imaging Studies Knee X-Ray 03/30/22 16:42 IMPRESSION: Negative right knee x-rays. Electronically Signed: Kennedy Hernandez MD at 17:21 EDT , Right knee x-ray, interpreted by myself, shows no acute entomology. Good joint space. No significant arthritis. Multiple views. Interpreted by myself and the radiologist. Right lower extremity venous study showed no DVT noted. No Dodson's cyst. But there was fluid in the calf. Which is the cause of her swelling and pain. Discharge Plan Triage Chief Complaint: Lower Extremity Injury ED Provider: Rian Fenton Dx/Rx/DC Orders Clinical Impression: Edema, Effusion, right knee Instructions: ED Knee Effusion Prescriptions: No Action azithromycin 250 MG tablet 250 mg PO DAILY Qty: 6 RF: 0 Primary Care Provider: Luis Fernando Dunlap Referrals: Luis Fernando Dunlap, [Primary Care Provider] - 10-14 Days if not better Activity Restrictions/Additional Instructions: Ice and elevate your right lower leg and the the decrease pain and swelling. Motrin for pain and swelling. Follow-up with your doctor if not improving. Your knee x-ray look good. Ultrasound of your leg showed no blood clot but a fluid collection. This should resolve with time. Disposition Disposition: Home, Self Care
--- NOTE | 2022-03-30 16:42 | RAD_ITS ---
EXAM: XR RIGHT KNEE, 3 VIEWS CLINICAL INDICATION: atraumatic right knne pain TECHNIQUE: Three views of the right knee. This report was created using [employer] report generation technology. COMPARISON: None. FINDINGS: BONES/JOINTS: Unremarkable. No acute fracture. No subluxation. Normal alignment. Preservation of the joint space. No sclerotic or destructive changes observed. SOFT TISSUES: Unremarkable. No soft tissue swelling or gas. No radiopaque foreign body. RAD/Knee 3 Views IMPRESSION: Negative right knee x-rays. Electronically Signed: Kenendy Hernandez MD at 17:21 EDT ,
--- NOTE | 2022-03-30 17:05 | US_ITS ---
EXAM: US DUPLEX RIGHT LOWER EXTREMITY VEINS CLINICAL INDICATION: RT POSTERIOR CALF PAIN TECHNIQUE: Real-time duplex ultrasound scan of the right lower extremity veins integrating B-mode two-dimensional vascular structure, Doppler spectral analysis, color flow Doppler imaging and compression. This report was created using [employer] report generation technology. COMPARISON: None. FINDINGS: DEEP VEINS: No DVT. SUPERFICIAL VEINS: Unremarkable. No thrombus in the visualized great saphenous vein. SOFT TISSUES: Fluid identified in the muscle layer at the posterior calf in the area of pain but no organized fluid collection is seen. No popliteal cyst. LYMPH NODES: No other mass or adenopathy. US/Venous Duplex Imag/Limited/Uni IMPRESSION: No DVT. Electronically Signed: Kennedy Hernandez MD at 17:46 EDT ,
== END 2022-03-30 17:38 | disposition home or self-care (01) ==
LOC: ED 17:34
PROVIDERS: Emergency Provider Emergency Medicine; PCP Student in an Organized Health Care Education/Training Program; Visit Provider Emergency Medicine
DX: M25.461 Effusion, right knee (principal); R60.9 Edema, unspecified; M25.561 Pain in right knee
CPT/HCPCS: 73562; 93971; 99282

== ENCOUNTER → 2022-04-01 | Outpatient (CLI) | payer MEDICAID, SELFPAY ==
[2022-04-01 13:30] LABS: HIV - WCH Non-Reactive (Nonreactive); Hepatitis B Surface Antigen Non-Reactive (Nonreactive); Hepatitis C Antibody Non-Reactive (Nonreactive); Syphilis Antibodies Non-reactive
== END | disposition home or self-care (01) ==
PROVIDERS: PCP Student in an Organized Health Care Education/Training Program; Visit Provider Obstetrics & Gynecology
DX: N89.8 Other specified noninflammatory disorders of vagina (principal); Z11.3 Encounter for screening for infections with a predominantly sexual mode of transmission; R30.0 Dysuria
CPT/HCPCS: 36415; 86703; 86780; 86803; 87086; 87088; 87340

== ENCOUNTER 2022-08-12 17:39 | Emergency (ER) | payer MEDICAID, SELFPAY ==
[2022-08-12 17:41] VITALS: BP 132/87; PULSE 103; RESP 14; TEMP 36.8; O2SAT 100; BMI 39.9
[2022-08-12 18:01] VITALS: RESP 18
--- NOTE | 2022-08-12 18:03 | ED.VIS.LOWEX ---
HPI History of Present Illness Chief Complaint: Lower Extremity Injury Informant: patient Onset/Context/Timing Onset: Hours (0.5) Context: Gradual Onset Timing: Continuous Quality of Pain: Aching and Throbbing Location: R knee, anteriorly Current Severity: Severe Maximum Severity: Severe Worsened by: movement Relieved by: remaining still Associated Symptoms Associated Symptoms: Positive for Loss of Funtion (can't bend); Negative for Parasthesia or Weakness Narrative Narrative: Patient has had issues in her right knee for the past year. Her mother has Antithrombin III deficiency. Patient saw Dr. Jiménez orthopedics, it is recommended that she have surgery on her right knee, the specifics are not known. She presents here saying that in the past 2 weeks she has had significant discomfort in the right knee, she had a cortisone injection in her right knee by Dr. Jiménez about 10 days ago, she states for the first 2 days it was better, but subsequently went right back to the way it was which was significant discomfort and problems. In the past 20 minutes or so prior to arrival, she states it has become red, warm, and she cannot move it at all. She denies any fevers, chills, systemic symptoms, recent injury. No numbness or tingling distally. She states she is concerned about a blood clot; she points to the anterior aspect of the knee at the kneecap stating that it is more swollen than normal just in the past half hour. She shows me a battery of testing because she was referred to hematology by Dr. Jiménez, she and mother state because mother has a history of Antithrombin 3 deficiency and they want to know if she has a clotting disorder and/or a blood clot prior to Dr. Jiménez doing surgery. She shows me the results of a vascular ultrasound of the right lower extremity that she had done 3 days ago on 08/09/2022 that is negative for any DVT or superficial venous thrombosis. Patient states she has never had gout before that she knows of. She has never had any other joints that have been like this where it is red hot and she is unable to move it. [facility] Medical History Heel spur Hypertension Hypothyroidism Home Medications cephalexin 500 mg capsule 500 mg PO Q6 #40 CAPSULES 08/12/22 [Rx Last Taken Unknown] cetirizine 10 mg tablet 10 mg PO DAILY 08/12/22 [History Last Taken Unknown] fluticasone propionate 50 mcg/actuation nasal spray,suspension 2 spray intranasal DAILY 08/12/22 [History Last Taken Unknown] hydrocodone-acetaminophen 5-325mg 5mg-325mg 1 tab PO Q6H PRN PRN Pain 3 days #10 TABLETS 08/12/22 [Rx Last Taken Unknown] levothyroxine 75 mcg tablet 75 mcg PO DAILY 08/12/22 [History Last Taken Unknown] lisinopril 5 mg tablet 5 mg PO DAILY 08/12/22 [History Last Taken Unknown] meloxicam 15 mg tablet 15 mg PO DAILY 08/12/22 [History Last Taken Unknown] omeprazole 20 mg capsule,delayed release 20 mg PO DAILY 08/12/22 [History Last Taken Unknown] phentermine 37.5 mg tablet 37.5 mg PO DAILY 08/12/22 [History Last Taken Unknown] Allergy/AdvReac Type Severity Reaction Status Date / Time amoxicillin [Amoxicillin] Allergy Hives Verified 08/12/22 18:02 Social History Smoking Status: Never smoker ROS ROS ED Constitutional Constitutional ED: Denies chills or fever(s) Musculoskeletal Musculoskeletal: Reports extremity pain; Denies neck pain Integumentary Reports erythema; Denies Abrasions, rash or wounds Neurologic Neurologic: Denies paresthesias or weakness EXAM Physical Exam Const Vital Signs: 08/12/22 17:41 08/12/22 18:01 08/12/22 21:16 Temperature 98.2 F Temperature Source Temporal Pulse Rate 103 H 88 Respiratory Rate 14 18 18 Blood Pressure 132/87 H 126/84 H Blood Pressure Mean 102 98 Pulse Ox 100 96 Oxygen Delivery Method Room Air Room Air Room Air Positive well nourished, well developed and obese General Appearance ED: well developed and NAD Nutritional Appearance: obese Neck full ROM and supple Back/Spine normal ROM and normal to inspection Extremity Extremity Narrative: Patient not able to move right knee at all. There is an effusion, it is very mildly erythematous anteriorly only, does not appear to be indurated or cellulitic, and the knee joint is warm compared to the calf/leg and thigh. It is extremely tender with barely touching the skin circumferentially around the knee joint. Her calf is soft and nontender. There are no palpable cords anywhere. She can move her hip and ankle without any difficulty and is neurovascular intact distally. Neuro oriented x3, no focal motor deficits and no sensory deficits noted Sensorium / Orientation: alert Psych mental status grossly normal and thought process normal Skin no wounds Rashes: no rashes MDM MDM MDM Narrative Medical decision making narrative: Clinically patient is examining like a septic arthritis versus gout/pseudogout/inflammatory arthritis. She will not move the knee. She was amenable to an arthrocentesis after I described the pros and cons of that. See the procedure note. Surprisingly I was only able to get a droplet of joint fluid even with compressing the suprapatellar pouch, and I am confident that the needle was in the joint since I had positive string sign on that small amount of fluid. However, lab was not able to perform a cell count with differential, crystals, nor would they do a Gram stain because of the hour of the day apparently and that will be done tomorrow apparently. The patient is doing well clinically, her CRP is elevated but her ESR is normal and her white blood count is normal. I am less suspicious of an acutely septic joint, but to treat her against the worst case scenarios, I am putting her on antibiotics until she can follow-up with her orthopod. I reassured her that based on the testing she had 3 days ago she does not have a DVT anywhere in the right lower extremity. She is comfortable with that plan and understands. She was also prescribed some analgesics. She declined crutches since she has them at home but I did offer those as well as a wrap. Lab Data Attestation: I reviewed the patient's lab results. Labs: Laboratory Results - last 24 hr 08/12/22 08/12/22 18:55 18:55 WBC 8.2 RBC 4.62 Hgb 14.1 Hct 42.1 MCV 91.1 MCH 30.5 MCHC 33.5 RDW Std Deviation 41.0 RDW Coeff of [place] 12.4 Plt Count 308 MPV 8.7 Immature Gran % (Auto) 0.400 Neut % (Auto) 64.9 Lymph % (Auto) 27.5 [place] % (Auto) 6.1 Eos % (Auto) 0.6 Baso % (Auto) 0.5 Absolute Neuts (auto) 5.4 Absolute Lymphs (auto) 2.27 Nucleated RBC % 0 ESR 16 Sodium 139 Potassium 3.5 Chloride 106 Carbon Dioxide 27.0 Anion Gap 6 BUN 9 Creatinine 0.65 Estim Creat Clear Calc 92.81 Est GFR (MDRD) Af Amer 131 Est GFR (MDRD) Non-Af 108 BUN/Creatinine Ratio 13.9 Glucose 97 Uric Acid 5.1 Calcium 8.9 C-React Prot Ext Range 12.30 H Procedures Other Procedures Procedure(s): Right knee arthrocentesis: After informed consent from the patient, sterile prep and drape initially using isopropanol, locally anesthetizing with 1.5 cc of plain 1% lidocaine medial aspect subpatellar approach, reprepping with Betadine, then inserting sterile 18-gauge needle into a new break in the skin just superior where I anesthetized, inserted into the knee joint, only a drop of bloody joint fluid with a positive string sign was able to be aspirated even with massage in the suprapatellar pouch. Withdrawn and placed a bandage with bacitracin, tolerated well no complications. Discharge Plan Triage Chief Complaint: Lower Extremity Injury ED Provider: Ruben Melton Dx/Rx/DC Orders Clinical Impression: Acute pain of right knee Instructions: Reducing Knee Pain and Swelling Prescriptions: New hydrocodone-acetaminophen [hydrocodone-acetaminophen] 1 TABLET tablet 1 tab PO Q6H PRN PRN (Reason: Pain) 3 Days Qty: 10 0RF cephalexin [cephalexin] 500 MG capsule 500 mg PO Q6 Qty: 40 0RF No Action cetirizine 10 mg tablet 10 mg PO DAILY Label Comments: TAKE 1 TABLET BY MOUTH DAILY meloxicam 15 mg tablet 15 mg PO DAILY Label Comments: Take 1 tablet by mouth once daily. phentermine 37.5 mg tablet 37.5 mg PO DAILY Label Comments: TAKE 1 TABLET BY MOUTH ONCE DAILY FOR 30 DAYS levothyroxine 75 mcg tablet 75 mcg PO DAILY Label Comments: Take 1 tablet by mouth once daily. In the morning before breakfast, Take on empty stomach. For Thyroid omeprazole 20 mg capsule,delayed release(DR/EC) 20 mg PO DAILY Label Comments: Take 1 capsule by mouth daily before breakfast. 1/2 hr before meal. lisinopril 5 mg tablet 5 mg PO DAILY Label Comments: Take 1 tablet by mouth once daily. fluticasone propionate 50 mcg/actuation spray,suspension 2 spray INTRANASAL DAILY Label Comments: Use 2 Sprays in each nostril once daily. Rinse mouth after use. Primary Care Provider: Luis Fernando Dunlap Referrals: Ruben Jiménez MD [Non-Staff] - As soon as possible Luis Fernando Dunlap DO [Primary Care Provider] - Disposition Disposition: Home, Self Care
[2022-08-12] MEDS: Morphine 4 MG/ML Syringe IV (18:28)
[2022-08-12] MEDS: Colchicine 0.6 MG TABLET PO (18:28)
[2022-08-12] MEDS: Ketorolac 15 MG/ML Vial IV (18:28)
[2022-08-12] MEDS: Lidocaine 1% (20 ml mdv) 20 ML Vial 5 ML INFILT (19:01)
[2022-08-12 19:07] LABS: Absolute Lymphocyte Count 2.27 X10^3/uL (0.83-4.51); Absolute Neutrophil Count 5.4 X10^3/uL (2.0-7.7); Basophil# 0.04 X10^3/uL; Basophil% 0.5 % (0-1); Eosinophil# 0.05 X10^3/uL; Eosinophils% 0.6 % (0-5); Hematocrit 42.1 % (37-47); Hemoglobin 14.1 g/dL (12.0-15.0); Lymphocyte # 2.27 X10^3/ul (0.83-4.51); Lymphocyte % 27.5 % (19-41); Mean Corp Hgb Conc 33.5 g/dL (32-36); Mean Corpuscular Hgb 30.5 pg (27.0-32.0); Mean Corpuscular Volume 91.1 fL (81-99); Mean Platelet Vol. 8.7 fl (6.2-12.0); Monocyte% 6.1 % (0-10); NRBC Flagged by Analyzer 0 % (0-5); Neutrophil # 5.35 X10^3/uL (2.7-7.7); Neutrophil % 64.9 % (47-70); Platelet Count 308 K/mm3 (150-450); RBC Distribution Width CV 12.4 % (11.6-14.6); Red Blood Count 4.62 M/mm3 (4.2-5.4); White Blood Count 8.2 K/mm3 (4.4-11.0)
[2022-08-12 19:19] LABS: Erythrocyte Sedimentation Rate 16 mm/hr (0-30)
[2022-08-12 19:27] LABS: Anion Gap 6 (5-15); BUN 9 mg/dL (7-18); BUN/Creat Ratio 13.9 RATIO (10-20); Calcium,Total 8.9 mg/dL (8.5-10.1); Chloride 106 mmol/L (98-107); Creatinine, Serum 0.65 mg/dL (0.55-1.02); EST Glomerular Filtration Rate 108 mL/min (>60); Est Glom Filt Rate - Afr Amer 131 mL/min (>60); Estimated Creatinine Clearance 92.81 ml/min; Glucose 97 mg/dL (74-106); Potassium 3.5 mmol/L (3.5-5.1); Sodium Level 139 mmol/L (136-145); Uric Acid 5.1 mg/dL (2.6-6.0)
[2022-08-12 21:16] VITALS: BP 126/84; PULSE 88; RESP 18; O2SAT 96
[2022-08-12 22:13] VITALS: BP 121/75; PULSE 80; RESP 16; O2SAT 99
[2022-08-12] MEDS: Cephalexin 250 MG Capsule 500 MG PO (22:23)
[2022-08-12 22:24] VITALS: BP 121/75; PULSE 90; RESP 18; O2SAT 99
== END 2022-08-12 22:28 | disposition home or self-care (01) ==
PROVIDERS: Emergency Provider Emergency Medicine; PCP Student in an Organized Health Care Education/Training Program; Visit Provider Emergency Medicine
DX: M25.561 Pain in right knee (principal); I10 Essential (primary) hypertension; R79.82 Elevated C-reactive protein (CRP)
CPT/HCPCS: 80048; 84550; 85025; 85652; 86140; 87070; 87075; 87205; 96374; 96375; 99285; A4216

== ENCOUNTER → 2022-11-23 | Outpatient (CLI) | payer MEDICAID, SELFPAY ==
[2022-11-28 14:06] LABS: HPV APTIMA, High Risk Negative (Negative)
== END | disposition home or self-care (01) ==
LOC: LABSPEC 16:20
PROVIDERS: PCP Student in an Organized Health Care Education/Training Program; Visit Provider Student in an Organized Health Care Education/Training Program
DX: Z12.4 Encounter for screening for malignant neoplasm of cervix (principal)
CPT/HCPCS: 87624; 88175; G0145

== ENCOUNTER → 2022-12-20 | Outpatient (CLI) | payer MEDICAID, SELFPAY | END | disposition home or self-care (01) | LOC: LABSPEC 16:14 | PROVIDERS: PCP Student in an Organized Health Care Education/Training Program; Visit Provider Student in an Organized Health Care Education/Training Program | DX: R30.0 Dysuria (principal) | CPT/HCPCS: 87086; 87088 ==

== ENCOUNTER → 2023-04-21 | Outpatient (CLI) | payer MEDICAID, SELFPAY | END | disposition home or self-care (01) | LOC: LABSPEC 10:41 | PROVIDERS: PCP Student in an Organized Health Care Education/Training Program; Visit Provider Nurse Practitioner Women's Health | DX: N39.0 Urinary tract infection, site not specified (principal) | CPT/HCPCS: 87086; 87088 ==

== ENCOUNTER 2023-04-28 22:06 | Emergency (ER) | payer MEDICAID, SELFPAY ==
[2023-04-28 22:07] VITALS: BP 148/109; PULSE 105; RESP 16; TEMP 36.3; O2SAT 97; BMI 44.2
--- NOTE | 2023-04-28 22:09 | ED.RN ---
ANIMAL BITE FORM NOT REQUIRED DUE TO BITE FROM BUG
--- NOTE | 2023-04-28 22:15 | EX.ED.VISEXT ---
HPI History of Present Illness Chief Complaint: Bite [facility] Medical History Heel spur Hypertension Hypothyroidism Home Medications cephalexin 500 mg capsule 500 mg PO Q6 #40 CAPSULES 08/12/22 [Rx Last Taken Unknown] cetirizine 10 mg tablet 10 mg PO DAILY 08/12/22 [History Last Taken Unknown] fluticasone propionate 50 mcg/actuation nasal spray,suspension 2 spray intranasal DAILY 08/12/22 [History Last Taken Unknown] hydrocodone-acetaminophen 5-325mg 5mg-325mg 1 tab PO Q6H PRN PRN Pain 3 days #10 TABLETS 08/12/22 [Rx Last Taken Unknown] levothyroxine 75 mcg tablet 75 mcg PO DAILY 08/12/22 [History Last Taken Unknown] lisinopril 5 mg tablet 5 mg PO DAILY 08/12/22 [History Last Taken Unknown] meloxicam 15 mg tablet 15 mg PO DAILY 08/12/22 [History Last Taken Unknown] omeprazole 20 mg capsule,delayed release 20 mg PO DAILY 08/12/22 [History Last Taken Unknown] phentermine 37.5 mg tablet 37.5 mg PO DAILY 08/12/22 [History Last Taken Unknown] Allergy/AdvReac Type Severity Reaction Status Date / Time amoxicillin [Amoxicillin] Allergy Hives Verified 04/28/23 22:16 Social History Smoking Status: Never smoker EXAM Physical Exam Const Vital Signs: 04/28/23 22:07 Temperature 97.3 F L Temperature Source Temporal Pulse Rate 105 H Respiratory Rate 16 Blood Pressure 148/109 H Blood Pressure Mean 122 Pulse Ox 97 MDM MDM MDM Narrative Medical decision making narrative: HISTORY OF PRESENT ILLNESS: 38-year-old female here with concern for right groin tick bite. She states this happened approximately 1 hour ago she felt a stinging sensation in her right upper thigh. She did not see an obvious tick. She is unsure of if the tick has been attached to her however she is concerned because she recently got a new dog and it has been playing outside outdoors more than being indoors. She is concerned that she was exposed to a tick through this vector. REVIEW OF SYSTEMS: Pertinent positives: Tick bite Pertinent negatives: fever, [place] PHYSICAL EXAM: Nursing triage notes reviewed, Vital signs reviewed Constitutional: please see mdm Extremities: No edema Cardiovascular: Regular rate and rhythm, no murmurs, rubs Respiratory: Clear lungs Neuro: Alert and oriented x3, neuro exam at baseline, cranial nerves II through XII are intact. No pain with extraocular muscle movement. There is negative test of skew. Normal speech. 5 of 5 strength in upper and lower extremities in flexion extension. Intact sensation to light touch in upper and lower extremity dermatomes. No truncal or extremity ataxia. No dysdiadochokinesia. Normal gait. 2+ reflexes. No meningeal signs. Negative Babinski. NIH of 0 Skin: Nondescript punctate erythema to the right upper thigh, no crepitus, no bullae, no fluctuance, no induration. MEDICAL DECISION MAKING: Chief Complaint: Tick bite External records reviewed: Last ED visit in July 2022 Factors affecting care: Hypothyroidism, hypertension Social determinants of health: None History obtained from others: None Consults: None ALL IMAGES (IF OBTAINED) HAVE BEEN PERSONALLY REVIEWED AND INTERPRETED BY MYSELF. [facility] Narrative: Patient was hemodynamically stable, afebrile, nontoxic-appearing. There is nondescript skin irritation to the right upper thigh. No obvious target lesion. Patient had no symptoms of disseminated Lyme disease. She is unsure of how long the tick was attached however I will treat empirically for Lyme disease given that that is probably the most severe outcome of a tick bite. She agreed. She received 200 mg of oral doxycycline as a prophylactic dose. She is appropriate discharge home. The patient and/or family, caregivers express understanding. The patient and/or family, caregivers agrees with the plan. Total critical care time today provided was at least 0 minutes. This excludes separately billable procedures. Critical care time (if documented) is secondary to the patient having high probability of clinically significant/life threatening deterioration in the patient's condition which required my urgent intervention. Shared decision making: I will have a discussion with the patient and or visitors regarding risk/benefits of further testing or admission. They will be made aware of of the risk/benefits inherent in this decision they will be given the opportunity to voice understanding. Discharge Plan Triage Chief Complaint: Bite ED Provider: David Mazariegos Dx/Rx/DC Orders Clinical Impression: Tick bite Instructions: ED Lyme Disease Prescriptions: No Action cetirizine 10 mg tablet 10 mg PO DAILY Label Comments: TAKE 1 TABLET BY MOUTH DAILY meloxicam 15 mg tablet 15 mg PO DAILY Label Comments: Take 1 tablet by mouth once daily. phentermine 37.5 mg tablet 37.5 mg PO DAILY Label Comments: TAKE 1 TABLET BY MOUTH ONCE DAILY FOR 30 DAYS levothyroxine 75 mcg tablet 75 mcg PO DAILY Label Comments: Take 1 tablet by mouth once daily. In the morning before breakfast, Take on empty stomach. For Thyroid omeprazole 20 mg capsule,delayed release(DR/EC) 20 mg PO DAILY Label Comments: Take 1 capsule by mouth daily before breakfast. 1/2 hr before meal. lisinopril 5 mg tablet 5 mg PO DAILY Label Comments: Take 1 tablet by mouth once daily. fluticasone propionate 50 mcg/actuation spray,suspension 2 spray INTRANASAL DAILY Label Comments: Use 2 Sprays in each nostril once daily. Rinse mouth after use. hydrocodone-acetaminophen [hydrocodone-acetaminophen] 1 TABLET tablet 1 tab PO Q6H PRN PRN (Reason: Pain) 3 Days Qty: 10 0RF cephalexin [cephalexin] 500 MG capsule 500 mg PO Q6 Qty: 40 0RF Primary Care Provider: Luis Fernando Dunlap Referrals: Luis Fernando Dunlap DO [Primary Care Provider] - Activity Restrictions/Additional Instructions: Thank you for trusting us with your care today! Please take Tylenol (2 pills, 650 mg), ibuprofen (2 pills, 400 mg) every 6 hours as needed for pain and fever control. Please return to the emergency department if your symptoms change or worsen. Specifically if you start develop headache, fever, paresthesias, chest pain, shortness of breath, or if you lose consciousness. Please follow with your primary care physician for further outpatient evaluation and management. Disposition Disposition: Home, Self Care
[2023-04-28] MEDS: Doxycycline 100 MG CAPSULE 200 MG PO (22:34)
[2023-04-28 22:35] VITALS: RESP 16
== END 2023-04-28 22:36 | disposition home or self-care (01) ==
PROVIDERS: Emergency Provider Emergency Medicine; PCP Student in an Organized Health Care Education/Training Program; Visit Provider Emergency Medicine
DX: S30.861A Insect bite (nonvenomous) of abdominal wall, initial encounter (principal); E03.9 Hypothyroidism, unspecified; I10 Essential (primary) hypertension; Z79.899 Other long term (current) drug therapy; W57.XXXA Bitten or stung by nonvenomous insect and other nonvenomous arthropods, initial encounter
CPT/HCPCS: 99283

== ENCOUNTER → 2023-05-03 | Outpatient (CLI) | payer MEDICAID, SELFPAY ==
[2023-05-06 14:09] LABS: HPV APTIMA, High Risk Negative (Negative)
== END | disposition home or self-care (01) ==
LOC: LABSPEC 15:38
PROVIDERS: PCP Student in an Organized Health Care Education/Training Program; Visit Provider Student in an Organized Health Care Education/Training Program
DX: Z12.4 Encounter for screening for malignant neoplasm of cervix (principal)
CPT/HCPCS: 87624; 88175; G0145

== ENCOUNTER 2023-05-06 09:48 | Emergency (ER) | payer MEDICAID, SELFPAY ==
[2023-05-06] VITALS (15 sets, daily range): BP systolic 109–141; BP diastolic 61–105; PULSE 82–109; RESP 16–29; TEMP 36.1; O2SAT 96–99; BMI 44.1
--- NOTE | 2023-05-06 10:09 | EKG12_ITS ---
Test Reason : CP Blood Pressure : / mmHG Vent. Rate : 100 BPM Atrial Rate : 100 BPM P-R Int : 166 ms QRS Dur : 068 ms QT Int : 342 ms P-R-T Axes : 045 047 031 degrees QTc Int : 441 ms Normal sinus rhythm Normal ECG Confirmed by PORFIRIO NOLEN, THERESA ([id number]), newspaper editor LEELA JAVIER ([id number]) on 05/09/2023 10:48:50 A M Referred By: TOMMIE/DIMPLE Confirmed By:CORKY MONROY MD
--- NOTE | 2023-05-06 10:10 | ED.VIS.CHEST ---
HPI History of Present Illness Chief Complaint: Chest Pain Narrative Narrative: 38-year-old female past medical history of hypothyroidism and hypertension presents with midsternal chest pain that is worse with movement of her arms that she has had since 730 this morning. She states it woke her from sleep. She felt a sharp stabbing chest pain then pressure. She started feeling short of breath. She denies any fevers or chills, no cough. Of note, in January, over 3 months ago, she had surgery on her right knee. She denies any nausea or vomiting, no pleuritic component completely, she states when she was driving here, and moving her arms her substernal chest pain worsened. [facility] Medical History Heel spur Hypertension Hypothyroidism Home Medications cephalexin 500 mg capsule 500 mg PO Q6 #40 CAPSULES 08/12/22 [Rx Last Taken Unknown] cetirizine 10 mg tablet 10 mg PO DAILY 08/12/22 [History Last Taken Unknown] fluticasone propionate 50 mcg/actuation nasal spray,suspension 2 spray intranasal DAILY 08/12/22 [History Last Taken Unknown] hydrocodone-acetaminophen 5-325mg 5mg-325mg 1 tab PO Q6H PRN PRN Pain 3 days #10 TABLETS 08/12/22 [Rx Last Taken Unknown] levothyroxine 75 mcg tablet 75 mcg PO DAILY 08/12/22 [History Last Taken Unknown] lisinopril 5 mg tablet 5 mg PO DAILY 08/12/22 [History Last Taken Unknown] meloxicam 15 mg tablet 15 mg PO DAILY 08/12/22 [History Last Taken Unknown] omeprazole 20 mg capsule,delayed release 20 mg PO DAILY 08/12/22 [History Last Taken Unknown] phentermine 37.5 mg tablet 37.5 mg PO DAILY 08/12/22 [History Last Taken Unknown] Allergy/AdvReac Type Severity Reaction Status Date / Time amoxicillin [Amoxicillin] Allergy Hives Verified 05/06/23 09:52 Social History Smoking Status: Never smoker ROS ROS ED ROS Narrative Constitutional: No fever, no chills. HEENT: No sore throat. No neck pain. No loss of vision. No rhinorrhea. Cardiovascular: Substernal chest pain. No palpitations. No pedal edema. Respiratory: No cough, positive shortness of breath. Abdominal: No abdominal pain. No nausea. No vomiting. Genitourinary: No dysuria. No hematuria. Musculoskeletal: No myalgias. No arthralgias. Neurologic: No headaches. No dizziness. No lightheadedness. Skin: No rash. No change in color. Psychiatric: No depression. No anxiety. EXAM Physical Exam Narrative Exam Narrative: Afebrile. Vital signs noted. HEENT: Normocephalic. Atraumatic. PERRL, EOMI. Neck soft and supple. No point tenderness or step off. Cardiovascular: Regular rate and rhythm. No murmurs, rubs, or gallops appreciated. Respiratory: No tachypnea. Lungs clear to auscultation bilaterally. Gastrointestinal: Abdomen soft, nontender, with normoactive bowel sounds. No rebound or guarding. Neurological: Awake. Alert. Nonfocal, nonlateralizing. Skin: No rash. Normal color. No pallor. Musculoskeletal: No pedal edema. Full range of motion extremities. Right-sided knee brace noted on exam. Neurovascular intact distally. Palpable dorsalis pedis pulse. Const Vital Signs: 05/06/23 09:49 05/06/23 09:57 05/06/23 09:57 Temperature 96.9 F L Temperature Source Temporal Pulse Rate 109 H 100 Respiratory Rate 20 H 16 Respiratory Effort Normal Non-Labored Blood Pressure 141/105 H Blood Pressure Mean 117 Pulse Ox 99 97 Oxygen Delivery Method Room Air Room Air 05/06/23 10:10 05/06/23 10:50 05/06/23 10:37 Temperature Temperature Source Pulse Rate 94 104 H Respiratory Rate 23 H 20 H Respiratory Effort Blood Pressure Blood Pressure Mean Pulse Ox 97 97 Oxygen Delivery Method Room Air Room Air 05/06/23 10:40 05/06/23 10:50 05/06/23 11:00 Temperature Temperature Source Pulse Rate 92 95 94 Respiratory Rate 20 H 21 H 18 Respiratory Effort Blood Pressure Blood Pressure Mean Pulse Ox Oxygen Delivery Method 05/06/23 11:10 05/06/23 11:20 05/06/23 11:30 Temperature Temperature Source Pulse Rate 101 H 89 91 Respiratory Rate 29 H 26 H 29 H Respiratory Effort Blood Pressure Blood Pressure Mean Pulse Ox Oxygen Delivery Method 05/06/23 11:40 05/06/23 11:50 05/06/23 12:00 Temperature Temperature Source Pulse Rate 86 87 86 Respiratory Rate 24 H 22 H 18 Respiratory Effort Blood Pressure Blood Pressure Mean Pulse Ox Oxygen Delivery Method 05/06/23 12:10 05/06/23 13:14 Temperature Temperature Source Pulse Rate 84 82 Respiratory Rate 24 H 18 Respiratory Effort Blood Pressure 109/61 Blood Pressure Mean 77 Pulse Ox 96 Oxygen Delivery Method Room Air Heart Score History: Slightly/Non-Suspicious ECG: Normal Age: </= 45 years Risk Factors: 1 or 2 Risk Factors Score: 1 MDM MDM MDM Narrative Medical decision making narrative: In the differential diagnosis is acute coronary syndrome versus musculoskeletal chest pain, lower on the differential is pulmonary embolism. However, she is 3 months remote from her knee surgery. EKG was obtained and interpreted by myself independently as normal sinus rhythm at 100 bpm without ectopy or acute ST changes. No STEMI. Comprehensive work-up was pursued, I will obtain serial enzymes/troponin along with a chest x-ray initially. D-dimer will be obtained. I reviewed her laboratory work and she has a normal white count of 6.5, hemoglobin normal at 14.7, hematocrit 46.1, platelet count normal at 315. D-dimer is negative at 0.39. Her electrolyte panel is grossly unremarkable except for glucose appropriately elevated at 121 with a normal anion gap of 9. Initial high-sensitivity troponin is less than 3. Her second troponin is 4 for a delta less than 7. At this point in time, I feel she can be discharged safely home with follow-up. I do not feel she requires observation. She will take [id number] analgesics as needed and follow-up with her primary care provider. Return instructions were reviewed. Disposition is discharged home in stable condition. History & Record Review Discussion w/independent historian: Patient Additional record(s) reviewed:: Prior ED visit Lab Data Attestation: I reviewed the patient's lab results. Labs: Laboratory Results - last 24 hr 05/06/23 05/06/23 05/06/23 10:06 10:06 10:27 WBC 6.5 RBC 4.91 Hgb 14.7 Hct 46.1 MCV 93.9 MCH 29.9 MCHC 31.9 L RDW Std Deviation 42.4 RDW Coeff of [place] 12.3 Plt Count 315 MPV 8.7 Immature Gran % (Auto) 0.500 Neut % (Auto) 47.4 Lymph % (Auto) 42.3 H [place] % (Auto) 7.1 Eos % (Auto) 1.8 Baso % (Auto) 0.9 Absolute Neuts (auto) 3.1 Absolute Lymphs (auto) 2.75 Nucleated RBC % 0 D-Dimer Quant (PE/DVT) 0.39 Sodium 137 Potassium 3.8 Chloride 103 Carbon Dioxide 25.0 Anion Gap 9 BUN 10 Creatinine 0.65 Estim Creat Clear Calc 91.90 Est GFR (MDRD) Af Amer 130 Est GFR (MDRD) Non-Af 107 BUN/Creatinine Ratio 15.3 Glucose 121 H Calcium 9.7 Troponin I High Sens < 3 L 05/06/23 12:30 WBC RBC Hgb Hct MCV MCH MCHC RDW Std Deviation RDW Coeff of [place] Plt Count MPV Immature Gran % (Auto) Neut % (Auto) Lymph % (Auto) [place] % (Auto) Eos % (Auto) Baso % (Auto) Absolute Neuts (auto) Absolute Lymphs (auto) Nucleated RBC % D-Dimer Quant (PE/DVT) Sodium Potassium Chloride Carbon Dioxide Anion Gap BUN Creatinine Estim Creat Clear Calc Est GFR (MDRD) Af Amer Est GFR (MDRD) Non-Af BUN/Creatinine Ratio Glucose Calcium Troponin I High Sens 4 Radiography Diagnostic Testing: Clinical Impression(s) from Imaging Studies Chest X-Ray 05/06/23 10:11 IMPRESSION: Normal x-ray examination of the chest. Electronically Signed: Bret Tsai MD at 10:26 EDT , Discharge Plan Triage Chief Complaint: Chest Pain ED Provider: Kaleb Santamaria Dx/Rx/DC Orders Clinical Impression: Chest pain, History of hypertension Instructions: ED Chest Pain, Uncertain Cause Prescriptions: No Action cetirizine 10 mg tablet 10 mg PO DAILY Label Comments: TAKE 1 TABLET BY MOUTH DAILY meloxicam 15 mg tablet 15 mg PO DAILY Label Comments: Take 1 tablet by mouth once daily. phentermine 37.5 mg tablet 37.5 mg PO DAILY Label Comments: TAKE 1 TABLET BY MOUTH ONCE DAILY FOR 30 DAYS levothyroxine 75 mcg tablet 75 mcg PO DAILY Label Comments: Take 1 tablet by mouth once daily. In the morning before breakfast, Take on empty stomach. For Thyroid omeprazole 20 mg capsule,delayed release(DR/EC) 20 mg PO DAILY Label Comments: Take 1 capsule by mouth daily before breakfast. 1/2 hr before meal. lisinopril 5 mg tablet 5 mg PO DAILY Label Comments: Take 1 tablet by mouth once daily. fluticasone propionate 50 mcg/actuation spray,suspension 2 spray INTRANASAL DAILY Label Comments: Use 2 Sprays in each nostril once daily. Rinse mouth after use. hydrocodone-acetaminophen [hydrocodone-acetaminophen] 1 TABLET tablet 1 tab PO Q6H PRN PRN (Reason: Pain) 3 Days Qty: 10 0RF cephalexin [cephalexin] 500 MG capsule 500 mg PO Q6 Qty: 40 0RF Primary Care Provider: Luis Fernando Dunlap Referrals: Luis Fernando Dunlap DO [Primary Care Provider] - 3-5 Days if not improving Disposition Disposition: Home, Self Care
--- NOTE | 2023-05-06 10:11 | RAD_ITS ---
STUDY: X-RAY CHEST REASON FOR EXAM: Female, 38 years old. Chest pain TECHNIQUE: Single AP portable view of the chest. COMPARISON: Comparison is made with prior study dated December 05, 2013. FINDINGS: EKG electrodes are seen. The lungs are clear and expanded. Azygos lobe. This is a normal variant. There is no demonstrated pleural abnormality. Normal size heart. Normal mediastinum and qian. Normal visualized pulmonary arteries. Normal visualized aortic arch and descending thoracic aorta. Normal visualized thoracic spine. Normal visualized ribs, clavicles, and shoulders. There is no demonstrated abnormality of the visualized soft tissue structures of the upper abdomen. RAD/Chest 1 View (Portable) IMPRESSION: Normal x-ray examination of the chest. Electronically Signed: Bret Tsai MD at 10:26 EDT ,
[2023-05-06 10:28] LABS: Absolute Lymphocyte Count 2.75 X10^3/uL (0.83-4.51); Absolute Neutrophil Count 3.1 X10^3/uL (2.0-7.7); Basophil# 0.06 X10^3/uL; Basophil% 0.9 % (0-1); Eosinophil# 0.12 X10^3/uL; Eosinophils% 1.8 % (0-5); Hematocrit 46.1 % (37-47); Hemoglobin 14.7 g/dL (12.0-15.0); Lymphocyte # 2.75 X10^3/ul (0.83-4.51); Lymphocyte % 42.3 % (19-41); Mean Corp Hgb Conc 31.9 g/dL (32-36); Mean Corpuscular Hgb 29.9 pg (27.0-32.0); Mean Corpuscular Volume 93.9 fL (81-99); Mean Platelet Vol. 8.7 fl (6.2-12.0); Monocyte# 0.46 X10^3/uL; Monocyte% 7.1 % (0-10); NRBC Flagged by Analyzer 0 % (0-5); Neutrophil # 3.08 X10^3/uL (2.7-7.7); Neutrophil % 47.4 % (47-70); Platelet Count 315 K/mm3 (150-450); RBC Distribution Width CV 12.3 % (11.6-14.6); RBC Distribution Width SD 42.4 fl (35.1-43.9); Red Blood Count 4.91 M/mm3 (4.2-5.4); White Blood Count 6.5 K/mm3 (4.4-11.0)
[2023-05-06] MEDS: Aspirin 81 MG TAB.CHEW 324 MG PO (10:34)
[2023-05-06 10:36] LABS: Anion Gap 9 (5-15); BUN 10 mg/dL (7-18); BUN/Creat Ratio 15.3 RATIO (10-20); Calcium,Total 9.7 mg/dL (8.5-10.1); Chloride 103 mmol/L (98-107); Creatinine, Serum 0.65 mg/dL (0.55-1.02); EST Glomerular Filtration Rate 107 mL/min (>60); Est Glom Filt Rate - Afr Amer 130 mL/min (>60); Glucose 121 mg/dL (74-106); Potassium 3.8 mmol/L (3.5-5.1); Sodium Level 137 mmol/L (136-145); Troponin-I HS (w/2H Reflex) < 3 pg/mL (3.0-54.0)
[2023-05-06 10:49] LABS: D-Dimer Quantitative (DVT/PE) 0.39 FEU/ug/m (0.27-0.49)
[2023-05-06 12:12] LABS: Reflex Troponin-HS? (from REC) Y
[2023-05-06 13:21] LABS: Troponin-I HS 4 pg/mL (3.0-54.0)
== END 2023-05-06 14:11 | disposition home or self-care (01) ==
PROVIDERS: Emergency Provider Emergency Medicine; PCP Student in an Organized Health Care Education/Training Program; Visit Provider Emergency Medicine
DX: R07.9 Chest pain, unspecified (principal); I10 Essential (primary) hypertension; E03.9 Hypothyroidism, unspecified; Z79.899 Other long term (current) drug therapy
CPT/HCPCS: 36415; 71045; 80048; 84484; 85025; 85379; 93005; 99285; A4216

== ENCOUNTER 2023-08-26 20:51 | Emergency (ER) | payer MEDICAID, SELFPAY ==
[2023-08-26 20:53] VITALS: BP 132/92; PULSE 112; RESP 16; TEMP 36.3; O2SAT 100; BMI 42.0
[2023-08-26 21:14] VITALS: BP 125/85; PULSE 93; RESP 15; O2SAT 98
--- NOTE | 2023-08-26 21:28 | CT_ITS ---
STUDY: CT BRAIN WITHOUT CONTRAST REASON FOR EXAM: Female, 38 years old. Pain RADIATION DOSAGE (If Supplied By Facility): CTDIvol = ( 44.99 ) mGy, DLP = ( 829.85 ) mGycm TECHNIQUE: Transaxial CT imaging of the brain was performed without administration of intravenous contrast material. Individualized dose optimization techniques were used for this CT. COMPARISON: No relevant priors. FINDINGS: Normal soft tissue structures. Normal calvarium. Normal size ventricles and extra-axial spaces for the patient''s age. Normal white matter tracts of the cerebral hemispheres. Normal basal ganglia and thalami. Normal brainstem. Normal cerebellum. There is no intracranial hemorrhage. There are no findings of an acute ischemic infarction. Normal visualized paranasal sinuses. CT/Brain/Head without Contrast IMPRESSION: Normal unenhanced CT scan of the brain. Electronically Signed: Kathie Herrera MD at 22:57 EDT ,
[2023-08-26] MEDS: DiphenhydrAMINE 50 MG/ML Syringe 25 MG IV (21:37)
[2023-08-26] MEDS: 0.9% Normal Saline (1000mL) 1,000 ML 999 ML IV (21:37)
[2023-08-26] MEDS: Metoclopramide 10 MG/2 ML Vial IV (21:38)
[2023-08-26] MEDS: Ketorolac 30 MG/ML Syringe 15 MG IV (21:38)
[2023-08-26 23:00] VITALS: BP 113/77; PULSE 101; RESP 14; O2SAT 95
[2023-08-26 23:27] LABS: Absolute Lymphocyte Count 2.19 X10^3/uL (0.83-4.51); Absolute Neutrophil Count 10.3 X10^3/uL (2.0-7.7); Basophil# 0.01 X10^3/uL; Basophil% 0.1 % (0-1); Hematocrit 37.6 % (37-47); Hemoglobin 12.5 g/dL (12.0-15.0); Lymphocyte # 2.19 X10^3/ul (0.83-4.51); Lymphocyte % 16.4 % (19-41); Mean Corp Hgb Conc 33.2 g/dL (32-36); Mean Corpuscular Hgb 30.6 pg (27.0-32.0); Mean Corpuscular Volume 91.9 fL (81-99); Mean Platelet Vol. 8.8 fl (6.2-12.0); Monocyte# 0.78 X10^3/uL; Monocyte% 5.8 % (0-10); NRBC Flagged by Analyzer 0 % (0-5); Neutrophil # 10.31 X10^3/uL (2.7-7.7); Neutrophil % 77.3 % (47-70); Platelet Count 375 K/mm3 (150-450); RBC Distribution Width CV 12.5 % (11.6-14.6); RBC Distribution Width SD 41.5 fl (35.1-43.9); Red Blood Count 4.09 M/mm3 (4.2-5.4); White Blood Count 13.4 K/mm3 (4.4-11.0)
[2023-08-26 23:37] LABS: Anion Gap 5 (5-15); BUN 11 mg/dL (7-18); BUN/Creat Ratio 16.5 RATIO (10-20); Calcium,Total 8.5 mg/dL (8.5-10.1); Chloride 109 mmol/L (98-107); Creatinine, Serum 0.67 mg/dL (0.55-1.02); EST Glomerular Filtration Rate 105 mL/min (>60); Est Glom Filt Rate - Afr Amer 127 mL/min (>60); Estimated Creatinine Clearance 89.16 ml/min; Glucose 159 mg/dL (74-106); Potassium 3.8 mmol/L (3.5-5.1); Sodium Level 138 mmol/L (136-145)
--- NOTE | 2023-08-26 23:38 | EDS_ITS ---
HPI History of Present Illness Chief Complaint: Hypertension [facility] Medical History Heel spur Hypertension Hypothyroidism Home Medications cephalexin 500 mg capsule 500 mg PO Q6 #40 CAPSULES 08/12/22 [Rx Last Taken Unknown] cetirizine 10 mg tablet 10 mg PO DAILY 08/12/22 [History Last Taken Unknown] fluticasone propionate 50 mcg/actuation nasal spray,suspension 2 spray intranas al DAILY 08/12/22 [History Last Taken Unknown] hydrocodone-acetaminophen 5-325mg 5mg-325mg 1 tab PO Q6H PRN PRN Pain 3 days #10 TABLETS 08/12/22 [Rx Last Taken Unknown] levothyroxine 75 mcg tablet 75 mcg PO DAILY 08/12/22 [History Last Taken Unknown] lisinopril 5 mg tablet 5 mg PO DAILY 08/12/22 [History Last Taken Unknown] omeprazole 20 mg capsule,delayed release 20 mg PO DAILY 08/12/22 [History Last Taken Unknown] phentermine 37.5 mg tablet 37.5 mg PO DAILY 08/12/22 [History Last Taken Unknown] Allergy/AdvReac Type Severity Reaction Status Date / Time amoxicillin [Amoxicillin] Allergy Hives Verified 08/26/23 20:52 Social History Smoking Status: Never smoker EXAM Physical Exam Const Vital Signs: 08/26/23 20:53 08/26/23 21:11 08/26/23 21:14 Temperature 97.4 F L Temperature Source Temporal Pulse Rate 112 H 93 Respiratory Rate 16 15 Respiratory Pattern Normal Blood Pressure 132/92 H 125/85 H Blood Pressure Mean 105 98 Pulse Ox 100 98 Oxygen Delivery Method Room Air 08/26/23 23:00 Temperature Temperature Source Pulse Rate 101 H Respiratory Rate 14 Respiratory Pattern Blood Pressure 113/77 Blood Pressure Mean 89 Pulse Ox 95 Oxygen Delivery Method Room Air MDM MDM MDM Narrative Medical decision making narrative: 38-year-old female presenting with headache. She states she might of done today. She feels like her blood pressures been up although its normalized since has been here. She states he is on lisinopril for this. 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 She is concerned she might be dehydrated. Differential includes dehydration, electrolyte normalities, headache. CBC was obtained to assess white blood cell count, hemoglobin, platelets. BMP to assess renal function and electrolytes. CBC shows leukocytosis at 13.4. Renal function electrolytes are normal. At this point patient will be she had had a steroid injection in her knee although her knees feels better she is concerned the steroid might be causing the symptoms. She feels improved after Reglan, Benadryl, Toradol. I obtained a CT of the brain which is negative. At this point patient states she feels well enough to go home. She requested a drink of water. Return precautions discussed. Impression: 1. Headache Lab Data Attestation: I reviewed the patient's lab results. Labs: Laboratory Results - last 24 hr 08/26/23 23:12 WBC 13.4 H RBC 4.09 L Hgb 12.5 Hct 37.6 MCV 91.9 MCH 30.6 MCHC 33.2 RDW Std Deviation 41.5 RDW Coeff of [place] 12.5 Plt Count 375 MPV 8.8 Immature Gran % (Auto) 0.400 Neut % (Auto) 77.3 H Lymph % (Auto) 16.4 L [place] % (Auto) 5.8 Eos % (Auto) 0.0 Baso % (Auto) 0.1 Absolute Neuts (auto) 10.3 H Absolute Lymphs (auto) 2.19 Nucleated RBC % 0 Sodium 138 Potassium 3.8 Chloride 109 H Carbon Dioxide 24.0 Anion Gap 5 BUN 11 Creatinine 0.67 Estim Creat Clear Calc 89.16 Est GFR (MDRD) Af Amer 127 Est GFR (MDRD) Non-Af 105 BUN/Creatinine Ratio 16.5 Glucose 159 H Calcium 8.5 Radiography Diagnostic Testing: Clinical Impression(s) from Imaging Studies Brain CT 08/26/23 21:28 IMPRESSION: Normal unenhanced CT scan of the brain. Electronically Signed: Kathie Herrera MD at 22:57 EDT , Discharge Plan Triage Chief Complaint: Hypertension ED Provider: Ike King Dx/Rx/DC Orders Prescriptions: No Action cetirizine 10 mg tablet 10 mg PO DAILY Patient Comments: TAKE 1 TABLET BY MOUTH DAILY phentermine 37.5 mg tablet 37.5 mg PO DAILY Patient Comments: TAKE 1 TABLET BY MOUTH ONCE DAILY FOR 30 DAYS levothyroxine 75 mcg tablet 75 mcg PO DAILY Patient Comments: Take 1 tablet by mouth once daily. In the morning before breakfast, Take on empty stomach. For Thyroid omeprazole 20 mg capsule,delayed release(DR/EC) 20 mg PO DAILY Patient Comments: Take 1 capsule by mouth daily before breakfast. 1/2 hr before meal. lisinopril 5 mg tablet 5 mg PO DAILY Patient Comments: Take 1 tablet by mouth once daily. fluticasone propionate 50 mcg/actuation spray,suspension 2 spray INTRANASAL DAILY Patient Comments: Use 2 Sprays in each nostril once daily. Rinse mouth after use. hydrocodone-acetaminophen [hydrocodone-acetaminophen] 1 TABLET tablet 1 tab PO Q6H PRN PRN (Reason: Pain) 3 Days Qty: 10 0RF cephalexin [cephalexin] 500 MG capsule 500 mg PO Q6 Qty: 40 0RF Primary Care Provider: Luis Fernando Dunlap Referrals: Luis Fernando Dunlap DO [Primary Care Provider] -
[2023-08-26 23:57] VITALS: BP 112/72; PULSE 75; RESP 16; O2SAT 98
== END 2023-08-26 23:58 | disposition home or self-care (01) ==
PROVIDERS: Emergency Provider Student in an Organized Health Care Education/Training Program; PCP Student in an Organized Health Care Education/Training Program; Visit Provider Student in an Organized Health Care Education/Training Program
DX: R51.9 Headache, unspecified (principal); R11.0 Nausea; I10 Essential (primary) hypertension; E03.9 Hypothyroidism, unspecified; Z79.899 Other long term (current) drug therapy
CPT/HCPCS: 70450; 80048; 85025; 96361; 96374; 96375; 99284; J7030; A4216

== ENCOUNTER 2024-03-11 10:54 | Emergency (ER) | payer MEDICAID, SELFPAY ==
[2024-03-11 10:54] VITALS: BP 146/103; PULSE 97; RESP 16; TEMP 36.4; O2SAT 99; BMI 39.6
--- NOTE | 2024-03-11 11:36 | EDS_ITS ---
HPI History of Present Illness Chief Complaint: Dental Informant: patient Onset/Context/Timing Onset: Days (5) Context: Gradual Onset Timing: Continuous Quality: Aching, burning, throbbing Location: Left lower third molar Worsened by: Nothing Relieved by: - (Nothing) Associated Symptoms Assocated Symptom - Dental: jaw swelling; Negative for fever, face swelling, cold sensitivity or hot sensitivity Narrative Narrative: Patient presents with left lower dental pain that has been getting worse over the past 5 days. Patient states she had a recent dental extraction and her pain has been constant since that time. Patient describes it as aching, burning, and throbbing. Patient states it is over the left lower molar area. Patient states nothing makes it worse and nothing makes it better. Patient states she has been on clindamycin and [place] with minimal improvement. Patient admits to some swelling of her jaw. Patient denies any facial swelling. Patient denies any fevers or chills. Patient denies any hot or cold sensitivity. [facility] Medical History Heel spur Hypertension Hypothyroidism Home Medications cephalexin 500 mg capsule 500 mg PO Q6 #40 CAPSULES 08/12/22 [Rx Last Taken Unknown] cetirizine 10 mg tablet 10 mg PO DAILY 08/12/22 [History Last Taken Unknown] fluticasone propionate 50 mcg/actuation nasal spray,suspension 2 spray intranasal DAILY 08/12/22 [History Last Taken Unknown] levothyroxine 75 mcg tablet 75 mcg PO DAILY 08/12/22 [History Last Taken Unknown] lisinopril 5 mg tablet 5 mg PO DAILY 08/12/22 [History Last Taken Unknown] omeprazole 20 mg capsule,delayed release 20 mg PO DAILY 08/12/22 [History Last Taken Unknown] phentermine 37.5 mg tablet 37.5 mg PO DAILY 08/12/22 [History Last Taken Unknown] hydrocodone-acetaminophen 5-325mg 5mg-325mg 1 tab PO Q6H PRN PRN Pain 3 days #10 TABLETS 03/11/24 [Rx Last Taken Unknown] Allergy/AdvReac Type Severity Reaction Status Date / Time amoxicillin [Amoxicillin] Allergy Hives Verified 03/11/24 10:56 Surgical History Hx of knee surgery Social History Smoking Status: Never smoker ROS ROS ED Constitutional Constitutional ED: Denies chills or fever(s) Eyes Eyes: Reports blurry vision left (Chronic); Denies change in vision ENT ENT ED: Reports ear pain left; Denies rhinorrhea or sore throat Cardiovascular Cardiovascular: Denies chest pain or palpitations Respiratory/Chest Respiratory/Chest: Denies cough or dyspnea Gastrointestinal Gastrointestinal: Reports nausea; Denies vomiting Genitourinary Genitourinary ED: Denies dysuria or hematuria Musculoskeletal Musculoskeletal: Denies back pain or neck pain Integumentary Denies abscess or rash Neurologic Neurologic: Reports headache(s); Denies weakness Allergic/Immunologic Allergic/Immunologic ED: Denies mouth swelling or urticaria EXAM Physical Exam Const Vital Signs: 03/11/24 10:54 Temperature 97.6 F L Temperature Source Temporal Pulse Rate 97 Respiratory Rate 16 Blood Pressure 146/103 H Blood Pressure Mean 117 Pulse Ox 99 Oxygen Delivery Method Room Air Positive well nourished, well developed and obese General Appearance ED: well developed and NAD Nutritional Appearance: obese HEENT HEENT Narrative: Oral mucosa is pink and moist. There is a dental extraction site noted over the left lower third molar area. There is some mild gingival edema. There does appear to be a clot in the socket. There is no bleeding noted. Oropharynx is clear. Airway is patent. Neck is supple. Trachea is midline. No JVD. Mouth ED: Yes oral and palatal mucosa normal Mouth: oral and palatal mucosa normal Teeth and Gingiva: gingiva abnormal Positive for gingival edema Throat: posterior oropharynx normal Neck supple and no JVD General: Negative for anterior neck swelling, tenderness or submandibular swelling Resp normal respiratory effort and clear to auscultation bilaterally Cardio regular rate and regular rhythm GI non-tender and non-distended Neuro oriented x3, CN's II-XII intact bilaterally, moves all extremities, no focal motor deficits and no sensory deficits noted Sensorium / Orientation: alert Motor Exam: strength 5/5 throughout Psych mental status grossly normal MDM MDM MDM Narrative Medical decision making narrative: Dry socket paste was placed in the extraction site. Patient was instructed to use gauze to keep the dry socket paste in place. Patient was instructed to avoid eating on that side of her mouth. Patient was instructed to continue her clindamycin as prescribed. Patient was given a prescription for a short course of [place]. Patient states she has an appointment with her dentist for follow-up in 2 days. Patient understood and was agreeable with the plan. All questions were answered. Discharge Plan Triage Chief Complaint: Dental ED Provider: Yaniv Comer Dx/Rx/DC Orders Clinical Impression: Odontalgia, Status post tooth extraction Instructions: ED Dental Pain Prescriptions: Continued hydrocodone-acetaminophen 1 TABLET tablet 1 tab PO Q6H PRN PRN (Reason: Pain) 3 Days Qty: 10 0RF No Action cetirizine 10 mg tablet 10 mg PO DAILY Patient Comments: TAKE 1 TABLET BY MOUTH DAILY phentermine 37.5 mg tablet 37.5 mg PO DAILY Patient Comments: TAKE 1 TABLET BY MOUTH ONCE DAILY FOR 30 DAYS levothyroxine 75 mcg tablet 75 mcg PO DAILY Patient Comments: Take 1 tablet by mouth once daily. In the morning before breakfast, Take on empty stomach. For Thyroid omeprazole 20 mg capsule,delayed release(DR/EC) 20 mg PO DAILY Patient Comments: Take 1 capsule by mouth daily before breakfast. 1/2 hr before meal. lisinopril 5 mg tablet 5 mg PO DAILY Patient Comments: Take 1 tablet by mouth once daily. fluticasone propionate 50 mcg/actuation spray,suspension 2 spray INTRANASAL DAILY Patient Comments: Use 2 Sprays in each nostril once daily. Rinse mouth after use. cephalexin [cephalexin] 500 MG capsule 500 mg PO Q6 Qty: 40 0RF Primary Care Provider: Luis Fernando Dunlap Referrals: Luis Fernando Dunlap, DO [Primary Care Provider] - 5-7 Days Dentist,Your [STAFF PHYSICIAN] - Keep Roland appointment Disposition Disposition: Home, Self Care
[2024-03-11 13:06] VITALS: BP 129/86; PULSE 89; RESP 16; TEMP 36.1; O2SAT 98
== END 2024-03-11 13:07 | disposition home or self-care (01) ==
PROVIDERS: Emergency Provider Emergency Medicine; PCP Student in an Organized Health Care Education/Training Program; Visit Provider Emergency Medicine
DX: K08.89 Other specified disorders of teeth and supporting structures (principal); I10 Essential (primary) hypertension; Z79.899 Other long term (current) drug therapy; E03.9 Hypothyroidism, unspecified
CPT/HCPCS: 41800; 64999; 99282

== ENCOUNTER 2024-05-16 08:14 | Emergency (ER) | payer MEDICAID, SELFPAY ==
[2024-05-16 08:15] VITALS: BP 133/94; PULSE 96; RESP 17; TEMP 36.2; O2SAT 98; BMI 38.9
--- NOTE | 2024-05-16 08:44 | EDS_ITS ---
HPI History of Present Illness Chief Complaint: Numb/Ting Informant: patient Onset/Context/Timing Onset: Days (3) Context: Gradual Onset Timing: Continuous Quality: Tingling Location: Bilateral hands and right forearm Worsened by: Nothing Relieved by: Nothing Narrative Narrative: Patient presents with paresthesias over both hands that has been getting worse over the past 3 days. Patient states the tingling goes up to her right elbow but is localized to the left hand. Patient states that is getting progressively worse. Patient denies any trauma or injury. Patient states nothing makes her symptoms better and nothing makes them worse. Patient denies any fevers or chills. Patient admits to mild headache. Patient denies any neck pain. [facility] Medical History Hypothyroidism Hypertension Heel spur Home Medications ?Medication ?Instructions ?Recorded ?Last Taken ?Type cephalexin 500 mg capsule 500 mg PO Q6 #40 CAPSULES 08/12/22 Unknown Rx cetirizine 10 mg tablet 10 mg PO DAILY 08/12/22 Unknown History fluticasone propionate 50 2 spray intranasal DAILY 08/12/22 Unknown History mcg/actuation nasal spray,suspension levothyroxine 75 mcg tablet 75 mcg PO DAILY 08/12/22 Unknown History lisinopril 5 mg tablet 5 mg PO DAILY 08/12/22 Unknown History omeprazole 20 mg capsule,delayed 20 mg PO DAILY 08/12/22 Unknown History release phentermine 37.5 mg tablet 37.5 mg PO DAILY 08/12/22 Unknown History hydrocodone-acetaminophen 5-325mg 1 tab PO Q6H PRN PRN Pain 3 days 03/11/24 Unknown Rx 5mg-325mg #10 TABLETS naproxen 500 mg tablet (Naprosyn) 500 mg PO BID PRN pain #20 tabs 05/16/24 Unknown Rx Allergy/AdvReac Type Severity Reaction Status Date / Time amoxicillin (Amoxicillin) Allergy Hives Verified 03/11/24 10:56 Surgical History Hx of knee surgery Social History Smoking Status: Never smoker ROS ROS ED Constitutional Constitutional ED: Denies chills or fever(s) Eyes Eyes: Denies blurry vision or change in vision ENT ENT ED: Denies rhinorrhea or sore throat Cardiovascular Cardiovascular: Reports chest pain; Denies palpitations Respiratory/Chest Respiratory/Chest: Denies cough or dyspnea Gastrointestinal Gastrointestinal: Denies nausea or vomiting Genitourinary Genitourinary ED: Denies dysuria or hematuria Musculoskeletal Musculoskeletal: Reports back pain; Denies neck pain Integumentary Denies abscess or rash Neurologic Neurologic: Reports paresthesias RUE and LUE; Denies headache(s) or weakness Allergic/Immunologic Allergic/Immunologic ED: Denies mouth swelling or urticaria EXAM Physical Exam Const Vital Signs: 05/16/24 08:15 Temperature 97.1 F L Temperature Source Temporal Pulse Rate 96 Respiratory Rate 17 Blood Pressure 133/94 H Blood Pressure Mean 107 Pulse Ox 98 Oxygen Delivery Method Room Air Positive well nourished and well developed General Appearance ED: well developed and NAD HEENT Reports moist mucous membranes Neck supple and no JVD Resp normal respiratory effort and clear to auscultation bilaterally Cardio regular rate and regular rhythm GI non-tender and non-distended Palpation: soft Extremity normal to inspection General Extremety ED: Negative for edema or tenderness General Extremity: Negative for edema Neuro oriented x3 and CN's II-XII intact bilaterally Neuro Narrative: There is some tingling and mild decrease sensation over the radial, median, and ulnar areas bilaterally and along the dorsal aspect of the right forearm. Strength is 5/5 in the radial, median, and ulnar areas. Radial pulses are equal bilaterally. There is no loss of pulse with abduction and external rotation of the upper extremities bilaterally. Sensorium / Orientation: alert Motor Exam: strength 5/5 throughout Psych mental status grossly normal MDM MDM MDM Narrative Medical decision making narrative: Differential diagnosis includes carpal tunnel, cubital tunnel, peripheral neuropathy, cervical radiculopathy, cervical myelopathy, stroke, electrolyte abnormality, and anxiety. CT scan of the brain will be obtained to assess for stroke and intracranial bleeding. CT scan of the cervical spine will be obtained to assess for neuroforaminal stenosis and cervical spinal stenosis. CBC will be obtained to assess for leukocytosis and anemia. Basic metabolic profile will be obtained to assess for electrolyte abnormality and renal function. Lab Data Attestation: I reviewed the patient's lab results. Lab results narrative: CBC was reviewed and was within normal limits. Basic metabolic profile was reviewed and was within normal limits. Labs: Laboratory Results - last 24 hr 05/16/24 09:15 WBC 5.6 RBC 4.53 Hgb 13.6 Hct 41.1 MCV 90.7 MCH 30.0 MCHC 33.1 RDW Std Deviation 40.2 RDW Coeff of [place] 12.2 Plt Count 335 MPV 8.3 Immature Gran % (Auto) 4.300 H Neut % (Auto) 62.3 Lymph % (Auto) 24.4 [place] % (Auto) 6.2 Eos % (Auto) 1.4 Baso % (Auto) 1.4 H Absolute Neuts (auto) 3.5 Absolute Lymphs (auto) 1.37 Nucleated RBC % 0 Sodium 139 Potassium 3.9 Chloride 107 Carbon Dioxide 29.0 Anion Gap 3 L BUN 7 Creatinine 0.62 Estim Creat Clear Calc 130.79 Est GFR (MDRD) Af Amer 136 Est GFR (MDRD) Non-Af 112 BUN/Creatinine Ratio 11.2 Glucose 105 Calcium 9.4 Radiography Diagnostic Testing: Clinical Impression(s) from Imaging Studies Brain CT 05/16/24 09:05 IMPRESSION: Normal unenhanced CT scan of the brain. Electronically Signed: Bret Tsai MD at 9:39 EDT , Cervical Spine CT 05/16/24 09:06 IMPRESSION: There is straightening of the normal cervical lordosis. Electronically Signed: Bret Tsai MD at 9:40 EDT , CT scan of the brain was obtained. There is no acute intracranial abnormality. This was interpreted by the radiologist and was also independently reviewed by myself. CT scan of the cervical spine was obtained. There is straightening of the normal cervical lordosis. There is no acute fracture or spondylolisthesis noted. There is no stenosis of the central canal or neural foramina. This was interpreted by the radiologist and was independently reviewed by myself. Treatment and Re-Evaluation :: Patient was advised of her findings. Patient was advised that this could be peripheral neuropathy or compression neuropathy. Patient was instructed to follow-up with her primary care physician in 5 to 7 days. Patient was advised that she may need nerve conduction testing or EMG testing as an outpatient. Patient was given a prescription for Naprosyn. Patient was given a cock up wrist splint for her bilateral wrists. Patient was instructed to return if worse in any way. Patient understood and was agreeable with the plan. All questions were answered. Discharge Plan Triage Chief Complaint: Numb/Ting ED Provider: Yaniv Comer Dx/Rx/DC Orders Clinical Impression: Paresthesias, Elevated blood pressure reading Instructions: ED Neuropathy, Peripheral, ED Paraesthesias Prescriptions: New naproxen [Naprosyn] 500 mg tablet 500 mg PO BID PRN (Reason: pain) Qty: 20 0RF No Action cetirizine 10 mg tablet 10 mg PO DAILY Patient Comments: TAKE 1 TABLET BY MOUTH DAILY phentermine 37.5 mg tablet 37.5 mg PO DAILY Patient Comments: TAKE 1 TABLET BY MOUTH ONCE DAILY FOR 30 DAYS levothyroxine 75 mcg tablet 75 mcg PO DAILY Patient Comments: Take 1 tablet by mouth once daily. In the morning before breakfast, Take on empty stomach. For Thyroid omeprazole 20 mg capsule,delayed release(DR/EC) 20 mg PO DAILY Patient Comments: Take 1 capsule by mouth daily before breakfast. 1/2 hr before meal. lisinopril 5 mg tablet 5 mg PO DAILY Patient Comments: Take 1 tablet by mouth once daily. fluticasone propionate 50 mcg/actuation spray,suspension 2 spray INTRANASAL DAILY Patient Comments: Use 2 Sprays in each nostril once daily. Rinse mouth after use. cephalexin [cephalexin] 500 MG capsule 500 mg PO Q6 Qty: 40 0RF hydrocodone-acetaminophen 1 TABLET tablet 1 tab PO Q6H PRN PRN (Reason: Pain) 3 Days Qty: 10 0RF Primary Care Provider: Luis Fernando Dunlap Referrals: Luis Fernando Dunlap DO [Primary Care Provider] - 5-7 Days Print Language: Czech Disposition Disposition: Home, Self Care
--- NOTE | 2024-05-16 09:05 | CT_ITS ---
STUDY: CT BRAIN WITHOUT CONTRAST REASON FOR EXAM: Female, 39 years old. Paresthesias RADIATION DOSAGE (If Supplied By Facility): CTDIvol = ( 44.99 ) mGy, DLP = ( 779.24 ) mGycm TECHNIQUE: Transaxial CT imaging of the brain was performed without administration of intravenous contrast material. Individualized dose optimization techniques were used for this CT. COMPARISON: Comparison is made with prior study August 26, 2023. FINDINGS: Normal soft tissue structures. There is hyperostosis frontalis internus. Normal size ventricles and extra-axial spaces for the patient''s age. Normal white matter tracts of the cerebral hemispheres. Normal basal ganglia and thalami. Normal brainstem. Normal cerebellum. There is no intracranial hemorrhage. There are no findings of an acute ischemic infarction. Normal visualized paranasal sinuses. CT/Brain/Head without Contrast IMPRESSION: Normal unenhanced CT scan of the brain. Electronically Signed: Bret Tsai MD at 9:39 EDT ,
--- NOTE | 2024-05-16 09:06 | CT_ITS ---
STUDY: CT CERVICAL SPINE WITHOUT CONTRAST REASON FOR EXAM: Female, 39 years old. Injury/Pain RADIATION DOSAGE (If Supplied By Facility): CTDIvol = ( 29.82 ) mGy, DLP = ( 649.75 ) mGycm TECHNIQUE: High resolution transaxial imaging was performed without contrast material. Sagittal and coronal images were reconstructed. Individualized dose optimization techniques were used for this CT. COMPARISON: None FINDINGS: Normal craniovertebral junction. Normal anterior atlantoaxial articulation. Normal odontoid process. There is straightening of the normal cervical lordosis. Normal vertebral bodies and posterior osseous elements. C2-3: Normal endplates. Normal disc height and morphology. Normal central canal and intervertebral neuroforamina. C3-4: Normal endplates. Normal disc height and morphology. Normal central canal and intervertebral neuroforamina. C4-5: Normal endplates. Normal disc height and morphology. Normal central canal and intervertebral neuroforamina. C5-6: Normal endplates. Normal disc height and morphology. Normal central canal and intervertebral neuroforamina. C6-7: Normal endplates. Normal disc height and morphology. Normal central canal and intervertebral neuroforamina. C7-T1: Normal endplates. Normal disc height and morphology. Normal central canal and intervertebral neuroforamina. Normal visualized soft tissue structures. CT/Spine Cervical without Contras IMPRESSION: There is straightening of the normal cervical lordosis. Electronically Signed: Bret Tsai MD at 9:40 EDT ,
[2024-05-16 09:28] LABS: Absolute Lymphocyte Count 1.37 X10^3/uL (0.83-4.51); Absolute Neutrophil Count 3.5 X10^3/uL (2.0-7.7); Basophil# 0.08 X10^3/uL; Basophil% 1.4 % (0-1); Eosinophil# 0.08 X10^3/uL; Eosinophils% 1.4 % (0-5); Hematocrit 41.1 % (37-47); Hemoglobin 13.6 g/dL (12.0-15.0); Lymphocyte # 1.37 X10^3/ul (0.83-4.51); Lymphocyte % 24.4 % (19-41); Mean Corp Hgb Conc 33.1 g/dL (32-36); Mean Corpuscular Volume 90.7 fL (81-99); Mean Platelet Vol. 8.3 fl (6.2-12.0); Monocyte# 0.35 X10^3/uL; Monocyte% 6.2 % (0-10); NRBC Flagged by Analyzer 0 % (0-5); Neutrophil % 62.3 % (47-70); Platelet Count 335 K/mm3 (150-450); RBC Distribution Width CV 12.2 % (11.6-14.6); RBC Distribution Width SD 40.2 fl (35.1-43.9); Red Blood Count 4.53 M/mm3 (4.2-5.4); White Blood Count 5.6 K/mm3 (4.4-11.0)
[2024-05-16 09:43] LABS: Anion Gap 3 (5-15); BUN 7 mg/dL (7-18); BUN/Creat Ratio 11.2 RATIO (10-20); Calcium,Total 9.4 mg/dL (8.5-10.1); Chloride 107 mmol/L (98-107); Creatinine, Serum 0.62 mg/dL (0.55-1.02); EST Glomerular Filtration Rate 112 mL/min (>60); Est Glom Filt Rate - Afr Amer 136 mL/min (>60); Estimated Creatinine Clearance 130.79 ml/min; Glucose 105 mg/dL (74-106); Potassium 3.9 mmol/L (3.5-5.1); Sodium Level 139 mmol/L (136-145)
[2024-05-16 10:14] VITALS: BP 128/86; PULSE 75; RESP 18; O2SAT 98
[2024-05-16 10:24] VITALS: BP 128/86; PULSE 75; RESP 18; TEMP 36.3; O2SAT 98
== END 2024-05-16 10:24 | disposition home or self-care (01) ==
PROVIDERS: Emergency Provider Emergency Medicine; PCP Student in an Organized Health Care Education/Training Program; Visit Provider Emergency Medicine
DX: R20.2 Paresthesia of skin (principal); R03.0 Elevated blood-pressure reading, without diagnosis of hypertension; E03.9 Hypothyroidism, unspecified; I10 Essential (primary) hypertension
CPT/HCPCS: 70450; 72125; 80048; 85025; 99284; A4216

== ENCOUNTER 2024-10-15 22:29 | Emergency (ER) | payer MEDICAID, SELFPAY ==
[2024-10-15 22:30] VITALS: BP 134/95; PULSE 100; RESP 15; TEMP 36.1; O2SAT 99; BMI 41.3
--- NOTE | 2024-10-15 22:52 | EDS_ITS ---
HPI History of Present Illness Chief Complaint: Upper Extremity Injury Informant: patient Narrative Narrative: Patient is a 39-year-old female with past medical history of hypertension and hypothyroidism. Patient states over the last months she has had pain along the left lateral elbow. She states has been no trauma and she reports she is right- hand dominant. She denies any excessive activity. She states the pain seems to be radiating down the left forearm and is worse with motion. She states she has concern for a blood clot. She denies any history of DVT/PE she denies any recent travel surgery or hormone use. However as the pain has persisted and now worsened she presents for evaluation [facility] Medical History Hypothyroidism Hypertension Heel spur Home Medications ?Medication ?Instructions ?Recorded ?Last Taken ?Type cetirizine 10 mg tablet 10 mg PO DAILY 08/12/22 Unknown History fluticasone propionate 50 2 spray intranasal DAILY 08/12/22 Unknown History mcg/actuation nasal spray,suspension levothyroxine 75 mcg tablet 75 mcg PO DAILY 08/12/22 Unknown History lisinopril 5 mg tablet 5 mg PO DAILY 08/12/22 Unknown History omeprazole 20 mg capsule,delayed 20 mg PO DAILY 08/12/22 Unknown History release phentermine 37.5 mg tablet 37.5 mg PO DAILY 08/12/22 Unknown History prednisone 20 mg tablet 40 mg (2 x 20 mg) PO DAILY 5 days 10/15/24 Unknown Rx #10 tabs Allergy/AdvReac Type Severity Reaction Status Date / Time amoxicillin (Amoxicillin) Allergy Hives Verified 10/15/24 22:30 Surgical History Hx of knee surgery Social History Smoking Status: Never smoker ROS ROS ED Constitutional Constitutional ED: Denies chills or fever(s) ENT ENT ED: Denies sore throat Cardiovascular Cardiovascular: Denies chest pain Respiratory/Chest Respiratory/Chest: Denies cough or dyspnea Gastrointestinal Gastrointestinal: Denies abdominal pain, diarrhea, nausea or vomiting Genitourinary Genitourinary ED: Denies dysuria Musculoskeletal Musculoskeletal: Reports other Details: Positive left elbow pain Integumentary Denies rash Neurologic Neurologic: Denies headache(s), paresthesias or weakness Hematologic/Lymphatic Hematologic/Lymphatic: Denies easy bleeding or easy bruising EXAM Physical Exam Const Vital Signs: 10/15/24 22:30 Temperature 97 F L Temperature Source Temporal Pulse Rate 100 Respiratory Rate 15 Blood Pressure 134/95 H Blood Pressure Mean 108 Pulse Ox 99 Oxygen Delivery Method Room Air Positive well nourished, well developed and obese General Appearance ED: well developed Nutritional Appearance: obese HEENT HEENT Narrative: Normocephalic atraumatic Eyes PERRL and EOMs intact bilaterally Neck supple Resp normal respiratory effort and clear to auscultation bilaterally Cardio regular rate and regular rhythm Extremity Extremity Narrative: Left upper extremity is neurovascularly intact; AIN/PIN are intact and normal. No obvious bony deformity or joint effusion. There is mild soft tissue swelling without overlying erythema or warmth around the lateral epicondyle. Pain does worsen with motion. There is no findings to suggest bursitis. Compartments are soft and compressible going against compartment syndrome. Remainder of exam is normal Neuro oriented x3 and CN's II-XII intact bilaterally Sensorium / Orientation: alert Psych mental status grossly normal Skin no rashes or lesions noted MDM MDM MDM Narrative Medical decision making narrative: Patient arrived to the ER slightly hypertensive but has a past medical history of this. She reported a 1 month history of persistent pain in her left elbow that is worse with motion. She states that there was no trauma and she denies any history of DVT/PE. By exam there is reproducible pain with palpation along the lateral epicondyle consistent with lateral epicondylitis. She does not have overlying erythema or warmth to suggest cellulitis or abscess there is no signs of bursitis or joint effusion. In order to rule out potential bone cyst or atypical fracture and x-ray was performed. This revealed no acute findings. The patient's compartments are soft and compressible going against compartment syndrome. The patient does not have risk factors for DVT/PE other than a family history but she has concern for it. I attempted to order a venous duplex of the upper extremity but is not available at this time of night. I have low concern for upper extremity DVT and therefore will not provide Lovenox at this time but she will be given an outpatient order for a upper extremity DVT as an outpatient. However as her history and exam indicate this is most likely lateral epicondylitis and not infectious or bony or vascular there is no need for further workup and she is otherwise safe for discharge History & Record Review Discussion w/independent historian: Patient Radiography Diagnostic Testing: Left elbow x-ray as interpreted by the emergency medicine physician reveals no acute fracture dislocation or joint effusion Discharge Plan Triage Chief Complaint: Upper Extremity Injury ED Provider: Kennedy Albert Dx/Rx/DC Orders Clinical Impression: Epicondylitis, lateral, left, Hypertension, Hypothyroidism Instructions: Understanding Lateral Epicondylitis Prescriptions: New prednisone 20 mg tablet 40 mg PO DAILY 5 Days Qty: 10 0RF No Action cetirizine 10 mg tablet 10 mg PO DAILY Patient Comments: TAKE 1 TABLET BY MOUTH DAILY phentermine 37.5 mg tablet 37.5 mg PO DAILY Patient Comments: TAKE 1 TABLET BY MOUTH ONCE DAILY FOR 30 DAYS levothyroxine 75 mcg tablet 75 mcg PO DAILY Patient Comments: Take 1 tablet by mouth once daily. In the morning before breakfast, Take on empty stomach. For Thyroid omeprazole 20 mg capsule,delayed release(DR/EC) 20 mg PO DAILY Patient Comments: Take 1 capsule by mouth daily before breakfast. 1/2 hr before meal. lisinopril 5 mg tablet 5 mg PO DAILY Patient Comments: Take 1 tablet by mouth once daily. fluticasone propionate 50 mcg/actuation spray,suspension 2 spray INTRANASAL DAILY Patient Comments: Use 2 Sprays in each nostril once daily. Rinse mouth after use. Other Ambulatory Orders: Venous Duplex US, Unilateral (Stat) Facility: [facility] - Location: [facility] Ordered By: Dr. Kennedy Albert Primary Care Provider: Luis Fernando Dunlap Referrals: Luis Fernando Dunlap, [Primary Care Provider] - Activity Restrictions/Additional Instructions: Please obtain your outpatient venous duplex of the left arm to rule out blood clot/DVT. Your exam and history however indicate this is more of a muscular/tendon inflammation. Therefore take the prescribed prednisone as directed to help resolve this. If you have any further concerns or worsening of symptoms please return the hospital for repeat evaluation Print Language: Hebrew Disposition Disposition: Home, Self Care
--- NOTE | 2024-10-15 23:00 | RAD_ITS ---
STUDY: X-RAY - LEFT ELBOW REASON FOR EXAM: Female, 39 years old. Pain TECHNIQUE: 3 view(s) of the elbow. COMPARISON: None. FINDINGS: Normal visualized humerus, radius and ulna. Normal radiocapitellar and ulnotrochlear articulations. The soft tissue structures are unremarkable. There is no demonstrated fracture. RAD/Elbow min 3 Views IMPRESSION: Normal x-ray examination of the elbow. Electronically Signed: Ruben Singh MD at 23:54 EST ,
[2024-10-15 23:19] VITALS: BP 107/31; PULSE 94; RESP 16; TEMP 36.6; O2SAT 100
== END 2024-10-15 23:24 | disposition home or self-care (01) ==
PROVIDERS: Emergency Provider Emergency Medicine; PCP Student in an Organized Health Care Education/Training Program; Visit Provider Emergency Medicine
DX: M77.12 Lateral epicondylitis, left elbow (principal); E03.9 Hypothyroidism, unspecified; I10 Essential (primary) hypertension; Z79.890 Hormone replacement therapy; Z79.899 Other long term (current) drug therapy
CPT/HCPCS: 73080; 99282

== ENCOUNTER → 2024-10-16 | Outpatient (CLI) | payer MEDICAID, SELFPAY ==
--- NOTE | 2024-10-16 14:56 | VDUE_ITS ---
Reason For Study: Left arm swelling Left Proximal Left jugular vein is spontaneous, widely patent, phasic, with no intraluminal echogenicity noted. Left subclavian vein is spontaneous, widely patent, phasic, with no intraluminal echogenicity noted. Left Arm Left axillary vein is spontaneous, patent, phasic, competent, compressible and demonstrates augmentation. Left brachial vein is compressible. Left cephalic vein is compressible. Left basilic vein is compressible. Left Lower Arm Left radial vein is compressible. Left ulnar vein is compressible. Patient Safety Preliminary report given to PCP: Dr. Dunlap, patient seen in ED 10/15/2024. VL/Venous Duplex US, Unilateral Interpretation Summary Deep veins of the left upper extremity are patent and compressible segmentally. There is no evidence of deep vein thrombosis. The superficial veins of the left upper extremity, the basilic and cephalic vein, are patent and compressible. There is no evidence of left upper extremity superficial thrombophlebitis involving the veins imaged. Ordering Physician: Kennedy Albert Referring Physician: Luis Fernando Dunlap Performed By: Tiffanie Odell RVT ???
== END | disposition home or self-care (01) ==
LOC: CVS 14:55
PROVIDERS: PCP Student in an Organized Health Care Education/Training Program; Referring Provider Emergency Medicine; Visit Provider Emergency Medicine
DX: M79.89 Other specified soft tissue disorders (principal)
CPT/HCPCS: 93971

== ENCOUNTER 2024-12-01 19:21 | Emergency (ER) | payer MEDICAID, SELFPAY ==
[2024-12-01 19:22] VITALS: BP 148/100; PULSE 111; RESP 18; TEMP 37.7; O2SAT 96; BMI 40.6
--- NOTE | 2024-12-01 19:53 | EKG12_ITS ---
Test Reason : DYSRHYTHMIA Blood Pressure : */* mmHG Vent. Rate : 100 BPM Atrial Rate : 100 BPM P-R Int : 170 ms QRS Dur : 74 ms QT Int : 338 ms P-R-T Axes : 58 49 28 degrees QTcB Int : 436 ms Normal sinus rhythm Normal ECG Confirmed by PETE NOLEN, SANTA ([id number]), associate entertainment editor RYANNE CHIN ([id number]) on 12/03/2024 2:00:01 PM Referred By: Confirmed By: SANTA FREEMAN MD
--- NOTE | 2024-12-01 20:00 | EX.ED.DYSGE1 ---
HPI History of Present Illness Chief Complaint: General Illness Narrative Narrative: Patient is a 39-year-old female past medical history hypothyroidism, hypertension who presents to the emergency department with chief complaint of headache, diffuse bodyaches, cough and not feeling well for the past day. Patient states that she started to become ill yesterday and developed a headache that progressively worsened which prompted her to come here for further evaluation management. Patient denies recent sick contacts. Patient states that since she was taking [id number] medication and this was not helping with symptoms she came here for further evaluation management. 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 Home Medications ?Medication ?Instructions ?Recorded ?Last Taken ?Type cetirizine 10 mg tablet 10 mg PO DAILY 08/12/22 Unknown History fluticasone propionate 50 2 spray intranasal DAILY 08/12/22 Unknown History mcg/actuation nasal spray,suspension levothyroxine 75 mcg tablet 75 mcg PO DAILY 08/12/22 Unknown History lisinopril 5 mg tablet 5 mg PO DAILY 08/12/22 Unknown History omeprazole 20 mg capsule,delayed 20 mg PO DAILY 08/12/22 Unknown History release phentermine 37.5 mg tablet 37.5 mg PO DAILY 08/12/22 Unknown History prednisone 20 mg tablet 40 mg (2 x 20 mg) PO DAILY 5 days 10/15/24 Unknown Rx #10 tabs ondansetron 4 mg disintegrating 4 mg PO Q6H PRN nausea and 12/01/24 Unknown Rx tablet vomiting #20 tabs oseltamivir 75 mg capsule (Tamiflu) 75 mg PO Q12H 5 days #10 caps 12/01/24 Unknown Rx Allergy/AdvReac Type Severity Reaction Status Date / Time amoxicillin (Amoxicillin) Allergy Hives Verified 12/01/24 19:22 Surgical History Hx of knee surgery Social History Smoking Status: Never smoker ROS ROS ED ROS Narrative Constitutional: Complains of headache as noted above as well as fever Eyes: Denies change in vision double vision blurry vision Cardiovascular: Denies chest pain or palpitations Respiratory: Complains of cough as noted above denies shortness of breath Abdomen: Denies abdominal pain nausea vomit diarrhea : Denies any urinary symptoms Neurological: Denies numbness, weakness, tingling Musculoskeletal: Denies back pain Skin: Denies any rashes or lesions EXAM Physical Exam Narrative Exam Narrative: General: Patient lying in bed rest comfortably did not appear to be in acute distress Head: Atraumatic, normocephalic Eyes: PERRL bilateral, EOMI bilateral, no conjunctival injection noted Neck: Soft, supple, trachea midline Cardiovascular: Regular in rhythm no murmurs gallops rubs noted Respiratory: Clear to auscultation bilaterally no rales rhonchi or wheezes noted Abdomen: Soft, nondistended, nontender to palpation, bowel sounds present x 4 Extremities: +5/5 strength noted in the bilateral upper and lower extremities, radial pulses +2/4 in the bilateral extremities Neurological: Patient following commands and that she was at [facility] years 2023. NIH is 0 GCS 15 Skin: Warm, dry, intact no rashes or lesions noted Const Vital Signs: 12/01/24 19:22 12/01/24 19:32 12/01/24 21:21 Temperature 100 F H Temperature Source Oral Pulse Rate 111 H 90 Respiratory Rate 18 18 Respiratory Effort Normal Respiratory Pattern Normal Blood Pressure 148/100 H 108/73 Blood Pressure Mean 116 84 Pulse Ox 96 95 Oxygen Delivery Method Room Air Room Air MDM MDM MDM Narrative Medical decision making narrative: Patient is a 39-year-old female who presents to the emergency department with a chief complaint of headache, diffuse bodyaches, fever and not feeling well. On the differential diagnose includes Melamin to upper respiratory infection secondary to viral etiology, pneumonia. Once workup is obtained reviewed she will be reevaluated. Patient be given IV fluids, Reglan, Toradol. Patient's urinalysis reviewed and showed no evidence of infection negative nitrites 25 leukocyte esterase 0 white cells with 1+ bacteria she does not have any urinary symptoms. Patient's chest x-ray reviewed by myself and by radiology showed no acute cardiopulmonary processes. Patient tested positive for influenza A. Patient's EKG reviewed and independently interpreted by myself showed sinus rhythm with a rate of 100 bpm. On reevaluation the patient she states that her headache is improved however is noting her pain is a 5 out of 10 therefore she will be given more Tylenol and Benadryl and be reevaluated. Reevaluation the patient she feels much improved she would like to go home at this point time. Patient states that her symptoms started yesterday and will be given first dose of Tamiflu here prescription will be sent to pharmacy. She is encouraged to continue hydration. Prescription for Zofran will also be sent to the pharmacy. She is encouraged to follow with her primary care physician and if anything worsens or any other concerns she should return to the emergency department. She is agreeable this plan she would like to go home at this point time all question concerns answered she was discharged home in stable condition. Lab Data Labs: Laboratory Results - last 24 hr 12/01/24 20:55 Urine Color Yellow Urine Clarity Clear Urine pH 5.0 Ur Specific [place] 1.015 Urine Protein 15 H Urine Glucose (UA) Normal Urine Ketones Negative Urine Occult Blood 150 H Urine Nitrite Negative Urine Bilirubin Negative Urine Urobilinogen Normal Ur Leukocyte Esterase 25 H Urine RBC 0 SEEN Urine WBC 0 SEEN Ur Squamous Epith Cells 0-5 SEEN Urine Bacteria 1+ Urine Mucus 0 SEEN Radiography Diagnostic Testing: Clinical Impression(s) from Imaging Studies Chest X-Ray 12/01/24 20:10 IMPRESSION: No acute radiographic abnormalities. Electronically Signed: Petar Ferrari MD at 20:49 EST , Discharge Plan Triage Chief Complaint: General Illness ED Provider: Missael Francois Dx/Rx/DC Orders Clinical Impression: Influenza A, Generalized body aches, Headache Prescriptions: New ondansetron 4 mg tablet,disintegrating 4 mg PO Q6H PRN (Reason: nausea and vomiting) Qty: 20 0RF oseltamivir [Tamiflu] 75 mg capsule 75 mg PO Q12H 5 Days Qty: 10 0RF No Action cetirizine 10 mg tablet 10 mg PO DAILY Patient Comments: TAKE 1 TABLET BY MOUTH DAILY phentermine 37.5 mg tablet 37.5 mg PO DAILY Patient Comments: TAKE 1 TABLET BY MOUTH ONCE DAILY FOR 30 DAYS levothyroxine 75 mcg tablet 75 mcg PO DAILY Patient Comments: Take 1 tablet by mouth once daily. In the morning before breakfast, Take on empty stomach. For Thyroid omeprazole 20 mg capsule,delayed release(DR/EC) 20 mg PO DAILY Patient Comments: Take 1 capsule by mouth daily before breakfast. 1/2 hr before meal. lisinopril 5 mg tablet 5 mg PO DAILY Patient Comments: Take 1 tablet by mouth once daily. fluticasone propionate 50 mcg/actuation spray,suspension 2 spray INTRANASAL DAILY Patient Comments: Use 2 Sprays in each nostril once daily. Rinse mouth after use. prednisone 20 mg tablet 40 mg PO DAILY 5 Days Qty: 10 0RF Primary Care Provider: Luis Fernando Dunlap Referrals: Luis Fernando Dunlap DO [Primary Care Provider] - Activity Restrictions/Additional Instructions: You tested positive for influenza A here in the emergency department. Take the Tamiflu as prescribed. Take the Zofran as prescribed. Ensure adequate hydration. Follow-up your doctor in the outpatient setting. Return with worsening symptoms or any other concerns Print Language: Wolof Disposition Disposition: Home, Self Care
[2024-12-01] MEDS: 0.9% Normal Saline (1000mL) 1,000 ML 999 ML IV ×2 (20:05→21:23)
[2024-12-01] MEDS: Ketorolac 30 MG/ML Syringe IV (20:06)
[2024-12-01] MEDS: Metoclopramide 10 MG/2 ML Vial IV (20:07)
--- NOTE | 2024-12-01 20:10 | RAD_ITS ---
INDICATION: cough EXAMINATION/TECHNIQUE: X-RAY - XR Chest 2 Views COMPARISON: None. FINDINGS: The lungs are clear. The cardiomediastinal silhouette is unremarkable. No pleural effusion or pneumothorax. No acute osseous abnormalities. RAD/Chest PA and Lateral IMPRESSION: No acute radiographic abnormalities. Electronically Signed: Petar Ferrari MD at 20:49 EST ,
[2024-12-01] MEDS: Acetaminophen 325 MG Tablet 650 MG PO (20:19)
[2024-12-01 21:04] LABS: Mucous, Urine 0 SEEN /hpf (<or=2+); Red Blood Cells-Urine 0 SEEN /hpf (0-5); White Blood Cells 0 SEEN /hpf (0-5)
[2024-12-01 21:07] LABS: Glucose, Dipstick Normal (Normal); Ketone-Dipstick Negative (Negative); Leukocyte Esterase-Dipstick 25 /ul (Negative); Nitrite-Dipstick Negative (Negative); Protein-Dipstick 15 mg/dl (Negative); Specific Gravity, Urine 1.015 (1.002-1.030); Urine Bilirubin Dipstick Negative (Negative); Urine Urobilinogen Normal (Normal)
[2024-12-01 21:10] LABS: Occult Blood-Urine 150 /ul (Negative)
[2024-12-01 21:13] LABS: Color, Urine Yellow (Yellow); Urine Clarity Clear (Clear)
[2024-12-01 21:17] LABS: Bacteria 1+ /hpf (None Seen); Squamous Epithelial Cells - UA 0-5 SEEN /hpf (5-10)
[2024-12-01 21:21] VITALS: BP 108/73; PULSE 90; RESP 18; O2SAT 95
[2024-12-01] MEDS: Acetaminophen 500 MG Tablet PO (21:30)
[2024-12-01] MEDS: DiphenhydrAMINE 50 MG/ML Syringe 25 MG IV (21:31)
[2024-12-01] MEDS: Oseltamivir Phosphate 75 MG Capsule PO (22:18)
[2024-12-01 22:20] VITALS: BP 103/77; PULSE 91; RESP 18; TEMP 36.8; O2SAT 95
== END 2024-12-01 22:25 | disposition home or self-care (01) ==
PROVIDERS: Emergency Provider Emergency Medicine; PCP Student in an Organized Health Care Education/Training Program; Visit Provider Emergency Medicine
DX: J10.00 Influenza due to other identified influenza virus with unspecified type of pneumonia (principal); I10 Essential (primary) hypertension; R51.9 Headache, unspecified; E03.9 Hypothyroidism, unspecified; Z79.899 Other long term (current) drug therapy; Z79.890 Hormone replacement therapy

== ENCOUNTER → 2025-01-31 | Outpatient (CLI) | payer MEDICAID, SELFPAY ==
--- NOTE | 2025-01-31 13:56 | STRESSREP ---
Stress Test Report Date: 01/31/2025 Procedure: Exercise tolerance test Indications: Preoperative evaluation Consent: Per the patient Procedure: The patient exercised on a Tenzin protocol for 4 minutes and 50 seconds achieving a peak heart rate of 169 bpm (93% predicted maximal heart rate) with a peak blood pressure 144/90 mmHg and a peak MET capacity of approximately 7 MET's. The baseline ECG demonstrated normal sinus rhythm. The peak exercise ECG demonstrated no significant ischemic changes. [There were no cardiac dysrhythmias pretest, during exercise, or recovery]. The functional capacity was considered mildly decreased for age. The patient had no complaint of chest discomfort during exercise or recovery. The examination was discontinued secondary to achieving target heart rate. Impression: 1. Technically adequate (percent predicted maximal heart rate greater than 85%) exercise tolerance test 2. Stress test is negative for exercise-induced chest pain. 3. Stress test test is negative for exercise-induced EKG changes of ischemia. 4. Functional capacity is mildly decreased for age This note was generated with [employer] software. It may contain incorrect words, spelling, and punctuation that were not noted in checking the note before signing.
== END | disposition home or self-care (01) ==
LOC: CVS 08:32
PROVIDERS: PCP Student in an Organized Health Care Education/Training Program; Referring Provider Nurse Practitioner Family; Visit Provider Nurse Practitioner Family
DX: Z01.818 Encounter for other preprocedural examination (principal); R06.02 Shortness of breath
CPT/HCPCS: 93017

== ENCOUNTER 2025-05-03 17:06 | Emergency (ER) | payer MEDICAID, SELFPAY ==
[2025-05-03 17:07] VITALS: BP 121/92; PULSE 103; RESP 18; TEMP 36.9; O2SAT 98; BMI 40.6
[2025-05-03 18:01] VITALS: BP 110/67; PULSE 88; RESP 18; TEMP 36.9; O2SAT 98
--- NOTE | 2025-05-03 18:03 | ED.RN ---
Pt declined I&D stating that she wants to try less invasive things first
--- NOTE | 2025-05-03 18:10 | EDS_ITS ---
HPI History of Present Illness Chief Complaint: Other, Pain/Inj Informant: patient Narrative Narrative: Presents concerning hemorrhoid noted 5 days ago was progressing. There was initial bleeding that is increased. Pain with sitting on it. No known history of hemorrhoids. No anticoagulants. Tried Preparation H last night was burning. Couple months ago had cholecystectomy through [facility] Dr. Sauceda. Denies any hard stools. Prior similar symptoms: No PFSH PFSH Medical History Hypothyroidism Hypertension Heel spur Home Medications ?Medication ?Instructions ?Recorded ?Last Taken ?Type cetirizine 10 mg tablet 10 mg PO DAILY 08/12/22 Unkn own History fluticasone propionate 50 2 spray intranasal DAILY Unknown History mcg/actuation nasal spray,suspension levothyroxine 75 mcg tablet 75 mcg PO DAILY 08/12/22 U nknown History lisinopril 5 mg tablet 5 mg PO DAILY 08/12/22 Unkno wn History omeprazole 20 mg capsule,delayed 20 mg PO DAILY Unknown History release phentermine 37.5 mg tablet 37.5 mg PO DAILY 08/12/22 U nknown History prednisone 20 mg tablet 40 mg (2 x 20 mg) PO DAILY 5 days 10/15/24 Unknown Rx #10 tabs ondansetron 4 mg disintegrating 4 mg PO Q6H PRN nausea and 12/01/24 Unknown Rx tablet vomiting #20 tabs oseltamivir 75 mg capsule (Tamiflu) 75 mg PO Q12H 5 da ys #10 caps 12/01/24 Unknown Rx docusate sodium 100 mg capsule 100 mg PO BID #60 caps 05/03/25 Unknown Rx (Colace) hydrocortisone 1 %-pramoxine 1 % 1 applic [place] BID #10 g sharda 05/03/25 Unknown Rx rectal foam (Proctofoam HC) Allergy/AdvReac Type Severity Reaction Status Date / Time amoxicillin (Amoxicillin) Allergy Hives Verified 05/03/25 17:08 Family History no significant family his Surgical History Hx of knee surgery Social History Smoking Status: Never smoker ROS ROS ED Constitutional Constitutional ED: Denies fever(s) Cardiovascular Cardiovascular: Denies chest pain Respiratory/Chest Respiratory/Chest: Denies cough Gastrointestinal Gastrointestinal: Reports other Details: Rectal pain ; Denies diarrhea or vomiting Musculoskeletal Musculoskeletal: Denies none Integumentary Denies rash or wounds Neurologic Neurologic: Denies weakness EXAM Physical Exam Const Vital Signs: 05/03/25 17:07 05/03/25 17:25 05/03/25 18:01 Temperature 98.4 F 98.4 F Temperature Source Oral Pulse Rate 103 H 88 Respiratory Rate 18 18 Respiratory Effort Normal Non-Labored Blood Pressure 121/92 H 110/67 Blood Pressure Mean 101 81 Pulse Ox 98 98 Oxygen Delivery Method Room Air Positive well nourished and well developed General Appearance ED: well developed HEENT normocephalic and atraumatic Eyes General Eye ED: Yes normal appearance of both eyes Neck full ROM Resp normal respiratory effort and normal air movement Cardio regular rate and regular rhythm GI soft to palpation 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 No active bleeding. Extremity normal to inspection and full ROM Neuro oriented x3 Skin no rashes or lesions noted and no wounds MDM MDM MDM Narrative Medical decision making narrative: Interventions / MDM: Differential diagnosis: External hemorrhoid Diagnosis considered but do not suspect: No perianal abscess. My EKG interpretation: N/A Imaging independently reviewed and interpreted by myself: N/A External documents reviewed: N/A Test considered but not ordered:N/A ED course: Patient examination hemorrhoids with small clot no active bleeding. No significant tenderness to palpation. However discussed with patient due to pain for incision and drainage to remove the clot to help with symptoms. Initia l agreement with plans. Procedure was set up with written consent, however during discussion again patient request alternative treatment. Discussed can use Proctofoam and stool softeners and time potentially constraint. She states she would now like to try this route. She states if it worsens she will return to the ED for the procedure. She can also follow-up with her surgeon up at [facility]. All questions were answered. Re-evaluation: stable Disposition discussed with patient/family/significant other: Patient Case discussed with consulting clinician: N/A This note was generated with [employer] dictation software. It may contain incorrect words, spelling, and punctuation that were not noted in checking the note before signing. Discharge Plan Triage Chief Complaint: Other, Pain/Inj ED Provider: Ferny Daniel Dx/Rx/DC Orders Clinical Impression: External hemorrhoids Instructions: Treating Hemorrhoids: Self-Care, Understanding Hemorrhoids Prescriptions: New Proctofoam HC 1-1 % foam 1 applic [place] BID Qty: 10 0RF docusate sodium [Colace] 100 mg capsule 100 mg PO BID Qty: 60 0RF No Action cetirizine 10 mg tablet 10 mg PO DAILY Patient Comments: TAKE 1 TABLET BY MOUTH DAILY phentermine 37.5 mg tablet 37.5 mg PO DAILY Patient Comments: TAKE 1 TABLET BY MOUTH ONCE DAILY FOR 30 DAYS levothyroxine 75 mcg tablet 75 mcg PO DAILY Patient Comments: Take 1 tablet by mouth once daily. In the morning before breakfast, Take on empty stomach. For Thyroid omeprazole 20 mg capsule,delayed release(DR/EC) 20 mg PO DAILY Patient Comments: Take 1 capsule by mouth daily before breakfast. 1/2 hr before meal. lisinopril 5 mg tablet 5 mg PO DAILY Patient Comments: Take 1 tablet by mouth once daily. fluticasone propionate 50 mcg/actuation spray,suspension 2 spray INTRANASAL DAILY Patient Comments: Use 2 Sprays in each nostril once daily. Rinse mouth after use. prednisone 20 mg tablet 40 mg PO DAILY 5 Days Qty: 10 0RF ondansetron 4 mg tablet,disintegrating 4 mg PO Q6H PRN (Reason: nausea and vomiting) Qty: 20 0RF oseltamivir [Tamiflu] 75 mg capsule 75 mg PO Q12H 5 Days Qty: 10 0RF Primary Care Provider: Luis Fernando Dunlap Referrals: Luis Fernando Dunlap DO [Primary Care Provider] - Activity Restrictions/Additional Instructions: External hemorrhoid. He declined incision and drainage in the ED. Use Proctofoam and Colace. You can call to follow-up with your surgeon, Dr. Sauceda. If symptoms worsen, return to the ED. Print Language: Burkinan Disposition Disposition: Home, Self Care
== END 2025-05-03 18:10 | disposition home or self-care (01) ==
PROVIDERS: Emergency Provider Emergency Medicine; PCP Student in an Organized Health Care Education/Training Program; Visit Provider Emergency Medicine
DX: K64.4 Residual hemorrhoidal skin tags (principal); I10 Essential (primary) hypertension; E03.9 Hypothyroidism, unspecified
CPT/HCPCS: 99282